=== PATIENT | female | born 1970 | race Caucasian/White ===

== ENCOUNTER 2020-07-04 19:53 | Emergency (ER) | payer OTHER, SELFPAY ==
[2020-07-04 20:01] VITALS: BP 116/68; PULSE 107; RESP 18; TEMP 36.8; O2SAT 95; BMI 22.9
--- NOTE | 2020-07-04 21:05 | ED_ITS ---
HPI - Alcohol General Chief Complaint: ETOH/Substance Use Stated Complaint: crisis Time Seen by Provider: 07/04/20 21:04 Source: patient Mode of arrival: ambulatory Limitations: other (intoxication) History of Present Illness HPI narrative: + ETOH hx of opiate abuse on suboxone wrote some concerning sticky notes with SI statements on them at this time she isn't really sure why or how she did it, denies SI, concerned complaint: alcohol intoxication Last drink: Days (ago) (14) Chronic alcohol use: Yes Previous visits for alcohol intoxication: Yes Recent trauma: No Associated symptoms: depression Treatments prior to arrival: none Related Data Allergies Allergy/AdvReac Type Severity Reaction Status Date / Time amoxicillin [From Augmentin] Allergy Hives Verified 07/04/20 20:09 clavulanic acid Allergy Hives Verified 07/04/20 20:09 [From Augmentin] Review of Systems Review of Systems: Constitutional : No Fever, No Chills ENT/Mouth : No Ear Pain, No Nasal Congestion, No sore throat Eyes: No Eye Pain, No Swelling, No Redness Cardiovascular : No Chest Pain, No SOB Respiratory : No Cough, No Sputum, No Dyspnea Gastrointestinal : No Nausea, No Vomiting, No Diarrhea, No Hematochezia, No Melena Genitourinary : No Dysuria, No Urinary Frequency, No Hematuria Musculoskeletal : No Myalgias Skin : No Skin Lesions, No rash Neuro : No Weakness, No Numbness, No Paresthesias, No Dizziness, No Headache Psych : positive Anxiety, positive Depression, no SI/HI Heme/Lymph: No Lymphadenopathy Endocrine : No Polyuria, No Polydipsia All other systems reviewed and are negative [facility], [facility] Past Medical History Attestation statement: The following information was validated with the patient. Medical History Depression ETOH abuse Narcotic abuse Shoulder pain Social History Social History (Updated 07/04/20 @ 21:44 by Denita Tom DO) Alcohol intake: current Smoking Status: Current every day smoker Use of substances other than those prescribed or required for medical reasons: Yes Advance Directives: No Advance Directives Information Provided: Yes Physical Exam Vital Signs: Vital Signs: Last Vital Signs Temp 98.0 F 07/05/20 01:05 Pulse 64 07/05/20 01:05 Resp 16 07/05/20 02:00 BP 109/75 07/05/20 01:05 Pulse Ox 99 07/05/20 01:05 Body Mass Index 22.9 Appearance: Alert. Oriented X3. No acute distress. ETOH odor, slurred speech Eyes: Pupils equal, round and reactive to light. ENT: Pharynx normal. Neck: Normal inspection. Neck supple. CVS: Normal heart rate and rhythm. Pulses normal. Respiratory: No respiratory distress. Breath sounds normal. Abdomen: Soft and non-tender. Skin: Skin warm and dry. Normal skin color. Normal skin turgor. Extremities: No lower extremity edema. No calf ttp Neuro: Oriented X 3. No motor deficit. No sensory deficit. CN 2-12 intact Psych: no SI/HI but reports depression Course Course Course Narrative: signed out pending CARE team consult MDM - Alcohol MDM Narrative Medical decision making narrative: 49 yo female with hx of opiate abuse on suboxone but recently started drinking made some SI statements on sticky notes today - at this time will need labs, [facility] consult given the notes and concerning statements she made in triage Lab Data Result diagrams: 07/04/20 21:26 07/04/20 21:26 Labs: Lab Results 07/04/20 07/04/20 07/04/20 Range/Units 21:26 21:26 21:26 WBC 6.6 (4.8-10.8) X10*3/uL RBC 4.61 (4.20-5.50) X10*6/uL Hgb 14.6 (12.0-16.0) g/dl Hct 43.2 (37-47) % MCV 93.7 (80-98) fL MCH 31.7 (27.0-33.0) pg MCHC 33.8 (31.0-35.0) g/dl RDW 12.6 (11.0-16.0) % Plt Count 234 (160-400) X10*3/uL MPV 8.6 L (9.4-12.3) fL Immature Gran % (Auto) 0.5 H (0.0-0.4) % Neut % (Auto) 61.2 (45-73) % Lymph % (Auto) 32.7 (20-40) % Caswell % (Auto) 4.1 (2-11) % Eos % (Auto) 0.9 (0-4) % Baso % (Auto) 0.6 (0-2) % Lymph # (Auto) 2.2 (1.2-4.9) X10*3/uL Caswell # (Auto) 0.3 (0.1-1.2) X10*3/uL Eos # (Auto) 0.1 (0.0-0.4) X10*3/uL Baso # (Auto) 0.0 (0.0-0.2) X10*3/uL Abs Immat Gran (auto) 0.03 (0.00-0.03) X10*3/uL Absolute Neuts (auto) 4.1 (2.0-8.3) X10*3/uL Absolute Nucleated RBC 0.000 (0.0-0.012) X10*3/uL Nucleated RBC % (auto) 0.0 (0.0-0.2) /100WBC Sodium 145 (135-145) mmol/L Potassium 3.6 (3.3-5.1) mmol/L Chloride 109 H (96-108) mmol/L Carbon Dioxide 26 (22-29) mmol/L Anion Gap 14 (12-20) BUN 7 L (9-16) mg/dL Creatinine 0.76 (0.5-1.4) mg/dL Estim Creat Clear Calc 78.8 Estimated GFR > 60 Random Glucose 101 (60-115) mg/dL Calcium 8.6 (8.4-10.2) mg/dL Urine Opiates Screen (Not Detect) Ur Barbiturates Screen (Not Detect) Ur Phencyclidine Scrn (Not Detect) Ur Amphetamines Screen (Not Detect) U Benzodiazepines Scrn (Not Detect) Urine Cocaine Screen (Not Detect) U Marijuana (THC) Screen (Not Detect) Ethyl Alcohol mg/dL COVID-19 (FRAN) Negative (Negative) COVID-19 Clin Com See Note 07/04/20 07/05/20 Range/Units 21:26 01:10 WBC (4.8-10.8) X10*3/uL RBC (4.20-5.50) X10*6/uL Hgb (12.0-16.0) g/dl Hct (37-47) % MCV (80-98) fL MCH (27.0-33.0) pg MCHC (31.0-35.0) g/dl RDW (11.0-16.0) % Plt Count (160-400) X10*3/uL MPV (9.4-12.3) fL Immature Gran % (Auto) (0.0-0.4) % Neut % (Auto) (45-73) % Lymph % (Auto) (20-40) % Caswell % (Auto) (2-11) % Eos % (Auto) (0-4) % Baso % (Auto) (0-2) % Lymph # (Auto) (1.2-4.9) X10*3/uL Caswell # (Auto) (0.1-1.2) X10*3/uL Eos # (Auto) (0.0-0.4) X10*3/uL Baso # (Auto) (0.0-0.2) X10*3/uL Abs Immat Gran (auto) (0.00-0.03) X10*3/uL Absolute Neuts (auto) (2.0-8.3) X10*3/uL Absolute Nucleated RBC (0.0-0.012) X10*3/uL Nucleated RBC % (auto) (0.0-0.2) /100WBC Sodium (135-145) mmol/L Potassium (3.3-5.1) mmol/L Chloride (96-108) mmol/L Carbon Dioxide (22-29) mmol/L Anion Gap (12-20) BUN (9-16) mg/dL Creatinine (0.5-1.4) mg/dL Estim Creat Clear Calc Estimated GFR Random Glucose (60-115) mg/dL Calcium (8.4-10.2) mg/dL Urine Opiates Screen Not Detected (Not Detect) Ur Barbiturates Screen Not Detected (Not Detect) Ur Phencyclidine Scrn Not Detected (Not Detect) Ur Amphetamines Screen Not Detected (Not Detect) U Benzodiazepines Scrn Not Detected (Not Detect) Urine Cocaine Screen Not Detected (Not Detect) U Marijuana (THC) Screen Not Detected (Not Detect) Ethyl Alcohol 300 H* mg/dL COVID-19 (FRAN) (Negative) COVID-19 Clin Com Discharge Plan Discharge Clinical Impression: Alcoholic intoxication Qualifiers: Complication of substance-induced condition: uncomplicated Qualified Code(s): F10.920 - Alcohol use, unspecified with intoxication, uncomplicated
--- NOTE | 2020-07-04 21:21 | PC.NURSE ---
at bedside for primary eval. Covid swab obtained and sent. customer service technician at bedside to obtain labs. Awaiting results.
[2020-07-04 21:41] LABS: MANUAL DIFF FLAG NO
[2020-07-04 21:44] LABS: Basophils Percent Auto 0.6 % (0-2); Eosinophils Absolute Auto 0.1 X10*3/uL (0.0-0.4); Eosinophils Percent Auto 0.9 % (0-4); Hematocrit 43.2 % (37-47); Hemoglobin 14.6 g/dl (12.0-16.0); Imm Gran Abs Auto 0.03 X10*3/uL (0.00-0.03); Imm Gran Pct Auto 0.5 % (0.0-0.4); Lymphocytes Absolute Auto 2.2 X10*3/uL (1.2-4.9); Lymphocytes Percent Auto 32.7 % (20-40); Mean Corpuscular HGB Conc 33.8 g/dl (31.0-35.0); Mean Corpuscular Hemoglobin 31.7 pg (27.0-33.0); Mean Corpuscular Volume 93.7 fL (80-98); Mean Platelet Volume 8.6 fL (9.4-12.3); Monocytes Absolute Auto 0.3 X10*3/uL (0.1-1.2); Monocytes Percent Auto 4.1 % (2-11); Neutrophils Absolute Auto 4.1 X10*3/uL (2.0-8.3); Neutrophils Percent Auto 61.2 % (45-73); Platelet Count 234 X10*3/uL (160-400); Red Blood Count 4.61 X10*6/uL (4.20-5.50); Red Cell Distribution Width 12.6 % (11.0-16.0); White Blood Count 6.6 X10*3/uL (4.8-10.8)
[2020-07-04 22:00] VITALS: RESP 16
[2020-07-04 22:00] LABS: IDNOW Serial# 9DD0AD1C
[2020-07-04 22:01] LABS: COVID-19 Test Negative (Negative)
[2020-07-04 22:06] LABS: Ethanol 300 mg/dL
[2020-07-04 22:07] LABS: Anion Gap 14 (12-20); Blood Urea Nitrogen 7 mg/dL (9-16); Calcium 8.6 mg/dL (8.4-10.2); Carbon Dioxide 26 mmol/L (22-29); Chloride 109 mmol/L (96-108); Creatinine Clr Calc Pharmacy 78.8; Estimated Glomerular Filt Rate > 60; Glucose Random 101 mg/dL (60-115); Potassium 3.6 mmol/L (3.3-5.1); Sodium 145 mmol/L (135-145)
[2020-07-05 01:05] VITALS: BP 109/75; PULSE 64; RESP 16; TEMP 36.7; O2SAT 99
[2020-07-05 01:45] LABS: Amphetamine Screen Urine Not Detected (Not Detect); Barbiturates, Urine Not Detected (Not Detect); Benzodiazepines Screen Urine Not Detected (Not Detect); Cannabinoid Screen Urine Not Detected (Not Detect); Cocaine Screen Urine Not Detected (Not Detect); Opiate Screen Urine Not Detected (Not Detect); Phencyclidine Screen Urine Not Detected (Not Detect)
[2020-07-05 02:00] VITALS: RESP 16
[2020-07-05 05:49] VITALS: RESP 16
[2020-07-05 08:39] VITALS: RESP 18
--- NOTE | 2020-07-05 08:41 | PC.NURSE ---
patient up in bed eating dinner
[2020-07-05] MEDS: Acetaminophen 325 MG TABLET 650 MG PO (09:23)
--- NOTE | 2020-07-05 10:20 | MHC.CARE ---
CARE team to meet w pt for concern of ETOH intoxication and seeking detox per triage note as well as possible suicidal ideation statements that were handed to nsg last night from pts . Pt is currently denying suicidal ideation and stated she has no memory of making such statements. T/w placed a call to pts In[facility] [phone] no answer and no voicemail.
--- NOTE | 2020-07-05 11:24 | MHC.CARE ---
CARE team provided pt with a phone to call her as she wished and alerted her that he was called twice by t/w without answer. She called pt and he answered. Pt was referred to in house team for assist in detox bedsearch. Pt expressed interest and willingness to seek this tx.
--- NOTE | 2020-07-05 11:49 | MHC.RECOVSUP ---
Recovery Support note: Patient is a 49 year old Belgian speaking female who presented to [facility] ED after making SI statements while intoxicated. Patient was seen by CARE Team this morning and denied SI however reported she was interested in going to detox. This marine underwriter and a Program Review Director met with patient to discuss treatment options. Patient reported her was on the phone with [facility] to get her treatment and that she was agreeable to this. Explained to patient that she would benefit from inpatient medical detox prior to outpatient treatment. Patient acknowledged. Patient reports she had dealt with opioid withdrawal in the past and that she has been on Suboxone for 8 years. Patient reports she is ready to get into recovery and that she is willing to go to detox. This marine underwriter spoke with patient's and explained that detox referrals had been made. denies safety concerns and reports that he believes the statements made were a cry for help and that patient is not suicidal. reports he is able to transport patient to treatment facility once a bed is secured. This marine underwriter awaits a follow up call from [facility] to determine if patient is able to move forward with a phone intake. Patient agreeable at this time to remain in the ED until placement is secured.
[2020-07-05 12:47] VITALS: RESP 18
--- NOTE | 2020-07-05 12:47 | MHC.RECOVSUP ---
Recovery Support note: Patient has completed intake with [facility] and has been accepted for a 1800 admission time. Patient is happy with plan and feels safe to discharge. Discussed plan with patient's who is also in agreement and available for transportation needs. ED Staff and CARE Team aware. Patient to discharge and follow up with [facility]. N-N number for [facility] ([phone]) has been given to patient's RN, Steven.
--- NOTE | 2020-07-05 16:01 | MHC.CARE ---
Pt is a 49 yro Amharic speaking female who presented to [facility] ED last night via private car seeking ETOH detox per pts . Per medical chart, pts expressed concern that pt needed acute care setting due to her ETOH dependence and for possible suicidal thinking. Triage note indicated that pts (Ino) provided 'sticky notes' with pts written notes indicating pt was thinking about suicide or references thereof. Pt was admitted to the ED for further assessment. CARE saw pt this am in ED 6H who was resting quietly on a stretcher awaiting to be seen. Pts BAL upon arrival was 300 of which is too high for clinical interview. Pt was soft spoken and presented with anxious mood but pleasant affect. Pt described feeling embarrassed of what I may have done or said last night. Pt has no memory of how she arrived or that she may have said and written suicidal thoughts. Pt was informed prior to t/w arrival of this and pt asked t/w if she could see these notes as it was too much for her to imagine that she would make such statements. Pt firmly denied knowingly making suicidal statements and added that she would not harm herself due to her relationship with her mother and her . Pt did admit that she is fully aware and willing at this point to seek detox help. T/w and pt reviewed tx options and t/w recommendation was a firm detox referral or medical admission due to the severity of her daily ETOH frequency and amount. Pt has reportedly attempted mental health counseling multiple times over the last 5 years and has not found it helpful. Pt admitted that she continues to choose to drink and has increased the amount is her ETOH to over 10-15 nips a day plus more depending on access. Pt has admitted to functioning daily with high amounts of ETOH on board and regrets this today. Pt does not feel that she can stop drinking and yet expressed sincere desire to stop. Pt is willingly seeking tx at this time. Pts was calling detox facilities all morning on pts behalf. Pt spoke w her later this am and he was also in favor and supportive of this plan. Pt does not have a remarkable mental health hx or tx hx. Pt has experienced chemical dependence 6 years ago when she disclosed that she was abusing pain medications and had a hard time getting off them . Pt has had success from using suboxone and family support. Pt would consider other avenues of support ie: counseling, support groups and IOP after she completes detox. Pt was referred to in house team specializing in addictions to assist in detox placement. Pt was secured an interview and later a bed at [facility] for today. Case reviewed with ED provider who discharged pt in support of this formal plan.
== END 2020-07-05 13:19 | disposition home or self-care (01) ==
PROVIDERS: Emergency Provider Emergency Medicine; PCP Pediatrics
DX: F10.120 Alcohol abuse with intoxication, uncomplicated (principal); Y90.8 Blood alcohol level of 240 mg/100 ml or more; R45.851 Suicidal ideations; Z20.822 Contact with and (suspected) exposure to COVID-19; F11.20 Opioid dependence, uncomplicated; F17.200 Nicotine dependence, unspecified, uncomplicated
CPT/HCPCS: 36415; 80048; 80307; 80320; 85025; 87635; 99285

== ENCOUNTER → 2020-11-13 13:05 | Outpatient (BNVA) | payer OTHER, SELFPAY | PROVIDERS: PCP Pediatrics | DX: N32.81 Overactive bladder (principal) | CPT/HCPCS: 51798; 99202 ==

== ENCOUNTER → 2021-02-04 15:36 | Outpatient (BNVA) | payer OTHER, SELFPAY | PROVIDERS: PCP Pediatrics ==

== ENCOUNTER → 2021-04-08 13:32 | Outpatient (BNVA) | payer OTHER, SELFPAY | PROVIDERS: PCP Pediatrics ==

== ENCOUNTER 2021-10-09 20:45 | Emergency (ER) | payer OTHER, SELFPAY ==
--- NOTE | ~2021-10-09 | XR_ITS ---
EXAMINATION: XR ELBOW, RIGHT CLINICAL INFORMATION: Elbow pain COMPARISON: None TECHNIQUE: AP, lateral, and oblique views of the right elbow. FINDINGS: There is an acute fracture of the radial head with intra-articular extension. There is a small joint effusion. There is mild calcific tendinopathy. The elbow joint maintains normal alignment. XR/XR elbow RT 2V IMPRESSION: Acute radial head fracture.
[2021-10-09 21:28] VITALS: BP 178/120; PULSE 78; RESP 18; O2SAT 97; BMI 24.1
--- NOTE | 2021-10-10 00:29 | ED_ITS ---
HPI - Extremity Problem General Chief complaint: Extremity Injury, Upper Stated complaint: fall/arm INJ Time Seen by Provider: 10/09/21 21:53 Source: patient Mode of arrival: ambulatory Limitations: no limitations History of Present Illness HPI Narrative: Patient presents emergency department for evaluation of pain to her right elbow. She reports a mechanical trip and fall earlier today, she tripped on a curb. She states that she was evaluated at [facility] and was advised to come to the emergency department for further management. Pain present to the left elbow and radiates down the forearm. Denies any numbness or tingling. Is unable to move her arm at this time. She states that she did hit her head when this occurred as well, denies loss of consciousness, vision changes, dizziness, lightheadedness, headache, neck pain, neck stiffness, use of anticoagulants. Related Data Home Medications Medication Instructions Recorded Confirmed buprenorphine 8 mg-naloxone 2 mg 1.5 strip SUBLINGUAL DAILY 07/05/20 07/05/20 sublingual film (Suboxone) bupropion HCl 300 mg 24 hr tablet, 1 tab PO DAILY 07/05/20 07/05/20 extended release lisinopril 10 mg tablet 1 tab PO DAILY 07/05/20 07/05/20 naproxen 500 mg tablet 1 tab PO BID PRN 07/05/20 07/05/20 omeprazole 20 mg capsule,delayed 1 cap PO DAILY 07/05/20 07/05/20 release sertraline 50 mg tablet 50 mg PO DAILY 07/05/20 07/05/20 trazodone 50 mg tablet 50 mg PO BID 07/05/20 07/05/20 bupropion HCl 150 mg 24 hr tablet, 150 mg PO QAM 02/04/21 extended release dicyclomine 10 mg capsule 10 mg PO TID 02/04/21 oxybutynin chloride 10 mg 10 mg PO DAILY 02/04/21 tablet,extended release 24 hr paroxetine HCl 20 mg tablet 20 mg PO DAILY 02/04/21 sertraline 100 mg tablet 100 mg PO BID 02/04/21 Previous Rx's Medication Instructions Recorded vibegron 75 mg tablet (Gemtesa) 75 mg PO DAILY #30 tab 04/08/21 ketorolac 10 mg tablet 10 mg PO Q6H PRN 5 Days tab 10/10/21 Allergies Allergy/AdvReac Type Severity Reaction Status Date / Time amoxicillin [From Augmentin] Allergy Hives Verified 02/04/21 15:43 clavulanic acid Allergy Hives Verified 02/04/21 15:43 [From Augmentin] Review of Systems Review of Systems: Constitutional: No fever, chills, weakness or fatigue. Skin: No rash or itching. Cardiovascular: No chest pain. Respiratory: No shortness of breath, cough or sputum production. Gastrointestinal: No anorexia, nausea, vomiting or diarrhea. No abdominal pain or blood in stool. Genitourinary: No burning micturition. No urinary frequency or incontinence. Musculoskeletal: Positive elbow pain. Psychiatric: No depression or anxiety. [facility] Past Medical History Attestation statement: The following information was validated with the patient. Source: old records reviewed Medical History Depression ETOH abuse Narcotic abuse Shoulder pain Social History Social History Alcohol intake: current Alcohol intake frequency: 3 or more drinks per day Advance Directives: No Physical Exam Vital Signs: Vital Signs: Last Vital Signs Pulse 78 10/09/21 21:28 Resp 18 10/09/21 21:28 BP 169/103 H 10/10/21 00:31 Pulse Ox 97 10/09/21 21:28 BMI result Body Mass Index 24.1 Vital signs have been reviewed as normal and appeared to be correct. Blood pressure normal.? Heart rate normal.? Respiration rate normal. Temperature 97.8.? Oxygen saturation normal. Appearance: Alert.?Oriented to person, place and time. No acute distress.?Normal affect. Eyes: Pupils equal, round and reactive to light.? EOMI. No nystagmus. ENT: Pharynx normal.?? Neck: Normal inspection.? Neck supple.??No palpable midline cervical spine tenderness, step-offs, deformities. CVS: Heart sounds normal. Normal heart rate and rhythm.? Pulses normal.?? Respiratory: No respiratory distress.? Lung sounds clear to auscultation bilaterally?? Abdomen: Soft and non-tender. Normoactive bowel sounds. Skin: Skin warm and dry.? Normal skin color.? Extremities: No obvious deformity to the right elbow/forearm, palpable 2+ radial pulse is, neurovascularly intact distally, limited AROM to elbow. Full AROM to right shoulder, right wrist/hand. Neuro: Moves all extremities spontaneously. Sensation intact bilaterally. CN II- XII intact. No focal neuro deficits. Ambulates with normal steady gait. Course Course Course Narrative: Patient is a 51-year-old female presenting to the emergency department after a mechanical trip and fall. Did have head strike, but no loss of consciousness, no neurological deficits, no anticoagulants. Discussed plan of care with patient, would defer CT imaging at this time. X-ray reveals an acute fracture of the radial head with intra-articular extension and a small joint effusion. Patient placed in a posterior long arm splint, and placed in a sling to immobilize the arm. She received IM ketorolac while in the emergency department, and tolerated this well. She takes Suboxone as well. She remained neurovascularly intact distally after application of the splint. Advised that she will need to contact the orthopedic office tomorrow to schedule an outpatient appointment for further follow-up. All questions were answered, and she was discharged home in stable condition. MDM - Extremity (Nontraumatic) Medical Records Attestation: I reviewed the patient's medical records. Imaging Data elbow XR: Radiologist's impression: FINDINGS: There is an acute fracture of the radial head with intra-articular extension. There is a small joint effusion. There is mild calcific tendinopathy. The elbow joint maintains normal alignment. XR/XR elbow RT 2V IMPRESSION: Acute radial head fracture. Discharge Plan Discharge Clinical Impression: Fracture of head of radius Patient Disposition: Home, Self-Care Instructions: Elbow Fracture (ED) Additional Instructions: You have a radial head fracture seen on x-ray. Do not get the splint wet, use the sling to help keep your arm from moving. You have been given a new prescription for ketorolac, do not take ibuprofen/Motrin, naproxen/Aleve, or aspirin while taking this medication. You may take Tylenol in addition to this. Continue taking your Suboxone as prescribed. Return to the emergency department any new or worsening symptoms or concerns. Contact orthopedic office tomorrow morning to schedule a follow-up visit. Prescriptions: New ketorolac 10 mg tablet 10 mg PO Q6H PRN (Reason: pain) 5 Days 0RF Rx Instructions: Patient tolerated intramuscular ketorolac in the emergency department without complication. No Action trazodone 50 mg tablet 50 mg PO BID 0RF lisinopril 10 mg tablet 1 tab PO DAILY 0RF omeprazole 20 mg capsule,delayed release(DR/EC) 1 cap PO DAILY 0RF sertraline 50 mg tablet 50 mg PO DAILY 0RF naproxen 500 mg tablet 1 tab PO BID PRN (Reason: pain) 0RF bupropion HCl 300 mg tablet extended release 24 hr 1 tab PO DAILY 0RF buprenorphine-naloxone [Suboxone] 8-2 mg film 1.5 strip sublingual DAILY 0RF Gemtesa 75 mg tablet 75 mg PO DAILY Qty: 30 3RF Referrals: Luis Alberto Smith, MAGGI [Physician M[facility] Reactor Operator Head] - 3 days
[2021-10-10 00:31] VITALS: BP 169/103
[2021-10-10] MEDS: Ketorolac Tromethamine 60 MG/2 ML VIAL IM (00:43)
--- NOTE | 2021-10-10 01:07 | PC.NURSE ---
POSTERIOR LONG ARM SPLINT APPLY TO PATIENT RIGHT ARM .
== END 2021-10-10 01:25 | disposition home or self-care (01) ==
PROVIDERS: Emergency Provider Internal Medicine; PCP Internal Medicine
DX: S52.121A Displaced fracture of head of right radius, initial encounter for closed fracture (principal); M25.521 Pain in right elbow; W01.0XXA Fall on same level from slipping, tripping and stumbling without subsequent striking against object, initial encounter; Y93.9 Activity, unspecified; Y92.480 Sidewalk as the place of occurrence of the external cause; Y99.9 Unspecified external cause status; Z79.899 Other long term (current) drug therapy
CPT/HCPCS: 29105; 73070; 96372; 99282; 99284; J1885

== ENCOUNTER → 2021-10-15 13:25 | Outpatient (BNVA) | payer OTHER, SELFPAY | PROVIDERS: PCP Internal Medicine; Visit Provider Physician Assistant | DX: S52.121A Displaced fracture of head of right radius, initial encounter for closed fracture (principal) | CPT/HCPCS: 99202 ==

== ENCOUNTER 2021-11-12 07:46 | Outpatient (REF) | payer OTHER, SELFPAY ==
--- NOTE | ~2021-11-12 | XR_ITS ---
EXAMINATION: XR ELBOW, RIGHT CLINICAL INFORMATION: Follow-up fracture COMPARISON: None TECHNIQUE: AP, lateral, and oblique views of the right elbow. FINDINGS: There is a nondisplaced fracture of the radial head. Alignment is similar to previous exam. There is some new bony callus formation suggestive of evidence of healing. No other fracture is seen. Joint spaces are normal. There is an elbow joint effusion. There is soft tissue calcification adjacent to the lateral humeral condyle. XR/XR elbow RT min 3V IMPRESSION: Healing radial head fracture.
== END 2021-11-12 07:47 | disposition home or self-care (01) ==
LOC: HO.HOSX 07:46
PROVIDERS: Visit Provider Physician Assistant
DX: M25.521 Pain in right elbow (principal); S52.124A Nondisplaced fracture of head of right radius, initial encounter for closed fracture; W01.198A Fall on same level from slipping, tripping and stumbling with subsequent striking against other object, initial encounter; Y93.01 Activity, walking, marching and hiking; Y92.9 Unspecified place or not applicable; Y99.8 Other external cause status
CPT/HCPCS: 73080; 99212

== ENCOUNTER 2021-12-11 10:42 | Outpatient (REF) | payer OTHER, SELFPAY ==
--- NOTE | ~2021-12-11 | XR_ITS ---
EXAMINATION: XR ELBOW, RIGHT CLINICAL INFORMATION: Pain. COMPARISON: Prior radiographs dated 11/12/2021 and 10/09/2021. TECHNIQUE: AP, lateral, and oblique views of the right elbow. FINDINGS: Bony alignment and mineralization are normal. A mildly displaced fracture is noted of the radial head, in stable alignment. There is a small amount of periosteal callus formation. No dislocation is seen. There is no significant joint effusion. No foreign body is seen. XR/XR elbow RT min 3V IMPRESSION: There is stable alignment of a radial head fracture, with persistent fracture line noted.
== END 2021-12-11 10:43 | disposition home or self-care (01) ==
LOC: HO.HOSX 10:42
PROVIDERS: Visit Provider Physician Assistant
DX: S52.121D Displaced fracture of head of right radius, subsequent encounter for closed fracture with routine healing (principal)
CPT/HCPCS: 73080; 99212

== ENCOUNTER 2023-09-28 11:10 | Outpatient (AMB) | payer OTHER, SELFPAY ==
--- NOTE | 2023-09-28 11:12 | MHC.PC.OV ---
Vital Signs 09/28/23 11:20 Height 5 ft 5 in Weight 160 lb 8 oz BMI 26.7 BP 102/80 Blood Pressure Location Lt brachial Position Sitting Respiration 14 Pulse 85 Pulse Source Pulse Oximeter Temp 98.4 F Temp Source Oral Pulse Oximetry (%) 94 Oxygen Delivery Method Room Air Intake Visit Reasons: Est Care Intake Note: New patient visit Cigar Bander Hand Required: No Allergies amoxicillin [From Augmentin] Allergy (Verified 09/28/23 11:17) Hives clavulanic acid [From Augmentin] Allergy (Verified 09/28/23 11:17) Hives Medication List - Last Reconciled 09/28/23 by Nereyda Sheppard MD acamprosate 666 mg PO TID nicotine apply 1-21 mg NICOTINE PATCH daily for 28 days; follow with 1-14 mg PATCH daily for 14 days, then 1-7mg PATCH daily for 14 days transdermal omeprazole 1 cap PO DAILY trazodone 50 mg PO BID Tobacco use date assessed: 09/28/23 Dental Screening Dental Screen Date: 09/28/23 Did you have a dental visit in the last 12 months?: Yes Did you have a dental problem in the last 6 months where you did not have access to dental care?: No Was dental information given to patient?: Patient has dentist HPI HPI Comments History of Present Illness Details 52 year old female with a past medical history htn, resolved eoth, esophageal stricture, thyroid nodules, depression presenting for follow up Psych: Anxiety & Depression: On effexor, propranolol. Was on wellbutrin for years. continues addiction support on suboxone & acamprosate CV: Previously on BP meds. High at last visit GI: Reflux, gastritis well controlled on PPI. Has esophageal stricutre, gets dilation. Follow with [facility] Dr Bond. MSK: Low back pain, DDD, Seeing ortho. Upcoming visit. Joint pain, bilateral hands with swelling. Endocrine: DXA with osteoporosis: referred for treatment given GI history. Heme/Onc Neck u/s with LN-indeterminate, stable. There was consideration for biopsy she was referred. Colonoscopy 2018-Dr Bond. 10 year repeat Follows annually with gynecology. s/p partial hysterectomy Mammo 10/2022 [facility] Medical History (Updated 09/29/23 @ 08:57 by Nereyda Sheppard MD) Hernia Lipoma of right upper extremity Narcotic abuse ETOH abuse Shoulder pain Depression Surgical History (Updated 09/28/23 @ 11:34 by Kimberlyn Fernandez CMA) History of partial hysterectomy Family History (Updated 09/28/23 @ 12:54 by Kimberlyn Fernandez CMA) Father Asthma HTN (hypertension) Hypercholesteremia Cardiovascular disease Clotting disorder Maternal Grandmother Asthma HTN (hypertension) Hypercholesteremia Cardiovascular disease Paternal Grandfather Asthma Hypercholesteremia Leukemia Social History (Updated 09/28/23 @ 11:18 by Kimberlyn Fernandez CMA) Housing: House Alcohol intake: current Alcohol intake frequency: 3 or more drinks per day Patient Tobacco Use Status: Former Tobacco user Cigarette Packs Per Day: 1 Years Smoked: 43 quit 07/2023 e-Cigarette/Vaping Use: Never Used Second Hand Smoke Exposure: No Substance Use Type: Marijuana service: No Current occupational status: unemployed Cognitive needs: No Hearing needs: No Vision needs: No Questionnaire PHQ-9 Over the last 2 weeks, how often have you been bothered by any of the following problems? 1. Little interest or pleasure in doing things: nearly every day 2. Feeling down, depressed, or hopeless: nearly every day 3. Trouble falling or staying asleep, or sleeping too much: several days 4. Feeling tired or having little energy: nearly every day 5. Poor appetite or overeating: more than half the days 6. Feeling bad about yourself - or that you are a failure or have let yourself or your family down: nearly every day 7. Trouble concentrating on things, such as reading the newspaper or watching television: nearly every day 8. Moving or speaking so slowly that other people could have noticed. Or the opposite - being so fidgety or restless that you have been moving around a lot more than usual: several days 9. Thoughts that you would be better off or of hurting yourself in some way: not at all Total score: 19 Depression Screening Interpretation: Positive Depression Screening Follow-up: Existing condition Depression Screening Done: Yes 13258 - PHQ-9 Billing: Yes Source: Developed by Drs. Chad Arteaga, Sofía Garvin, Dre Seymour and colleagues, with an educational ila from [employer]. Thrive Questionnaire Date Thrive assessed: 09/28/23 I am a: Patient What is your living situation today?: I have a steady place to live Within the past 12 months, did the food you bought not last and you didn't have the money to get more?: Never true Within the past 12 months, did you worry whether your food would run out before you got money to buy more?: Never true Do you have trouble paying for medicines?: No Do you have trouble getting transportation to medical appointments?: No Do you have trouble paying your heating and electricity bill?: No Do you have trouble taking care of your child, family member or friend?: No Do you have trouble with day-to-day activities such as bathing, preparing meals, shopping, managing finances, etc.?: No Are you currently unemployed and looking for a job?: No Are you interested in more education?: No Please select the resources that you would like help with: None Currently or been in a relationship where the following occur: no concerns reported THRIVE Score: 0 AUDIT C Alcohol Use Questionnaire (AUDIT-C) 1. How often do you have a drink containing alcohol?: 2-4 times a month 2. How many drinks containing alcohol do you have on a typical day when you are drinking?: 1 or 2 3. How often do you have six or more drinks on one occasion?: Less than monthly Total Score: 3 DAMIAN-7 AMB Questionnaire DAMIAN-7 Date DAMIAN - 7 assessed: 09/28/23 Feeling nervous, anxious, or on edge: 2 = More than half the days Not being able to stop or control worryin = Nearly every day Worrying too much about different things: 3 = Nearly every day Trouble relaxin = Nearly every day Being so restless that it is hard to sit still: 3 = Nearly every day Becoming easily annoyed or irritable: 2 = More than half the days Feeling afraid as if something awful might happen: 3 = Nearly every day Total DAMIAN-7 score (0-4 normal; 5-9 mild; 10-14 moderate; 15-21 severe): 19 Source: Developed by Drs. Chad Arteaga, Sofía Garvin, Dre Seymour and colleagues, with an educational ila from [employer] DAMIAN-7 Assessment Billing DAMIAN-7 Assessment Tool: DAMIAN-7 Assessment 90260 Review of Systems Const Details: ROS CONSTITUTIONAL: Denies weight loss, fever and chills. HEENT: Denies changes in vision and hearing. RESPIRATORY: Denies SOB and cough. CV: Denies palpitations and CP GI: Denies abdominal pain, nausea, vomiting and diarrhea. : Denies dysuria and urinary frequency. MSK: Denies new myalgia and joint pain. SKIN: Hair loss x months NEUROLOGICAL: Denies headache PSYCHIATRIC: Denies recent changes in mood. Physical exam (Primary Care) Vital Signs: Last Vital Signs Temp 98.4 F 09/28/23 11:20 Pulse 85 09/28/23 11:20 Resp 14 09/28/23 11:20 BP 102/80 09/28/23 11:20 Pulse Ox 94 09/28/23 11:20 Oxygen Delivery Method Room Air 09/28/23 11:20 PHYSICAL EXAM: GENERAL: Alert and oriented x 3. NAD EYES: EOMI. Anicteric. HENT: Moist mucous membranes. No scleral icterus. No cervical lymphadenopathy. LUNGS: Clear to auscultation bilaterally. CARDIOVASCULAR: Regular rate and rhythm. No murmur. No JVD. ABDOMEN: Soft, non-tender +bs EXTREMITIES: No edema. Non-tender. SKIN: No rashes or lesions. Warm. NEUROLOGIC: No focal neurological deficits. PSYCHIATRIC: Cooperative. Appropriate mood and affect BMI result Body Mass Index 26.7 Tobacco/Smoking Status: Tobacco use Status Tobacco use date assessed 09/28/23 09/28/23 11:31 Patient Tobacco Use Status Former Tobacco user 09/28/23 11:31 e-Cigarette/Vaping Use Never Used 09/28/23 11:31 PHQ-9: PHQ-9 Score PHQ-9: Total score 19 09/28/23 13:45 Depression Screening Interpretation: Positive Depression Screening Follow-up: Existing condition Thrive Assessment: Date of Thrive Assessment Date Thrive assessed 09/28/23 09/28/23 12:46 Currently or been in a relationship where the following occur: no concerns reported Assessment and Plan Assessment & Plan (1) Hypertension: Comment: controlled Code(s): I10 - Essential (primary) hypertension Qualifiers: Hypertension type: primary hypertension Qualified Code(s): I10 - Essential (primary) hypertension (2) Cervical spondylolysis: Comment: chronic neck and low back pain. Code(s): M43.02 - Spondylolysis, cervical region (3) Major depressive disorder, recurrent, in partial remission: Comment: continue current medications. Declines referral. Follows at [facility] Code(s): F33.41 - Major depressive disorder, recurrent, in partial remission (4) Lymph node enlargement: Comment: Monitor. s/p dental work with soft tissue swelling right cheek. Code(s): R59.9 - Enlarged lymph nodes, unspecified (5) Hiatal hernia: Code(s): K44.9 - Diaphragmatic hernia without obstruction or gangrene (6) Insomnia: Code(s): G47.00 - Insomnia, unspecified Qualifiers: Insomnia type: primary Qualified Code(s): F51.01 - Primary insomnia Plan: continue current medications. stable Orders: Orders Complete Blood Count Auto Diff 09/28/23 F33.41 - Major depressive disorder, recurrent, in partial remission, G47.00 - Insomnia, unspecified, I10 - Essential (primary) hypertension, K44.9 - Diaphragmatic hernia without obstruction or gangrene, L65.9 - Nonscarring hair loss, unspecified Comprehensive Met. Panel 09/28/23 F33.41 - Major depressive disorder, recurrent, in partial remission, G47.00 - Insomnia, unspecified, I10 - Essential (primary) hypertension, K44.9 - Diaphragmatic hernia without obstruction or gangrene, L65.9 - Nonscarring hair loss, unspecified TSH reflex Free T4 09/28/23 F33.41 - Major depressive disorder, recurrent, in partial remission, G47.00 - Insomnia, unspecified, I10 - Essential (primary) hypertension, K44.9 - Diaphragmatic hernia without obstruction or gangrene, L65.9 - Nonscarring hair loss, unspecified Lipid Panel 09/28/23 F33.41 - Major depressive disorder, recurrent, in partial remission, G47.00 - Insomnia, unspecified, I10 - Essential (primary) hypertension, K44.9 - Diaphragmatic hernia without obstruction or gangrene, L65.9 - Nonscarring hair loss, unspecified Vitamin B12 and Folate 09/28/23 F33.41 - Major depressive disorder, recurrent, in partial remission, G47.00 - Insomnia, unspecified, I10 - Essential (primary) hypertension, K44.9 - Diaphragmatic hernia without obstruction or gangrene, L65.9 - Nonscarring hair loss, unspecified Vitamin D 1,25 dihydroxy 09/28/23 F33.41 - Major depressive disorder, recurrent, in partial remission, G47.00 - Insomnia, unspecified, I10 - Essential (primary) hypertension, K44.9 - Diaphragmatic hernia without obstruction or gangrene, L65.9 - Nonscarring hair loss, unspecified Medications: New nicotine apply 1-21 mg NICOTINE PATCH daily for 28 days; follow with 1-14 mg PATCH daily for 14 days, then 1-7mg PATCH daily for 14 days transdermal 56 patches 0RF levofloxacin 750 mg PO DAILY 7 tabs 0RF nicotine apply 1-21 mg NICOTINE PATCH daily for 28 days; follow with 1-14 mg PATCH daily for 14 days, then 1-7mg PATCH daily for 14 days transdermal 56 patches 0RF hydroxyzine HCl 25 mg PO TID PRN 270 tabs 3RF itching Coding Level of Care Code Est Pt Level 4 (17556) Complex EM visit Add On G2211 Diagnoses Primary hypertension I10 Hypertension type: primary hypertension Cervical spondylolysis M43.02 Major depressive disorder, recurrent, in partial remission F33.41 Lymph node enlargement R59.9 Hiatal hernia K44.9 Primary insomnia F51.01 Insomnia type: primary Additional Codes DAMIAN-7 Assessment Billing - DAMIAN-7 Assessment Tool: DAMIAN-7 Assessment 18043 ([id number])
[2023-09-28 11:20] VITALS: BP 102/80; PULSE 85; RESP 14; TEMP 36.9; O2SAT 94; BMI 26.7
== END 2023-09-28 12:08 | disposition home or self-care (01) ==
PROVIDERS: PCP Internal Medicine; Visit Provider Internal Medicine
DX: I10 Essential (primary) hypertension (principal); M43.02 Spondylolysis, cervical region; F33.41 Major depressive disorder, recurrent, in partial remission; R59.9 Enlarged lymph nodes, unspecified; K44.9 Diaphragmatic hernia without obstruction or gangrene; F51.01 Primary insomnia
CPT/HCPCS: 99214; G2211

== ENCOUNTER 2023-10-02 10:30 | Outpatient (REF) | payer OTHER, SELFPAY ==
[2023-10-02 11:40] LABS: MANUAL DIFF FLAG NO
[2023-10-02 11:49] LABS: Basophils Percent Auto 0.4 % (0-2); Eosinophils Absolute Auto 0.1 X10*3/uL (0.0-0.4); Eosinophils Percent Auto 1.4 % (0-4); Hematocrit 42.5 % (37.0-47.0); Hemoglobin 14.2 g/dl (12.0-16.0); Imm Gran Abs Auto 0.01 X10*3/uL (0.00-0.03); Imm Gran Pct Auto 0.2 % (0.0-0.4); Lymphocytes Absolute Auto 1.6 X10*3/uL (1.2-4.9); Lymphocytes Percent Auto 32.4 % (20-40); Mean Corpuscular HGB Conc 33.4 g/dl (31.0-35.0); Mean Corpuscular Hemoglobin 29.6 pg (27.0-33.0); Mean Corpuscular Volume 88.7 fL (80.0-98.0); Mean Platelet Volume 9.3 fL (9.4-12.3); Monocytes Absolute Auto 0.3 X10*3/uL (0.1-1.2); Monocytes Percent Auto 5.9 % (2-11); Neutrophils Percent Auto 59.7 % (45-73); Platelet Count 253 X10*3/uL (160-400); Red Blood Count 4.79 X10*6/uL (4.20-5.50); Red Cell Distribution Width 13.9 % (11.0-16.0); White Blood Count 5.1 X10*3/uL (4.8-10.8)
[2023-10-02 12:50] LABS: Alanine Aminotransferase 53 U/L (0-31); Albumin Level 4.2 g/dL (3.5-5.0); Alkaline Phosphatase 60 U/L (39-117); Anion Gap 14 (12-20); Aspartate Amino Transferase 27 U/L (5-31); Bilirubin Total 0.5 mg/dL (0.0-1.0); Blood Urea Nitrogen 10 mg/dL (9-16); Calcium 9.4 mg/dL (8.4-10.2); Carbon Dioxide 25 mmol/L (22-29); Chloride 105 mmol/L (96-108); Cholesterol 161 mg/dL (<200); Estimated Glomerular Filt Rate > 60; Glucose Random 99 mg/dL (60-115); HDL Cholesterol 46 mg/dL (>40); LDL Cholesterol Calculated 90 mg/dL (<100); Potassium 3.8 mmol/L (3.3-5.1); Sodium 140 mmol/L (135-145); TSH reflex Free T4 0.74 uIU/mL (0.32-4.0); Total Protein 6.7 g/dL (6.5-8.0); Triglycerides 129 mg/dL (<150)
[2023-10-02 12:57] LABS: Folate 7.6 ng/mL (> or = 4.0); Vitamin B12 680 pg/mL (200-900)
[2023-10-07 17:38] LABS: VITAMIN D (1,25 OH) D3 42 pg/mL; Vit D (1,25-Dihydroxy) Total 42 pg/mL (18-72); Vitamin D (1,25 OH) D2 <8 pg/mL
== END 2023-10-02 10:31 | disposition home or self-care (01) ==
LOC: HO.WFDLDS 10:30
PROVIDERS: Visit Provider Internal Medicine
DX: L65.9 Nonscarring hair loss, unspecified (principal); G47.00 Insomnia, unspecified; K44.9 Diaphragmatic hernia without obstruction or gangrene; F33.41 Major depressive disorder, recurrent, in partial remission; I10 Essential (primary) hypertension
CPT/HCPCS: 36415; 80053; 80061; 82607; 82652; 82746; 84443; 85025

== ENCOUNTER 2024-01-04 09:33 | Outpatient (AMB) | payer OTHER, SELFPAY ==
--- NOTE | 2024-01-04 09:34 | MHC.PC.OV ---
Vital Signs 01/04/24 09:35 Height 5 ft 5 in Weight 154 lb 2 oz BMI 25.6 BP 120/86 Blood Pressure Location Rt brachial Position Sitting Pulse 79 Pulse Source Pulse Oximeter Pulse Oximetry (%) 93 Oxygen Delivery Method Room Air Intake Visit Reasons: 3 month f/u Allergies amoxicillin [From Augmentin] Allergy (Verified 01/04/24 09:37) Hives clavulanic acid [From Augmentin] Allergy (Verified 01/04/24 09:37) Hives Tobacco use date assessed: 01/04/24 Dental Screening Dental Screen Date: 01/04/24 Did you have a dental visit in the last 12 months?: Yes Did you have a dental problem in the last 6 months where you did not have access to dental care?: Yes Was dental information given to patient?: Patient has dentist HPI HPI Comments History of Present Illness Details 52 year old female with a past medical history htn, resolved eoth, esophageal stricture, thyroid nodules, depression presenting for follow up Psych: Anxiety & Depression: On effexor, propranolol. Was on wellbutrin for years. continues addiction support on suboxone & acamprosate CV: Previously on BP meds. Normotensive today GI: Reflux, gastritis well controlled on PPI. Has esophageal stricutre, gets dilation. Follow with [facility] Dr Bond. MSK: Low back pain, DDD, Seeing ortho. Upcoming visit. Joint pain, bilateral hands with swelling. Locking Endocrine: DXA with osteoporosis: referred for treatment given GI history. Heme/Onc Neck u/s with LN-indeterminate, stable. She had biopsy which was reassuring Colonoscopy 2018-Dr Bond. 10 year repeat Follows annually with gynecology. s/p partial hysterectomy Mammo 10/2022 ROS CONSTITUTIONAL: Denies weight loss, fever and chills. HEENT: Denies changes in vision and hearing. RESPIRATORY: Denies SOB and cough. CV: Denies palpitations and CP GI: Denies abdominal pain, nausea, vomiting and diarrhea. : Denies dysuria and urinary frequency. MSK: Denies new myalgia and joint pain. SKIN: Denies rash and pruritus. NEUROLOGICAL: Denies headache PSYCHIATRIC: Denies recent changes in mood. PHYSICAL EXAM: GENERAL: Alert and oriented x 3. NAD EYES: EOMI. Anicteric. HENT: Moist mucous membranes. No scleral icterus. No cervical lymphadenopathy. LUNGS: Clear to auscultation bilaterally. CARDIOVASCULAR: Regular rate and rhythm. No murmur. No JVD. ABDOMEN: Soft, non-tender +bs EXTREMITIES: No edema. Non-tender. SKIN: No rashes or lesions. Warm. NEUROLOGIC: No focal neurological deficits. CN II-XII grossly intact PSYCHIATRIC: Cooperative. Appropriate mood and affect [facility] Medical History Hernia Lipoma of right upper extremity Narcotic abuse ETOH abuse Shoulder pain Depression Surgical History History of partial hysterectomy Family History Father Asthma HTN (hypertension) Hypercholesteremia Cardiovascular disease Clotting disorder Maternal Grandmother Asthma HTN (hypertension) Hypercholesteremia Cardiovascular disease Paternal Grandfather Asthma Hypercholesteremia Leukemia Social History Housing: House Alcohol intake: current Alcohol intake frequency: 3 or more drinks per day Patient Tobacco Use Status: Former Tobacco user Cigarette Packs Per Day: 1 Years Smoked: 43 quit 07/2023 e-Cigarette/Vaping Use: Never Used Second Hand Smoke Exposure: No Substance Use Type: Marijuana service: No Current occupational status: unemployed Cognitive needs: No Hearing needs: No Vision needs: No Questionnaire PHQ-9 Over the last 2 weeks, how often have you been bothered by any of the following problems? 1. Little interest or pleasure in doing things: nearly every day 2. Feeling down, depressed, or hopeless: nearly every day 3. Trouble falling or staying asleep, or sleeping too much: several days 4. Feeling tired or having little energy: nearly every day 5. Poor appetite or overeating: more than half the days 6. Feeling bad about yourself - or that you are a failure or have let yourself or your family down: nearly every day 7. Trouble concentrating on things, such as reading the newspaper or watching television: nearly every day 8. Moving or speaking so slowly that other people could have noticed. Or the opposite - being so fidgety or restless that you have been moving around a lot more than usual: several days 9. Thoughts that you would be better off or of hurting yourself in some way: not at all Total score: 19 Depression Screening Interpretation: Positive Depression Screening Follow-up: Existing condition and In treatment Depression Screening Done: Yes Source: Developed by Drs. Chad Arteaga, Sofía Garvin, Dre Seymour and colleagues, with an educational ila from [employer]. Thrive Questionnaire Date Thrive assessed: 09/28/23 I am a: Patient What is your living situation today?: I have a steady place to live Within the past 12 months, did the food you bought not last and you didn't have the money to get more?: Never true Within the past 12 months, did you worry whether your food would run out before you got money to buy more?: Never true Do you have trouble paying for medicines?: No Do you have trouble getting transportation to medical appointments?: No Do you have trouble paying your heating and electricity bill?: No Do you have trouble taking care of your child, family member or friend?: No Do you have trouble with day-to-day activities such as bathing, preparing meals, shopping, managing finances, etc.?: No Are you currently unemployed and looking for a job?: No Are you interested in more education?: No Please select the resources that you would like help with: None THRIVE Score: 0 AUDIT C Alcohol Use Questionnaire (AUDIT-C) 1. How often do you have a drink containing alcohol?: Monthly or less 2. How many drinks containing alcohol do you have on a typical day when you are drinking?: 1 or 2 3. How often do you have six or more drinks on one occasion?: Never Total Score: 1 DAMIAN-7 AMB Questionnaire DAMIAN-7 Date DAMIAN - 7 assessed: 01/04/24 Feeling nervous, anxious, or on edge: 2 = More than half the days Not being able to stop or control worryin = Nearly every day Worrying too much about different things: 3 = Nearly every day Trouble relaxin = Nearly every day Being so restless that it is hard to sit still: 3 = Nearly every day Becoming easily annoyed or irritable: 2 = More than half the days Feeling afraid as if something awful might happen: 3 = Nearly every day Total DAMIAN-7 score (0-4 normal; 5-9 mild; 10-14 moderate; 15-21 severe): 19 Source: Developed by Drs. Chad Arteaga, Sofía Garvin, Dre Seymour and colleagues, with an educational ila from [employer]. DAMIAN-7 Assessment Billing DAMIAN-7 Assessment Tool: DAMIAN-7 Assessment 44617 Physical exam (Primary Care) Vital Signs: Last Vital Signs Pulse 79 01/04/24 09:35 BP 120/86 01/04/24 09:35 Pulse Ox 93 01/04/24 09:35 Oxygen Delivery Method Room Air 01/04/24 09:35 BMI result Body Mass Index 25.6 Tobacco/Smoking Status: Tobacco use Status Tobacco use date assessed 01/04/24 01/04/24 09:41 Patient Tobacco Use Status Former Tobacco user 01/04/24 09:41 e-Cigarette/Vaping Use Never Used 01/04/24 09:41 PHQ-9: PHQ-9 Score PHQ-9: Total score 19 01/04/24 09:48 Depression Screening Interpretation: Positive Depression Screening Follow-up: Existing condition and In treatment Thrive Assessment: Date of Thrive Assessment Date Thrive assessed 09/28/23 01/04/24 09:41 Assessment and Plan Assessment & Plan (1) Bilateral hand pain: Code(s): M79.641 - Pain in right hand; M79.642 - Pain in left hand Plan: xrays. diclofenac. referral to hand (2) Hair loss: Code(s): L65.9 - Nonscarring hair loss, unspecified Plan: refer dermatology (3) Major depressive disorder, recurrent, in partial remission: Comment: continue current medications. Declines referral. Follows at [facility] Code(s): F33.41 - Major depressive disorder, recurrent, in partial remission Orders: Orders XR hand LT min 3V Today M79.641 - Pain in right hand, M79.642 - Pain in left hand XR hand RT min 3V Today M79.641 - Pain in right hand, M79.642 - Pain in left hand Referrals Orthopedics Referral M79.641 - Pain in right hand, M79.642 - Pain in left hand Dermatology Referral L65.9 - Nonscarring hair loss, unspecified Medications: New meloxicam 15 mg PO DAILY 90 tabs 3RF diclofenac sodium 1% (Arthritis Pain (diclofenac)) apply to single elbow, wrist or hand; for hand includes palm/fingers/back of hand 2 grams topical QID 100 grams 1RF Coding Level of Care Code Est Pt Level 4 (84742) Diagnoses Bilateral hand pain M79.641; M79.642 Hair loss L65.9 Major depressive disorder, recurrent, in partial remission F33.41 Additional Codes DAMIAN-7 Assessment Billing - DAMIAN-7 Assessment Tool: DAMIAN-7 Assessment 64720 ([id number])
[2024-01-04 09:35] VITALS: BP 120/86; PULSE 79; O2SAT 93; BMI 25.6
== END 2024-01-04 10:05 | disposition home or self-care (01) ==
PROVIDERS: PCP Internal Medicine; Visit Provider Internal Medicine
DX: M79.641 Pain in right hand (principal); M79.642 Pain in left hand; L65.9 Nonscarring hair loss, unspecified; F33.41 Major depressive disorder, recurrent, in partial remission
CPT/HCPCS: 99214

== ENCOUNTER 2024-01-04 11:39 | Outpatient (REF) | payer OTHER, SELFPAY ==
--- NOTE | ~2024-01-04 | XR_ITS ---
EXAMINATION: XR HAND, RIGHT CLINICAL INFORMATION: Pain. COMPARISON: None available. TECHNIQUE: PA, lateral, and oblique views of the right hand. FINDINGS: There is bony demineralization. Bony alignment is normal. There is a neutral ulnar variance. There is mild peripheral osteophyte formation of the second through fifth distal interphalangeal joints. A small marginal erosion is seen at the medial aspect of the base of the fifth proximal phalanx. No fracture or dislocation is seen. The proximal and distal carpal rows are intact. There is no focal soft tissue swelling, gas or foreign body. XR/XR hand LT min 3V IMPRESSION: 1. There is arthritic change of the second through fifth distal interphalangeal joints. 2. A small marginal erosion is seen at the medial aspect of the base of the proximal phalanx, which can be seen in association with rheumatoid arthritis, gout or psoriasis. EXAMINATION: XR HAND, LEFT CLINICAL INFORMATION: Pain COMPARISON: Radiographs dated 04/07/2013. TECHNIQUE: PA, lateral, and oblique views of the left hand. FINDINGS: There is bony demineralization. Bony alignment is normal. There is a neutral ulnar variance. There is severe arthritic change of the second distal interphalangeal joint, with a central erosion. No fracture or dislocation is seen. The proximal and distal carpal rows are intact. No focal soft tissue swelling, gas or foreign body is seen. IMPRESSION: There is marked arthritic change of the second distal interphalangeal joint, with a central erosion. The findings suggest an erosive arthritis such as psoriasis, gout or rheumatoid arthritis. Electronically signed by: Jonathan Mendoza MD 02/02/2024 04:08 PM EDT
--- NOTE | ~2024-01-04 | XR_ITS ---
EXAMINATION: XR HAND, RIGHT CLINICAL INFORMATION: Pain. COMPARISON: None available. TECHNIQUE: PA, lateral, and oblique views of the right hand. FINDINGS: There is bony demineralization. Bony alignment is normal. There is a neutral ulnar variance. There is mild peripheral osteophyte formation of the second through fifth distal interphalangeal joints. A small marginal erosion is seen at the medial aspect of the base of the fifth proximal phalanx. No fracture or dislocation is seen. The proximal and distal carpal rows are intact. There is no focal soft tissue swelling, gas or foreign body. XR/XR hand RT min 3V IMPRESSION: 1. There is arthritic change of the second through fifth distal interphalangeal joints. 2. A small marginal erosion is seen at the medial aspect of the base of the proximal phalanx, which can be seen in association with rheumatoid arthritis, gout or psoriasis. EXAMINATION: XR HAND, LEFT CLINICAL INFORMATION: Pain COMPARISON: Radiographs dated 04/07/2013. TECHNIQUE: PA, lateral, and oblique views of the left hand. FINDINGS: There is bony demineralization. Bony alignment is normal. There is a neutral ulnar variance. There is severe arthritic change of the second distal interphalangeal joint, with a central erosion. No fracture or dislocation is seen. The proximal and distal carpal rows are intact. No focal soft tissue swelling, gas or foreign body is seen. IMPRESSION: There is marked arthritic change of the second distal interphalangeal joint, with a central erosion. The findings suggest an erosive arthritis such as psoriasis, gout or rheumatoid arthritis. Electronically signed by: Jonathan Mendoza MD 02/02/2024 04:08 PM EDT
== END 2024-01-04 11:40 | disposition home or self-care (01) ==
LOC: HO.XRAY 11:39
PROVIDERS: PCP Internal Medicine; Visit Provider Internal Medicine
DX: M79.641 Pain in right hand (principal); M79.642 Pain in left hand
CPT/HCPCS: 73130

== ENCOUNTER 2024-03-18 13:54 | Outpatient (AMB) | payer OTHER, SELFPAY ==
[2024-03-18 13:56] VITALS: BP 128/72; PULSE 71; O2SAT 97; BMI 25.6
--- NOTE | 2024-03-18 13:56 | A.OFFVIS_ITS ---
Vital Signs 03/18/24 13:56 Height 5 ft 5 in Weight 154 lb BMI 25.6 BP 128/72 Blood Pressure Location Lt brachial Position Sitting Pulse 71 Pulse Source Pulse Oximeter Pulse Oximetry (%) 97 Oxygen Delivery Method Room Air Intake Visit Reasons: arthritis/lm Intake Note: Patient presents today as a new patient, internally referred by her PCP for Erosive osteoarthritis. She states it's been about 2 years with lower back pain. She states she has been taking diclofenac, which is no help. she also states pain in her palms. Haed a cortisone shot in middle right hand. Allergies amoxicillin [From Augmentin] Allergy (Verified 03/18/24 14:03) Hives clavulanic acid [From Augmentin] Allergy (Verified 03/18/24 14:03) Hives Medication List - Last Reconciled 03/18/24 by Any Diaz MD acamprosate 666 mg (2 x 333 mg) PO TID diclofenac sodium 1% (Arthritis Pain (diclofenac)) 2 grams topical QID hydroxyzine HCl 50 mg PO QID PRN 90 days meloxicam 15 mg PO DAILY nicotine apply 1-21 mg NICOTINE PATCH daily for 28 days; follow with 1-14 mg PATCH daily for 14 days, then 1-7mg PATCH daily for 14 days transdermal omeprazole 1 cap PO DAILY ondansetron HCl 4 mg PO Q8H PRN pramipexole ER 1.5 mg PO DAILY trazodone 100 mg (2 x 50 mg) PO BEDTIME 90 days HPI Comments Details: Patient is a 53-year-old female current everyday smoker currently attempting to quit with nicotine patches, osteoporosis on Reclast infusion who presents for evaluation of hand pain. 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 She has been doing this for the past 18-20 years. Initially she started I am going to be seen with her dad and then has continued the business since he 9 years ago. She has been noticing that she has been having difficulty doing fine movements with her hands over the past year and has also noted locking of her fingers, needing to open them manually. Her orthopedic surgeon's office and was given a steroid injection. She states this helped for about a week but then symptoms returned. Nail she also notes pain in her lower back that has been worsening over the past several months. Inhibiting her ability garden. She denies prolonged morning stiffness, only has about 10-15 minutes. Has a strong family history of osteoarthritis as well as osteoporosis. Of note she had a scan past which showed osteoporosis and she is currently on IV Reclast infusions. 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) use of non-steroidal anti-inflammatories (nsaid) Osteoporosis Low back pain Hernia Lipoma of right upper extremity Narcotic abuse ETOH abuse Shoulder pain Depression Surgical History History of partial hysterectomy Family History Father Asthma HTN (hypertension) Hypercholesteremia Cardiovascular disease Clotting disorder Maternal Grandmother Asthma HTN (hypertension) Hypercholesteremia Cardiovascular disease Paternal Grandfather Asthma Hypercholesteremia Leukemia Social History Housing: House Alcohol intake: current Alcohol intake frequency: 3 or more drinks per day Patient Tobacco Use Status: Former Tobacco user Cigarette Packs Per Day: 1 Years Smoked: 43 quit 07/2023 e-Cigarette/Vaping Use: Never Used Second Hand Smoke Exposure: No Substance Use Type: Marijuana service: No Current occupational status: unemployed Cognitive needs: No Hearing needs: No Vision needs: No Review of Systems Const Details: Review of Systems Constitutional: Denies fever, chills, weight loss ENT: Denies vision changes, eye pain or eye redness, dental caries, dry mouth GI: Denies nausea, vomiting, diarrhea, abdominal pain, change in BM Pulm: Denies SOB, BASS, hemoptysis, wheezing Cards: Denies chest pain, palpitations Skin: Denies Raynaud's, rash, nail changes, photosensitivity, CONTRACT ADMIN: Denies headaches, weakness, paresthesias, recurrent falls MSK: as per HPI All other systems reviewed and are unremarkable except noted above Physical Exam Vital Signs: Last Vital Signs Pulse 71 03/18/24 13:56 BP 128/72 03/18/24 13:56 Pulse Ox 97 03/18/24 13:56 Oxygen Delivery Method Room Air 03/18/24 13:56 BMI result Body Mass Index 25.6 Physical Examination Patient well appearing and in no apparent painful distress Able to rise from chair without support. ?Gait normal. Constitutional Mucous membranes pink and moist patient alert and cooperative HEENT Conjunctiva and sclera clear. ?Pupils equal round and reactive to light. ?No lymphadenopathy. ?Normal dentition. Respiratory System Normal respiratory effort and able to speak in complete sentences. ?Clear to auscultation bilaterally. ?No crackles, rales, rhonchi, wheezes heard. Cardiac System Regular rate and rhythm. ?S1 and S2 heard no murmurs. ?Radial pulses intact bilaterally MSK Hands: Patient mild swelling and tenderness to the right 2nd PIP. Also has scattered Heberden's nodes. Negative CMC grind test bilaterally. Wrists: Bilateral wrists with range of motion. No tenderness to palpation. No synovial hypertrophy. Elbows: Elbows with full range of motion. No tenderness to palpation no evidence lateral or medial epicondylitis. No swelling Shoulders: Bilateral shoulders with full range of motion for passive and active. No point tenderness. Knees: Bilateral knees with crepitations. However no swelling or tenderness to palpation. Results Reviewed Results Reviewed: XR Hands 12/2023 Gull wing erosion noted to the 2nd DIPs on the right. Central erosion noted. Peripheral osteophytes. Joint space narrowing involving PIPs and DIPs (my read) Assessment & Plan Assessment & Plan (1) Erosive (osteo)arthritis: Code(s): M15.4 - Erosive (osteo)arthritis Category: Medical Plan: #Erosive OA Patient's x-rays are classic for erosive osteoarthritis. Unfortunately there is left treatment options for this. Recommend hand OT therapy as well as hand physical therapy. Also encouraged her to continue using diclofenac gel up to 4 times per day. Changing meloxicam to Celebrex 100 mg twice a day. We will do due diligence and check inflammatory markers as well as RF and CCP. (2) Low back pain: Code(s): M54.50 - Low back pain, unspecified Category: Medical Qualifiers: Chronicity: chronic Back pain laterality: midline Sciatica presence: without sciatica Qualified Code(s): M54.50 - Low back pain, unspecified; G89.29 - Other chronic pain Plan: #Low back pain Low back pain. Likely OA in his spine. We will check x-rays. Again recommend physical therapy. (3) Osteoporosis: Code(s): M81.0 - Age-related osteoporosis without current pathological fracture Category: Medical Qualifiers: Osteoporosis type: age-related Presence of current pathological fracture: without current pathological fracture Qualified Code(s): M81.0 - Age- related osteoporosis without current pathological fracture Plan: #Osteoporosis It is unusual for this young 53-year-old female to have osteoporosis but she does have a significant 5 history and has a history of smoking (she has tried quit currently on nicotine patches) IV Reclast infusions. We will order DEXA scan. 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 of non-steroidal anti-inflammatories (NSAID) Category: Medical Plan: #Long-term Use of NSAIDs Discussed with patient the benefits and risk of NSAIDs for managing the rheumatic condition Benefits include: - Reduced the pain, improved mobility, and increased participation in activities Risks include: - GI upset, potential also worsening or formation (especially in patients > 65 years old) Recommended using proton pump inhibitors (PPIs) for the duration of NSAID use to reduce the risk of gastric ulcers Plan I spent 30 minutes reviewing the record and labs, seeing the patient, discussing the treatment plan and documenting in the medical record ? Orders: Orders OT Evaluation and Treatment Today M15.4 - Erosive (osteo)arthritis, M54.50 - Low back pain, unspecified, M81.0 - Age-related osteoporosis without current pathological fracture Comprehensive Met. Panel Today M15.4 - Erosive (osteo)arthritis, M54.50 - Low back pain, unspecified, M81.0 - Age-related osteoporosis without current pathological fracture Cyclic Citrullinated Peptide Today M15.4 - Erosive (osteo)arthritis, M54.50 - Low back pain, unspecified, M81.0 - Age-related osteoporosis without current pathological fracture XR lumbar spine 4V min Today M15.4 - Erosive (osteo)arthritis, M54.50 - Low back pain, unspecified HLA B27 Today M15.4 - Erosive (osteo)arthritis PT Evaluation and Treatment Today M15.4 - Erosive (osteo)arthritis, M54.50 - Low back pain, unspecified, M81.0 - Age-related osteoporosis without current pathological fracture XR DEXA axial skeleton Today M15.4 - Erosive (osteo)arthritis, M54.50 - Low back pain, unspecified, M81.0 - Age-related osteoporosis without current pathological fracture Erythrocyte Sedimentation Rate Today M15.4 - Erosive (osteo)arthritis, M54.50 - Low back pain, unspecified, M81.0 - Age-related osteoporosis without current pathological fracture Complete Blood Count Auto Diff Today M15.4 - Erosive (osteo)arthritis, M54.50 - Low back pain, unspecified, M81.0 - Age-related osteoporosis without current pathological fracture C Reactive Protein Today M15.4 - Erosive (osteo)arthritis, M54.50 - Low back pain, unspecified, M81.0 - Age-related osteoporosis without current pathological fracture Rheumatoid Factor Today M15.4 - Erosive (osteo)arthritis, M54.50 - Low back pain, unspecified, M81.0 - Age-related osteoporosis without current pathological fracture Medications: New celecoxib (Celebrex) 100 mg PO BID 180 caps 1RF 90 days M15.4 - Erosive (osteo)arthritis, M54.50 - Low back pain, unspecified Discontinued meloxicam Discontinued Reason: Doctor's Order 15 mg PO DAILY 90 tabs 3RF Coding Level of Care Code New Pt Level 3 (53535) Diagnoses Erosive (osteo)arthritis M15.4 Chronic midline low back pain without sciatica M54.50; G89.29 Chronicity: chronic Back pain laterality: midline Sciatica presence: without sciatica Age-related osteoporosis without current pathological fracture M81.0 Osteoporosis type: age-related Presence of current pathological fracture: without current pathological fracture shelter (current) use of non-steroidal anti-inflammatories (nsaid) Z79.1
== END 2024-03-18 14:37 | disposition home or self-care (01) ==
PROVIDERS: PCP Internal Medicine; Visit Provider Student in an Organized Health Care Education/Training Program
DX: M15.4 Erosive (osteo)arthritis (principal); M54.50 Low back pain, unspecified; G89.29 Other chronic pain; M81.0 Age-related osteoporosis without current pathological fracture; Z79.1 Long term (current) use of non-steroidal anti-inflammatories (NSAID)
CPT/HCPCS: 99203

== ENCOUNTER → 2024-03-18 13:54 | Outpatient (BNVA) | payer OTHER, SELFPAY | PROVIDERS: PCP Internal Medicine; Visit Provider Student in an Organized Health Care Education/Training Program | DX: M15.4 Erosive (osteo)arthritis (principal); M54.50 Low back pain, unspecified; M81.0 Age-related osteoporosis without current pathological fracture; G89.29 Other chronic pain; Z79.1 Long term (current) use of non-steroidal anti-inflammatories (NSAID) | CPT/HCPCS: 99202 ==

== ENCOUNTER 2024-04-18 10:33 | Outpatient (AMB) | payer OTHER, SELFPAY ==
--- NOTE | 2024-04-18 11:02 | A.OFFPC_ITS ---
Vital Signs 04/18/24 11:06 Height 5 ft 5 in Weight 157 lb 4 oz BMI 26.2 BP 106/70 Blood Pressure Location Rt brachial Position Sitting Pulse 70 Pulse Source Pulse Oximeter Pulse Oximetry (%) 98 Oxygen Delivery Method Room Air Intake Visit Reasons: 3 MON F/UP Intake Note: Three month follow up. Toe pain right foot Hat Sprayer Required: No Allergies amoxicillin [From Augmentin] Allergy (Verified 04/29/24 09:08) Hives clavulanic acid [From Augmentin] Allergy (Verified 04/29/24 09:08) Hives Tobacco use date assessed: 01/04/24 Dental Screening Dental Screen Date: 01/04/24 HPI HPI Comments History of Present Illness Details 53 year old female with a past medical h istory htn, resolved eoth, esophageal stricture, thyroid nodules, depression presenting for follow up Psych: Anxiety & Depression: On effexor, propranolol. Was on wellbutrin for years. continues addiction support on suboxone & acamprosate CV: Previously on BP meds, staying normotensive off GI: Reflux, gastritis well controlled on PPI. Has esophageal stricutre, gets dilation. Follow with [facility] Dr Bond. MSK: Low back pain, DDD, Seeing ortho. Saw rheumatology. Joint pain, bilateral hands with swelling. Locking. On celebrex Endocrine: DXA with osteoporosis: referred for treatment given GI history. Heme/Onc Neck u/s with LN-indeterminate, stable. She had biopsy which was reassuring Colonoscopy 2018-Dr Bond. 10 year repeat Follows annually with gynecology. s/p partial hysterectomy Mammo 10/2022 ROS see HPI PHYSICAL EXAM: GENERAL: Alert and oriented x 3. NAD EYES: EOMI. Anicteric. HENT: Moist mucous membranes. No scleral icterus. No cervical lymphadenopathy. LUNGS: Clear to auscultation bilaterally. CARDIOVASCULAR: Regular rate and rhythm. No murmur. No JVD. ABDOMEN: Soft, non-tender +bs EXTREMITIES: No edema. Non-tender. SKIN: No rashes or lesions. Warm. NEUROLOGIC: No focal neurological deficits. CN II-XII grossly intact PSYCHIATRIC: Cooperative. Appropriate mood and affect [facility] Medical History (Updated 05/02/24 @ 01:15 by Nereyda Sheppard MD) care home (current) use of non-steroidal anti-inflammatories (nsaid) Osteoporosis Low back pain Hernia Lipoma of right upper extremity Narcotic abuse ETOH abuse Shoulder pain Depression Surgical History (Updated 04/29/24 @ 11:37 by TROY Arnold) H/O hernia repair S/P excision of lipoma History of carpal tunnel release of both wrists History of partial hysterectomy Family History Father Asthma HTN (hypertension) Hypercholesteremia Cardiovascular disease Clotting disorder Maternal Grandmother Asthma HTN (hypertension) Hypercholesteremia Cardiovascular disease Paternal Grandfather Asthma Hypercholesteremia Leukemia Social History Housing: House Alcohol intake: former Patient Tobacco Use Status: Former Tobacco user Cigarette Packs Per Day: 1 Years Smoked: 43 quit 07/2023 e-Cigarette/Vaping Use: Never Used Second Hand Smoke Exposure: No Substance Use Type: Marijuana service: No Current occupational status: unemployed Cognitive needs: No Hearing needs: No Vision needs: No Questionnaire Thrive Questionnaire Date Thrive assessed: 04/15/24 I am a: Patient What is your living situation today?: I have a steady place to live THRIVE Score: 0 DAMIAN-7 AMB Questionnaire DAMIAN-7 Date DAMIAN - 7 assessed: 01/04/24 Source: Developed by Drs. Chad Arteaga, Sofía Garvin, Dre Seymour and colleagues, with an educational ila from [employer]. Physical exam (Primary Care) Vital Signs: Last Vital Signs Pulse 70 04/18/24 11:06 BP 106/70 04/18/24 11:06 Pulse Ox 98 04/18/24 11:06 Oxygen Delivery Method Room Air 04/18/24 11:06 BMI result Body Mass Index 26.2 Tobacco/Smoking Status: Tobacco use Status Tobacco use date assessed 01/04/24 04/18/24 11:02 Patient Tobacco Use Status Former Tobacco user 04/18/24 11:06 e-Cigarette/Vaping Use Never Used 04/18/24 11:06 Thrive Assessment: Date of Thrive Assessment Date Thrive assessed 04/15/24 04/18/24 11:02 Coding Level of Care Code Est Pt Level 4 (57143) Diagnoses Major depressive disorder, recurrent, in partial remission F33.41 Cervical spondylolysis M43.02 Erosive (osteo)arthritis M15.4 Assessment & Plan Assessment & Plan (1) Major depressive disorder, recurrent, in partial remission: Code(s): F33.41 - Major depressive disorder, recurrent, in partial remission Category: Medical Plan: continue current medications. Declines referral. Follows at [facility] (2) Cervical spondylolysis: Comment: chronic neck and low back pain. Code(s): M43.02 - Spondylolysis, cervical region Category: Medical Plan: Referral to pain management continue celebrex (3) Erosive (osteo)arthritis: Code(s): M15.4 - Erosive (osteo)arthritis Category: Medical Plan: Had consult with rheumatology and will follow up. They also are discussing osteoporosis Orders: Referrals Pain Management Referral M43.02 - Spondylolysis, cervical region Podiatry Referral L60.0 - Ingrowing nail Medications: New Nicoderm CQ (nicotine) 1 patch transdermal DAILY 28 ea 3RF NS F17.200 - Nicotine dependence, unspecified, uncomplicated Discontinued nicotine Discontinued Reason: Doctor's Order apply 1-21 mg NICOTINE PATCH daily for 28 days; follow with 1-14 mg PATCH daily for 14 days, then 1-7mg PATCH daily for 14 days transdermal 56 patches 0RF naltrexone Discontinued Reason: Doctor's Order 50 mg PO DAILY 90 tabs 3RF
[2024-04-18 11:06] VITALS: BP 106/70; PULSE 70; O2SAT 98; BMI 26.2
== END 2024-04-18 11:38 | disposition home or self-care (01) ==
PROVIDERS: PCP Internal Medicine; Visit Provider Internal Medicine
DX: F33.41 Major depressive disorder, recurrent, in partial remission (principal); M43.02 Spondylolysis, cervical region; M15.4 Erosive (osteo)arthritis

== ENCOUNTER → 2024-04-18 10:33 | Outpatient (BNVA) | payer OTHER, SELFPAY | PROVIDERS: PCP Internal Medicine; Visit Provider Internal Medicine | DX: F33.41 Major depressive disorder, recurrent, in partial remission (principal); M43.02 Spondylolysis, cervical region; M15.4 Erosive (osteo)arthritis; L60.0 Ingrowing nail; K21.9 Gastro-esophageal reflux disease without esophagitis; K29.70 Gastritis, unspecified, without bleeding; M81.0 Age-related osteoporosis without current pathological fracture; Z87.891 Personal history of nicotine dependence | CPT/HCPCS: 99212 ==

== ENCOUNTER 2024-04-20 11:01 | Outpatient (REF) | payer OTHER, SELFPAY ==
--- NOTE | ~2024-04-20 | MM_ITS ---
EXAMINATION: BONE DENSITOMETRY CLINICAL INDICATION: Low back pain. COMPARISON: This is the patient's baseline examination. TECHNIQUE: Using a [employer] DXA System (software version: 13.1) manufactured by [employer], dual-energy x-ray absorptiometry was performed of the lumbar spine and left hip. The images are of good technical quality. Summary results are attached. FINDINGS: LEFT FEMUR, NECK: BMD 0.886 g/cm2, Z-score 0.0, T-score -1.1, osteopenia. LEFT FEMUR, TOTAL: BMD 0.905 g/cm2, Z-score -0.1, T-score -0.8, normal. AP SPINE L1-L4: BMD 0.903 g/cm2, Z-score -1.4, T-score -2.3, osteopenia. IDENTIFIED RISK FACTORS: Early menopause, history of fracture (adult), hysterectomy, osteoporosis, rheumatoid arthritis, tobacco use (current smoker), secondary osteoporosis. HISTORY OF FRACTURE: Forearm, other. MEDICATIONS: Calcium, vitamin D. MM/XR DEXA axial skeleton IMPRESSION: 1. DIAGNOSIS: Osteopenia based on the lowest T-score value of -2.3 in the lumbar spine applying World Health Organization criteria. 2. 10-YEAR FRACTURE RISK PREDICTION, FRAX: Major osteoporotic fracture (clinical spine, forearm, hip or shoulder) 13.3%. Hip fracture 1.6%. 3. Treatment Recommendations: NOF guidelines recommend consideration for treatment in postmenopausal women and men age 50 and older presenting with the following: -A hip or vertebral (clinical or morphometric) fracture. -T-score less than or equal to -2.5 at the femoral neck or spine after appropriate evaluation to exclude secondary causes. -Low bone mass at the hip or spine and a 10-year fracture probability by FRAX of greater than or equal to 3% for hip fracture or greater than or equal to 20% for major osteoporotic fracture based on the [place] adapted WHO algorithm. 4. Other Recommendations: All treatment decisions require clinical judgment and consideration of individual patient factors, including patient preferences, comorbidities, previous drug use, risk factors not captured in the FRAX model (e.g. frailty, falls, vitamin D deficiency, increased bone turnover, interval significant decline in bone density) and possible under or overestimation of fracture risk by FRAX. Additional medical evaluation for secondary cause of low bone mineral density may be appropriate. FUTURE SCAN RECOMMENDATION: People with diagnosed cases of osteoporosis or at high risk for fracture should have regular bone mineral density tests. For patients eligible for Medicare, routine testing is allowed once every 2 years. The testing frequency can be increased to one year for patients who have rapidly progressing disease, those who are receiving or discontinuing medical therapy to restore bone mass, or have additional risk factors. Electronically signed by: Adeline Shah MD 04/20/2024 11:55 AM JASPAL HOPKINS
== END 2024-04-20 11:02 | disposition home or self-care (01) ==
LOC: HO.MAMMO 11:01
PROVIDERS: PCP Internal Medicine; Visit Provider Student in an Organized Health Care Education/Training Program
DX: M81.0 Age-related osteoporosis without current pathological fracture (principal); M54.50 Low back pain, unspecified; M15.4 Erosive (osteo)arthritis
CPT/HCPCS: 77080

== ENCOUNTER 2024-04-29 09:03 | Outpatient (REF) | payer OTHER, SELFPAY ==
[2024-04-29 10:32] LABS: MANUAL DIFF FLAG NO
[2024-04-29 11:28] LABS: Basophils Percent Auto 0.4 % (0-2); Eosinophils Absolute Auto 0.1 X10*3/uL (0.0-0.4); Hematocrit 41.6 % (37.0-47.0); Hemoglobin 14.2 g/dl (12.0-16.0); Imm Gran Abs Auto 0.02 X10*3/uL (0.00-0.03); Imm Gran Pct Auto 0.3 % (0.0-0.4); Lymphocytes Absolute Auto 1.7 X10*3/uL (1.2-4.9); Lymphocytes Percent Auto 25.1 % (20-40); Mean Corpuscular HGB Conc 34.1 g/dl (31.0-35.0); Mean Corpuscular Volume 87.9 fL (80.0-98.0); Mean Platelet Volume 10.2 fL (9.4-12.3); Monocytes Absolute Auto 0.4 X10*3/uL (0.1-1.2); Monocytes Percent Auto 5.9 % (2-11); Neutrophils Absolute Auto 4.7 x10*3/uL (2.0-8.3); Neutrophils Percent Auto 67.3 % (45-73); Platelet Count 191 X10*3/uL (160-400); Red Blood Count 4.73 X10*6/uL (4.20-5.50); Red Cell Distribution Width 12.2 % (11.0-16.0); White Blood Count 6.9 X10*3/uL (4.8-10.8)
[2024-04-29 11:54] LABS: Rheumatoid Factor < 13.0 IU/mL (<15.0)
[2024-04-29 11:57] LABS: Alanine Aminotransferase 28 U/L (0-31); Albumin Level 4.3 g/dL (3.5-5.0); Alkaline Phosphatase 51 U/L (39-117); Anion Gap 11 (12-20); Aspartate Amino Transferase 12 U/L (5-31); Bilirubin Total 0.4 mg/dL (0.0-1.0); Blood Urea Nitrogen 17 mg/dL (9-16); C Reactive Protein < 0.10 mg/dL (< or = 0.50); Calcium 9.8 mg/dL (8.4-10.2); Carbon Dioxide 26 mmol/L (22-29); Chloride 109 mmol/L (96-108); Estimated Glomerular Filt Rate > 60; Glucose Random 97 mg/dL (60-115); Potassium 4.5 mmol/L (3.3-5.1); Sodium 141 mmol/L (135-145); Total Protein 6.8 g/dL (6.5-8.0)
[2024-04-29 12:11] LABS: Erythrocyte Sedimentation Rate 2 MM/HR (0-20)
[2024-05-02 20:18] LABS: Cyclic Citrullinated Peptide <16 UNITS
[2024-05-03 23:55] LABS: HLA B27 Negative (Negative)
== END 2024-04-29 09:04 | disposition home or self-care (01) ==
LOC: HO.LAB 09:03
PROVIDERS: Absent Provider Student in an Organized Health Care Education/Training Program; PCP Internal Medicine; Referring Provider Internal Medicine; Visit Provider Nurse Practitioner Family
DX: G89.29 Other chronic pain (principal); M15.4 Erosive (osteo)arthritis; M54.50 Low back pain, unspecified; M81.0 Age-related osteoporosis without current pathological fracture; M47.817 Spondylosis without myelopathy or radiculopathy, lumbosacral region; M85.80 Other specified disorders of bone density and structure, unspecified site; R10.31 Right lower quadrant pain
CPT/HCPCS: 36415; 72110; 80053; 85025; 85652; 86140; 86200; 86431; 86812; 99202

== ENCOUNTER 2024-04-29 09:03 | Outpatient (AMB) | payer OTHER, SELFPAY ==
--- NOTE | 2024-04-29 09:04 | A.OFFVIS_ITS ---
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 She was referred to our office by PCP for neck pain. Patient reports she has no neck pain. Reports axial low back pain that spreads across her waist but does not radiate into her lower extremities. Denies any recent trauma, injury or falls. She follows at [facility] in [place] for arthritis treatments and receives IV infusion for bone strengthening. Reports history of multiple therapeutic injections, including trigger finger injections at [facility] and has pending [facility] Orthopedic referral for hand pain. She wears left hand brace today and forgot right hand brace at home. Denies previous spine surgery or injections. She is hesitant towards interventional treatments at this time. She is willing to pursue formal PT and home exercise program. Pain affects her daily activities and functioning, mobility, mood, sleep and social interactions. Denies any fever or chills, weakness, bladder or bowel dysfunction or saddle anesthesia. Patient also reports chronic RLQ pain for over 8 years and has been completed abdominal and pelvis US and CT scan. She requests General Surgery evaluation for this. 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 (nsaid) Osteoporosis Low back pain Hernia Lipoma of right upper extremity Narcotic abuse ETOH abuse Shoulder pain Depression Surgical History (Updated 04/29/24 @ 11:37 by TROY Arnold) H/O hernia repair S/P excision of lipoma History of carpal tunnel release of both wrists History of partial hysterectomy Family History Father Asthma HTN (hypertension) Hypercholesteremia Cardiovascular disease Clotting disorder Maternal Grandmother Asthma HTN (hypertension) Hypercholesteremia Cardiovascular disease Paternal Grandfather Asthma Hypercholesteremia Leukemia Social History Housing: House Alcohol intake: former Patient Tobacco Use Status: Former Tobacco user Cigarette Packs Per Day: 1 Years Smoked: 43 quit 07/2023 e-Cigarette/Vaping Use: Never Used Second Hand Smoke Exposure: No Substance Use Type: Marijuana service: No Current occupational status: unemployed Cognitive needs: No Hearing needs: No Vision needs: No Review of Systems Const All systems reviewed & are unremarkable except as noted in HPI and below Physical Exam Vital Signs: Last Vital Signs Pulse 89 04/29/24 09:08 BP 114/80 04/29/24 09:08 Pulse Ox 98 04/29/24 09:08 Oxygen Delivery Method Room Air 04/29/24 09:08 BMI result Body Mass Index 26.0 General: Appears afebrile. Alert and oriented. Mood and affect appropriate. Follows and participates in conversation appropriately. Respiratory effort is unlabored. No cough. Able to transition from sit to stand unassisted. Ambulates with bilaterally normal heel strike and toe off. General: Yes no CVA tenderness Back/Spine/Pelvis Other: Patient is able to walk and stand on heels and tip toes with no difficulties demonstrating good motor tone. Normal gait, no limping. Can flex forward to 70- 75 degrees and extend to 10-15 degrees before experiencing lumbar pain. Demonstrates 5/5 strength of quadriceps bilaterally as well as flexion/dorsiflexion of bilateral feet against resistance. 2+ pedal pulses bilaterally. Straight leg rise with dorsiflexion negative bilaterally. +1 patellar and achilles reflexes bilaterally. Facet loading test positive bilaterally. Lissa sign, Henry?s, Gaenslen and Stinchfield tests are negative bilaterally. No groin pain with I/E hip rotations. Valsalva maneuver negative. Back: no CVA tenderness Cervical Spine: cervical ROM normal, No Lhermitte's sign positive, No cervical muscular tenderness, No Cervical spine tenderness and No step off deformity Thoracic/Lumbar Spine: thoracic and lumbar spine normal to inspection, Thoracic/lumbar spine scar(s) (right side mid paraspinal area), Lasegue's sign negative, straight leg raise negative bilaterally, pain with thoraco-lumbar ROM, paraspinal muscle tenderness on the right greater than left, thoraco-lumbar ROM limited, thoraco-lumbar spasm on the right in the lower lumbar, No thoracic spinal tenderness and No lumbar spinal tenderness Pelvis: no buttock tenderness Sacroiliac joints: bilaterally nontender Extrem General: Yes capillary refill normal, Yes no clubbing, cyanosis or edema and Yes no calf tenderness Results Reviewed Results Reviewed: No imaging results are available for review. Assessment & Plan Assessment & Plan (1) Right lower quadrant abdominal pain: Code(s): R10.31 - Right lower quadrant pain Category: Medical Plan: General surgery referral for evaluation of chronic RLQ pain per patient's request. (2) Low back pain: Code(s): M54.50 - Low back pain, unspecified Category: Medical Qualifiers: Chronicity: chronic Back pain laterality: midline Sciatica presence: without sciatica Qualified Code(s): M54.50 - Low back pain, unspecified; G89.29 - Other chronic pain (3) Lumbosacral spondylosis: Code(s): M47.817 - Spondylosis without myelopathy or radiculopathy, lumbosacral region Category: Medical (4) Osteopenia: Code(s): M85.80 - Other specified disorders of bone density and structure, unspecified site Category: Medical (5) Low back pain: Code(s): M54.50 - Low back pain, unspecified Category: Medical Qualifiers: Chronicity: chronic Back pain laterality: midline Sciatica presence: without sciatica Qualified Code(s): M54.50 - Low back pain, unspecified; G89.29 - Other chronic pain (6) Lumbosacral spondylosis: Code(s): M47.817 - Spondylosis without myelopathy or radiculopathy, lumbosacral region Category: Medical Plan Patient presents today with acute on chronic axial low back pain with mild discogenic pain components. To this point she has not tried any dedicated conservative treatment in the forms of physical therapy, chiropractic, massage or injections. Recommend formal physical therapy for chronic low back pain. Script provided today at location closer to patient's home per patient's request. Lumbar spine imaging to assess degree of degenerative changes, any subluxation, listhesis, compression fractures or pars defects. Discussed interventional treatments for axial low back pain, including diagnostic versus therapeutic injections, Sprint PNS trial in RFA procedures. Patient has h/o osteoporosis in lumbar spine and now with osteopenia per recent bone scan. She reports multiple cortisone injections in the past. We will focus on stimulative or ablative procedures if no positive response to PT and home exercise program. All questions and concerns have been answered and patient agreed with the treatment plan. X-ray results will be called to patient via telephone. Script provided for lidocaine patches today. Follow-up 6-8 weeks after PT and sooner as needed. Orders: Orders PT Evaluation and Treatment Today G89.29 - Other chronic pain, M47.817 - Spondylosis without myelopathy or radiculopathy, lumbosacral region, M54.50 - Low back pain, unspecified, M85.80 - Other specified disorders of bone density and structure, unspecified site XR lumbar spine 4V min Today G89.29 - Other chronic pain, M47.817 - Spondylosis without myelopathy or radiculopathy, lumbosacral region, M54.50 - Low back pain, unspecified Referrals General Surgery Referral R10.31 - Right lower quadrant pain Medications: New lidocaine 5% leave on most painful area for up to 12 hrs topical 30 days 30 ea 1RF pain G89.29 - Other chronic pain, M47.817 - Spondylosis without myelopathy or radiculopathy, lumbosacral region, M54.50 - Low back pain, unspecified lidocaine 5% leave on most painful area for up to 12 hrs topical 30 days 30 ea 1RF pain G89.29 - Other chronic pain, M47.817 - Spondylosis without myelopathy or radiculopathy, lumbosacral region, M54.50 - Low back pain, unspecified Coding Level of Care Code New Pt Level 4 (29843) Complex EM visit Add On G2211 Diagnoses Right lower quadrant abdominal pain R10.31 Chronic midline low back pain without sciatica M54.50; G89.29 Chronicity: chronic Back pain laterality: midline Sciatica presence: without sciatica Lumbosacral spondylosis M47.817 Osteopenia M85.80
[2024-04-29 09:08] VITALS: BP 114/80; PULSE 89; O2SAT 98; BMI 26.0
== END 2024-04-29 09:45 | disposition home or self-care (01) ==
PROVIDERS: PCP Internal Medicine; Referring Provider Internal Medicine; Visit Provider Nurse Practitioner Family
DX: R10.31 Right lower quadrant pain (principal); M54.50 Low back pain, unspecified; G89.29 Other chronic pain; M47.817 Spondylosis without myelopathy or radiculopathy, lumbosacral region; M85.80 Other specified disorders of bone density and structure, unspecified site
CPT/HCPCS: 99204

== ENCOUNTER 2024-05-30 10:50 | Outpatient (AMB) | payer OTHER, SELFPAY ==
--- NOTE | 2024-05-30 10:51 | A.OFFVIS_ITS ---
Vital Signs 05/30/24 10:59 Height 5 ft 5 in Weight 157 lb BMI 26.1 BP 132/87 Blood Pressure Location Rt brachial Position Sitting Pulse 80 Intake Visit Reasons: Rt lower quadrant pain Intake Note: Patient referred by pain management for RLQ pain. Reports pain started 15yrs. Patient c/o: States has had many CT scans. Feels lump on RLQ about 1yr ago but CT scan did not show anything. 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 She otherwise tolerating a diet. She is regular bowel habits. She is had a workup at an outside facility including a CT scan of the abdomen and right upper quadrant ultrasound which were both negative. These were performed at normal in 11/14. Patient also has had a colonoscopy within last 5 years which he says is also within normal limits. Chart was reviewed and patient evaluated. She had a right posterior flank hernia repaired in at [facility] by Dr. 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 (nsaid) Osteoporosis Low back pain Hernia Lipoma of right upper extremity Narcotic abuse ETOH abuse Shoulder pain Depression Surgical History H/O hernia repair S/P excision of lipoma History of carpal tunnel release of both wrists History of partial hysterectomy Family History Father Asthma HTN (hypertension) Hypercholesteremia Cardiovascular disease Clotting disorder Maternal Grandmother Asthma HTN (hypertension) Hypercholesteremia Cardiovascular disease Paternal Grandfather Asthma Hypercholesteremia Leukemia Social History Housing: House Alcohol intake: former Patient Tobacco Use Status: Former Tobacco user Cigarette Packs Per Day: 1 Years Smoked: 43 quit 07/2023 e-Cigarette/Vaping Use: Never Used Second Hand Smoke Exposure: No Substance Use Type: Marijuana service: No Current occupational status: unemployed Cognitive needs: No Hearing needs: No Vision needs: No Physical Exam Vital Signs: Last Vital Signs Pulse 80 05/30/24 10:59 BP 132/87 05/30/24 10:59 BMI result Body Mass Index 26.1 GI Other: Patient was examined both supine and standing with Valsalva. Moderately corpulent abdomen. No groin pathology demonstrated. With Valsalva, no hernias were demonstrated of the abdominal wall. Patient has point tenderness over abdominal wall were symptoms are but no obvious pathology was demonstrated. Assessment & Plan Assessment & Plan (1) Abdominal wall pain: Code(s): R10.9 - Unspecified abdominal pain Category: Surgical Plan: CT scan ultrasound from 2022 were reviewed. Because of the unclear nature of the patient's symptoms, current plan is to repeat a focused ultrasound of her area of concern indirect further interventions and studies based on these results. This was explained to the patient. All questions answered. She will see me after the ultrasound. Orders: Orders US abdomen limited Today R10.9 - Unspecified abdominal pain Coding Level of Care Code New Pt Level 4 (89591) Diagnoses Abdominal wall pain R10.9
[2024-05-30 10:59] VITALS: BP 132/87; PULSE 80; BMI 26.1
== END 2024-05-30 11:21 | disposition home or self-care (01) ==
PROVIDERS: PCP Internal Medicine; Visit Provider Surgery
DX: R10.9 Unspecified abdominal pain (principal)
CPT/HCPCS: 99204

== ENCOUNTER → 2024-05-30 10:50 | Outpatient (BNVA) | payer OTHER, SELFPAY | PROVIDERS: PCP Internal Medicine; Visit Provider Surgery | DX: R10.9 Unspecified abdominal pain (principal) | CPT/HCPCS: 99202 ==

== ENCOUNTER 2024-06-02 10:43 | Outpatient (AMB) | payer OTHER, SELFPAY ==
--- NOTE | 2024-06-02 10:51 | MHC.OFFVIS ---
Vital Signs 06/02/24 10:53 Height 5 ft 5 in Weight 158 lb BMI 26.3 BP 143/79 H Blood Pressure Location Lt brachial Position Sitting Respiration 15 Pulse 83 Pulse Source Pulse Oximeter Pulse Oximetry (%) 95 Oxygen Delivery Method Room Air Intake Visit Reasons: Low back pain Allergies amoxicillin [From Augmentin] Allergy (Verified 06/02/24 10:53) Hives clavulanic acid [From Augmentin] Allergy (Verified 06/02/24 10:53) Hives Medication List - Last Reconciled 06/02/24 by Laar Hutchinson LPN acamprosate 666 mg (2 x 333 mg) PO TID celecoxib (Celebrex) 100 mg PO BID 90 days hydroxyzine HCl 50 mg PO QID PRN 90 days lidocaine 5% leave on most painful area for up to 12 hrs topical 30 days Nicoderm CQ (nicotine) 1 patch transdermal DAILY NS omeprazole 20 mg PO DAILY ondansetron HCl 4 mg PO Q8H PRN pramipexole ER 1.5 mg PO DAILY trazodone 100 mg (2 x 50 mg) PO BEDTIME 90 days zoledronic [id number] 5 mg/100 mL ea IV HPI Comments Details: Patient presents today for follow up for persistent low back pain. She attempted one session of physical therapy last month and then was sick with cold like symptoms for 2 weeks. Her lumbar spine was completed last month with pending report. Patient is willing to continue PT and establish home exercise program for axial low back pain. She was also seen by Dr. Ruffin for abdominal wall pain and has pending US. Denies any cough, cold, infection, fever or any other significant changes in medical history since last office visit. 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 She was referred to our office by PCP for neck pain. Patient reports she has no neck pain. Reports axial low back pain that spreads across her waist but does not radiate into her lower extremities. Denies any recent trauma, injury or falls. She follows at [facility] in [place] for arthritis treatments and receives IV infusion for bone strengthening. Reports history of multiple therapeutic injections, including trigger finger injections at [facility] and has pending [facility] Orthopedic referral for hand pain. She wears left hand brace today and forgot right hand brace at home. Denies previous spine surgery or injections. She is hesitant towards interventional treatments at this time. She is willing to pursue formal PT and home exercise program. Pain affects her daily activities and functioning, mobility, mood, sleep and social interactions. Denies any fever or chills, weakness, bladder or bowel dysfunction or saddle anesthesia. Patient also reports chronic RLQ pain for over 8 years and has been completed abdominal and pelvis US and CT scan. She requests General Surgery evaluation for this. Oswestry Low Back Pain Disability Score=14 (mild disability) Location: Lower back pain, non-radiating Duration: Chronic pain 18 years, worsening over the past 3 months Characteristics of symptom or complaint: Aching, burning, throbbing, tight, shooting, sharp, spasming, radiating Aggravating or associated factors: Movements, bending, climbing stairs, prolonged sitting or walking Relieving factors: Standing, cymbalta, Celebrex, Biofreeze Treatment: None [facility] Medical History long-term (current) use of non-steroidal anti-inflammatories (nsaid) Osteoporosis Low back pain Hernia Lipoma of right upper extremity Narcotic abuse ETOH abuse Shoulder pain Depression Surgical History H/O hernia repair S/P excision of lipoma History of carpal tunnel release of both wrists History of partial hysterectomy Family History Father Asthma HTN (hypertension) Hypercholesteremia Cardiovascular disease Clotting disorder Maternal Grandmother Asthma HTN (hypertension) Hypercholesteremia Cardiovascular disease Paternal Grandfather Asthma Hypercholesteremia Leukemia Social History Housing: House Alcohol intake: former Patient Tobacco Use Status: Former Tobacco user Cigarette Packs Per Day: 1 Years Smoked: 43 quit 07/2023 e-Cigarette/Vaping Use: Never Used Second Hand Smoke Exposure: No Substance Use Type: Marijuana service: No Current occupational status: unemployed Cognitive needs: No Hearing needs: No Vision needs: No Review of Systems Const All systems reviewed & are unremarkable except as noted in HPI and below Physical Exam Vital Signs: Last Vital Signs Pulse 83 06/02/24 10:53 Resp 15 06/02/24 10:53 BP 143/79 H 06/02/24 10:53 Pulse Ox 95 06/02/24 10:53 Oxygen Delivery Method Room Air 06/02/24 10:53 BMI result Body Mass Index 26.3 General: Appears afebrile. Alert and oriented. Mood and affect appropriate. Follows and participates in conversation appropriately. Respiratory effort is unlabored. No cough. Able to transition from sit to stand unassisted. Ambulates with bilaterally normal heel strike and toe off. General: Yes no CVA tenderness Back/Spine/Pelvis Back: no CVA tenderness Cervical Spine: cervical ROM normal, No cervical muscular tenderness and No Cervical spine tenderness Thoracic/Lumbar Spine: thoracic and lumbar spine normal to inspection, Thoracic/lumbar spine scar(s) (right side mid paraspinal area), Lasegue's sign negative, straight leg raise negative bilaterally, pain with thoraco-lumbar ROM, paraspinal muscle tenderness on the right greater than left, thoraco-lumbar ROM limited, thoraco-lumbar spasm on the right in the lower lumbar, No thoracic spinal tenderness and No lumbar spinal tenderness Pelvis: no buttock tenderness Sacroiliac joints: bilaterally nontender Assessment & Plan Assessment & Plan (1) Low back pain: Code(s): M54.50 - Low back pain, unspecified Category: Medical Qualifiers: Chronicity: chronic Back pain laterality: midline Sciatica presence: without sciatica Qualified Code(s): M54.50 - Low back pain, unspecified; G89.29 - Other chronic pain (2) Lumbosacral spondylosis: Code(s): M47.817 - Spondylosis without myelopathy or radiculopathy, lumbosacral region Category: Medical (3) Chronic pain syndrome: Code(s): G89.4 - Chronic pain syndrome Category: Medical (4) Osteopenia: Code(s): M85.80 - Other specified disorders of bone density and structure, unspecified site Category: Medical Plan Patient will continue formal physical therapy for chronic axial, non-radiating low back pain. Lumbar spine imaging was reviewied with patient today, pending final report will be called to patient once available. Reviewed interventional treatments for axial low back pain, including diagnostic injections, Sprint PNS trial in RFA procedures. Patient has h/o osteoporosis in lumbar spine and now with osteopenia per recent bone scan. She reports multiple cortisone injections in the past. We will focus on stimulative or ablative procedures if no positive response to PT and home exercise program. Script provided for gabapentin. Side effects and precautions were discussed with patient. All questions and concerns have been answered and patient agreed with the treatment plan. Follow-up 6-8 weeks after PT and sooner as needed. Medications: New gabapentin 300 mg PO BEDTIME 30 caps 0RF pain G89.29 - Other chronic pain, G89.4 - Chronic pain syndrome, M47.817 - Spondylosis without myelopathy or radiculopathy, lumbosacral region, M54.50 - Low back pain, unspecified Coding Level of Care Code Est Pt Level 4 (50876) Complex EM visit Add On G2211 Diagnoses Chronic midline low back pain without sciatica M54.50; G89.29 Chronicity: chronic Back pain laterality: midline Sciatica presence: without sciatica Lumbosacral spondylosis M47.817 Chronic pain syndrome G89.4 Osteopenia M85.80
[2024-06-02 10:53] VITALS: BP 143/79; PULSE 83; RESP 15; O2SAT 95; BMI 26.3
== END 2024-06-02 11:15 | disposition home or self-care (01) ==
PROVIDERS: PCP Internal Medicine; Visit Provider Nurse Practitioner Family
DX: M54.50 Low back pain, unspecified (principal); G89.29 Other chronic pain; M47.817 Spondylosis without myelopathy or radiculopathy, lumbosacral region; G89.4 Chronic pain syndrome; M85.80 Other specified disorders of bone density and structure, unspecified site
CPT/HCPCS: 99214

== ENCOUNTER → 2024-06-02 10:43 | Outpatient (BNVA) | payer OTHER, SELFPAY | PROVIDERS: PCP Internal Medicine; Visit Provider Nurse Practitioner Family | DX: M54.50 Low back pain, unspecified (principal); M47.817 Spondylosis without myelopathy or radiculopathy, lumbosacral region; M85.80 Other specified disorders of bone density and structure, unspecified site; G89.29 Other chronic pain | CPT/HCPCS: 99212 ==

== ENCOUNTER 2024-06-09 10:58 | Outpatient (REF) | payer OTHER, SELFPAY | END 2024-06-09 10:59 | disposition home or self-care (01) | LOC: HO.MAMMO 10:58 | PROVIDERS: PCP Internal Medicine; Visit Provider Internal Medicine | DX: Z12.31 Encounter for screening mammogram for malignant neoplasm of breast (principal) | CPT/HCPCS: 77063; 77067 ==

== ENCOUNTER 2024-06-21 10:58 | Outpatient (AMB) | payer OTHER, SELFPAY ==
[2024-06-21 11:00] VITALS: BP 110/80; PULSE 82; BMI 26.9
--- NOTE | 2024-06-21 11:00 | A.OFFVIS_ITS ---
Vital Signs 06/21/24 11:00 Height 5 ft 5 in Weight 161 lb 13.109 oz BMI 26.9 BP 110/80 Blood Pressure Location Rt brachial Position Sitting Pulse 82 Pulse Source Pulse Oximeter Intake Visit Reasons: follow Intake Note: Patient last see by Doctor Any Diaz 03/18/24. Presents for follow up and XRs/labs test results. Medical Affairs Manager Required: No Accompanied by: Self / Same As Patient Allergies amoxicillin [From Augmentin] Allergy (Verified 06/21/24 11:06) Hives clavulanic acid [From Augmentin] Allergy (Verified 06/21/24 11:06) Hives Medication List - Last Reconciled 06/21/24 by Any Diaz MD acamprosate 666 mg (2 x 333 mg) PO TID celecoxib (Celebrex) 100 mg PO BID 90 days hydroxyzine HCl 50 mg PO QID PRN 90 days lidocaine 5% leave on most painful area for up to 12 hrs topical 30 days Nicoderm CQ (nicotine) 1 patch transdermal DAILY NS omeprazole 20 mg PO DAILY ondansetron HCl 4 mg PO Q8H PRN pramipexole ER 1.5 mg PO DAILY trazodone 100 mg (2 x 50 mg) PO BEDTIME 90 days zoledronic [id number] 5 mg/100 mL ea IV HPI Comments Details: Patient is a 53-year-old female current everyday smoker currently attempting to quit with nicotine patches, osteoporosis on Reclast infusion and erosive osteoarthritis here today for follow up Interval History: Patient last seen 03/17/24. At that time she was establishing care for bilateral hand pain. 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 Initially she started I am going to be seen with her dad and then has continued the business since he 9 years ago. She has been noticing that she has been having difficulty doing fine movements with her hands over the past year and has also noted locking of her fingers, needing to open them manually. Her orthopedic surgeon's office and was given a steroid injection. She states this helped for about a week but then symptoms returned. Nail she also notes pain in her lower back that has been worsening over the past several months. Inhibiting her ability garden. She denies prolonged morning stiffness, only has about 10-15 minutes. Has a strong family history of osteoarthritis as well as osteoporosis. Of note she had a scan past which showed osteoporosis and she is currently on IV Reclast infusions. Repeat scan here showed osteopenia with FRAX <20/5% Reclast stopped Current Rheumatology Medication(s): Celebrex 100mg bid Topical diclofenac 1% 4 times a day IV Reclast (not prescribed by this practice) [facility] Medical History (Updated 06/21/24 @ 12:00 by Any Diaz MD) senior living (current) use of non-steroidal anti-inflammatories (nsaid) Low back pain Hernia Lipoma of right upper extremity Narcotic abuse ETOH abuse Shoulder pain Depression Surgical History (Updated 05/30/24 @ 11:21 by Paulie Ruffin MD) H/O hernia repair S/P excision of lipoma History of carpal tunnel release of both wrists History of partial hysterectomy Family History Father Asthma HTN (hypertension) Hypercholesteremia Cardiovascular disease Clotting disorder Maternal Grandmother Asthma HTN (hypertension) Hypercholesteremia Cardiovascular disease Paternal Grandfather Asthma Hypercholesteremia Leukemia Social History Housing: House Alcohol intake: former Patient Tobacco Use Status: Former Tobacco user Cigarette Packs Per Day: 1 Years Smoked: 43 quit 07/2023 e-Cigarette/Vaping Use: Never Used Second Hand Smoke Exposure: No Substance Use Type: Marijuana service: No Current occupational status: unemployed Cognitive needs: No Hearing needs: No Vision needs: No Review of Systems Const Details: Review of Systems Constitutional: Denies fever, chills, weight loss ENT: Denies vision changes, eye pain or eye redness, dental caries, dry mouth GI: Denies nausea, vomiting, diarrhea, abdominal pain, change in BM Pulm: Denies SOB, BASS, hemoptysis, wheezing Cards: Denies chest pain, palpitations Skin: Denies Raynaud's, rash, nail changes, photosensitivity, ASSISTANT PROFESSOR IN FAMILY STUDIES: Denies headaches, weakness, paresthesias, recurrent falls MSK: as per HPI All other systems reviewed and are unremarkable except noted above Physical Exam Vital Signs: Last Vital Signs Pulse 82 06/21/24 11:00 BP 110/80 06/21/24 11:00 BMI result Body Mass Index 26.9 Physical Examination Patient well appearing and in no apparent painful distress Able to rise from chair without support. ?Gait normal. Constitutional Mucous membranes pink and moist patient alert and cooperative HEENT Conjunctiva and sclera clear. ?Pupils equal round and reactive to light. ?No lymphadenopathy. ?Normal dentition. Respiratory System Normal respiratory effort and able to speak in complete sentences. ?Clear to auscultation bilaterally. ?No crackles, rales, rhonchi, wheezes heard. Cardiac System Regular rate and rhythm. ?S1 and S2 heard no murmurs. ?Radial pulses intact bilaterally MSK Hands: Patient mild swelling and tenderness to the right 2nd PIP. Also has scattered Heberden's nodes. Negative CMC grind test bilaterally. Wrists: Bilateral wrists with range of motion. No tenderness to palpation. No synovial hypertrophy. Elbows: Elbows with full range of motion. No tenderness to palpation no evidence lateral or medial epicondylitis. No swelling Shoulders: Bilateral shoulders with full range of motion for passive and active. No point tenderness. Knees: Bilateral knees with crepitations. However no swelling or tenderness to palpation. Results Reviewed Results Reviewed: Laboratory Tests 04/29/24 10:31 Sodium 141 Potassium 4.5 Chloride 109 H Carbon Dioxide 26 BUN 17 H Creatinine 0.80 Total Bilirubin 0.4 AST 12 ALT 28 Alkaline Phosphatase 51 C-Reactive Protein < 0.10 Rheumatoid Factor < 13.0 Cycl Citrul Peptide IgG <16 HLA-B27 Negative XR Hands 12/2023 Gull wing erosion noted to the 2nd DIPs on the right. Central erosion noted. Peripheral osteophytes. Joint space narrowing involving PIPs and DIPs (my read) Assessment & Plan Assessment & Plan (1) Erosive (osteo)arthritis: Code(s): M15.4 - Erosive (osteo)arthritis Category: Medical Plan: #Erosive OA Patient's x-rays are classic for erosive osteoarthritis. Unfortunately there is limited treatment options for this. Recommend hand OT therapy as well as hand physical therapy. Also encouraged her to continue using diclofenac gel up to 4 times per day. Patient doing well with the Celebrex 100 mg twice a day RF and CCP negative. Normal inflammatory markers Plan - Celebrex 100mg bid, can increase to 200mg bid if needed - Topical diclofenac 1% 4 times a day - CMC splinting - RTC 6 months - Labs before visit: CBC, CMP, ESR, CRP (2) Low back pain: Code(s): M54.50 - Low back pain, unspecified Category: Medical Qualifiers: Chronicity: chronic Back pain laterality: midline Sciatica presence: without sciatica Qualified Code(s): M54.50 - Low back pain, unspecified; G89.29 - Other chronic pain Plan: #Low back pain Low back pain. XR L spine showing osteophytes and degenerative disease Plan Physical therapy (3) senior living (current) use of non-steroidal anti-inflammatories (nsaid): Code(s): Z79.1 - senior living (current) use of non-steroidal anti-inflammatories (NSAID) Category: Medical Plan: #Long-term Use of NSAIDs Discussed with patient the benefits and risk of NSAIDs for managing the rheumatic condition Benefits include: - Reduced the pain, improved mobility, and increased participation in activities Risks include: - GI upset, potential also worsening or formation (especially in patients > 65 years old) Recommended using proton pump inhibitors (PPIs) for the duration of NSAID use to reduce the risk of gastric ulcers (4) Osteopenia: Code(s): M85.80 - Other specified disorders of bone density and structure, unspecified site Category: Medical Qualifiers: Osteopenia location: multiple sites Qualified Code(s): M85.89 - Other specified disorders of bone density and structure, multiple sites Plan: #Osteopenia Osteopenia involving the AP spine and the left femur neck. FRAX 13.3/1.6%. Treatment is not indicated at this time. We will stop IV Reclast and start vitamin-D supplementation. We will also recommend weight-bearing exercises. Pamphlet given. Plan - Stop IV Reclast - Vitamin D supplementation - Weight bearing exercises - RTC 6 months - Labs beore next visit: Vit D Plan I spent 25 minutes reviewing the record and labs, seeing the patient, discussing the treatment plan and documenting in the medical record ? Medications: New cholecalciferol (vitamin D3) 50 mcg PO DAILY 90 caps 1RF E55.9 - Vitamin D deficiency, unspecified diclofenac sodium 1% (Arthritis Pain (diclofenac)) apply to single knee, ankle, foot; for foot includes sole/toes/top of foot 4 grams topical QID 100 grams 5RF M15.4 - Erosive (osteo)arthritis Refilled celecoxib (Celebrex) 100 mg PO BID 90 days 180 caps 1RF M15.4 - Erosive (osteo)arthritis, M54.50 - Low back pain, unspecified Coding Level of Care Code Est Pt Level 3 (93657) Diagnoses Erosive (osteo)arthritis M15.4 Chronic midline low back pain without sciatica M54.50; G89.29 Chronicity: chronic Back pain laterality: midline Sciatica presence: without sciatica 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
== END 2024-06-21 11:33 | disposition home or self-care (01) ==
PROVIDERS: PCP Internal Medicine; Visit Provider Student in an Organized Health Care Education/Training Program
DX: M15.4 Erosive (osteo)arthritis (principal); M54.50 Low back pain, unspecified; G89.29 Other chronic pain; Z79.1 Long term (current) use of non-steroidal anti-inflammatories (NSAID); M85.89 Other specified disorders of bone density and structure, multiple sites
CPT/HCPCS: 99213

== ENCOUNTER → 2024-06-21 10:58 | Outpatient (BNVA) | payer OTHER, SELFPAY | PROVIDERS: PCP Internal Medicine; Visit Provider Student in an Organized Health Care Education/Training Program | DX: M15.4 Erosive (osteo)arthritis (principal); M54.50 Low back pain, unspecified; G89.29 Other chronic pain; M85.89 Other specified disorders of bone density and structure, multiple sites; Z79.1 Long term (current) use of non-steroidal anti-inflammatories (NSAID) | CPT/HCPCS: 99212 ==

== ENCOUNTER 2024-07-18 09:01 | Outpatient (REF) | payer OTHER, SELFPAY ==
--- OUTSIDE RECORDS SUMMARY | 2024-07-18 09:33 | XMS_ITS | Encounter Summary ---
Author Organization [facility] Address [address] [place] [address] Care Team Providers Care Manager Mental Health Name Role Phone Ying Ortega MD Primary Care Provider Un available Maia Fraser MD Primary Care Provider + [phone] Encounter Details Date Type Department Care Team Description 07/19/2020 Telephone Medicine/Pediatrics - [address] [phone] Ivy Cabrera PA-C [address] [place] [address] Social History Tobacco Use Types Packs/Day Years Used Date Smoking Tobacco: Former Cigarettes 0.5 25 Q uit: 07/30/2016 Smokeless Tobacco: Never Alcohol Use Standard Drinks/Week Comments Yes 0 (1 standard drink = 0.6 oz pur e alcohol) Sex Assigned at Date Recorded Not on file documented as of this encounter Miscellaneous Notes * Telephone Encounter - Araceli Garcia - 07/23/2020 10:05 AM EST BSR reached patient & was able to schedule next Consult with Joshua Sibley [facility] Pharmacology Clinician on 10/15 @ 1pm. * Telephone Encounter - Araceli Garcia - 07/19/2020 11:51 AM EST Left message to have patient return call to [facility] Pharmacy clinic to schedule a Consult with Joshua Sibley. Joshua Laskey's consults are now scheduling at the end of September. * Telephone Encounter - Ivy Cabrera PA-C - 07/19/2020 11:26 AM EST Please reach back out to patient for referral to pharmacy documented in this encounter Plan of Treatment Not on file documented as of this encounter Visit Diagnoses Not on filedocumented in this encounter Care Teams Manager Mental Health Relationship Specialty Start Date End Date Ying Ortega MD PCP - General 08/14/08 09/12/21 Maia Fraser MD [address] [place] [id number] PCP - General Internal Medicine 09/13/21 documented as of this encounter
--- OUTSIDE RECORDS SUMMARY | 2024-07-18 09:33 | XMS_ITS | Encounter Summary ---
Author Organization [facility] Address [facility] [place] [address] Care Team Providers Care Inside Sales Agent Name Role Phone Ying Ortega MD Primary Care Provider Un available Maia Fraser MD Primary Care Provider + [phone] Reason for Visit * Reason Onset Date Comments Prior Authorization 10/01/2018 Encounter Details Date Type Department Care Team Description 10/01/2018 Telephone Medicine/Pediatrics - [address] [phone] Ying Ortega MD Prior Authorization Social History Tobacco Use Types Packs/Day Years Used Date Smoking Tobacco: Heavy Smoker Cigarettes 0.5 25 Last attempted t o quit: 07/30/2016 Smokeless Tobacco: Never Alcohol Use Standard Drinks/Week Comments No 0 (1 standard drink = 0.6 oz pur e alcohol) Sex Assigned at Date Recorded Not on file documented as of this encounter Miscellaneous Notes * Telephone Encounter - Edilia Mitchell M.A. - 10/12/2018 12:27 PM EDT Spoke with Ade from [employer] who stated that pt doesn't have coverage with them.She was unable to locate her in the system. Called [facility] pharmacy who stated that the rx went out on 10/07/18 to the pt. * Telephone Encounter - Yael Barragan M.A. - 10/04/2018 1:06 PM EDT Dx code:F17.200 Tobacco use disorder Prior authorization done on [employer] [facility] form for Nicoderm CQ 21mg patches-Brand name and faxed. Patient states when she used the generic patch she still smoked, but when she used the brand name Nicoderm she felt sick if she smoked. * Telephone Encounter - Hamida Suttono - 10/01/2018 3:59 PM EDT Pre Authorization for Medication-do not complete and send this encounter unless you have the fax from the pharmacy. Is this a Cover My Meds request: [place] of Medication NICODERM CQ 21 MG/24HR Dose of Medication NICODERM CQ 21 MG/24HR What is the RX # from the faxed refill? How does patient take this med? Place 1 Patch onto the skin every 24 hours. - Transdermal What Pharmacy did the fax come from: [facility] fax #: [phone] [employer] Information from fax: What Prescription Plan does the patient have? BIN/PCN if applicable: Cardholder ID: Person Code: Relationship Code: Help desk phone: documented in this encounter Plan of Treatment Not on file documented as of this encounter Visit Diagnoses Not on filedocumented in this encounter Care Teams Inside Sales Agent Relationship Specialty Start Date End Date Ying Ortega MD PCP - General 08/14/08 09/12/21 Maia Fraser MD [address] [place] [id number] PCP - General Internal Medicine 09/13/21 documented as of this encounter
--- OUTSIDE RECORDS SUMMARY | 2024-07-18 09:33 | XMS_ITS | Encounter Summary ---
Author Organization [facility] Address [address] [place] [address] Care Team Providers Care Learning Developer Name Role Phone Ying Ortega MD Primary Care Provider Un available Maia Fraser MD Primary Care Provider Encounter Details Date Type Department Care Team Description 05/20/2013 Electronic Organ Mechanic Report Medical Records [address] [place] [address] Padmaja Palumbo MD Social History Tobacco Use Types Packs/Day Years Used Date Smoking Tobacco: Every Day Cigarettes 1 25 Smokeless Tobacco: Never Alcohol Use Standard Drinks/Week Comments No 0 (1 standard drink = 0.6 oz pur e alcohol) Sex Assigned at Date Recorded Not on file documented as of this encounter Plan of Treatment Not on file documented as of this encounter Visit Diagnoses Not on filedocumented in this encounter Care Teams Learning Developer Relationship Specialty Start Date End Date Ying Ortega MD PCP - General 08/14/08 09/12/21 Maia Fraser MD [address] [place] [id number] PCP - General Internal Medicine 09/13/21 documented as of this encounter
--- OUTSIDE RECORDS SUMMARY | 2024-07-18 09:33 | XMS_ITS | Clinical Summary ---
Author Organization [facility] Address [address] [place] [address] Care Team Providers Care Occupational Health Nurse Supervisor Name Role Phone Maia Fraser MD Primary Care Provider + [phone] Allergies Active Allergy Reactions Severity Noted Date Comments Augmentin Hives/Urticaria 04/25/2013 Uncertain if this is a true allergy as she experienced hives a couple of weeks after starting augmentin, but she mentions trying nutella hazelnut spread for the first time the day before the hives appears Seasonal Allergies Runny Nose/Rhinitis 01/01/20 12 Medications Medication Sig Dispensed Refills Start Date End Date Status ALBUTEROL SULFATE (PROAIR HFA) 108 (90 BASE) MCG/ACT AERS Inhale 2 Puffs into the lungs 4 times daily as needed for Cough or Wheezing. 1 Inhaler 2 01/26/2014 Active triamcinolone (KENALOG) 0.025 % cream Apply to affected areas twice a day sparingly as needed 30 g 0 11/11/2017 Active Buprenorphine HCl-Naloxone HCl 8-[address] 1.5 Film under the tongue every morning. 0 Active Cyanocobalamin (Vitamin B 12) 500 MCG Tab Take 1 tablet by mouth daily. 0 Active paroxetine (Paxil) 40 MG tablet Take 1 tablet by mouth every morning for 30 days. 90 tablet 1 02/14/2021 Active omeprazole (PRILOSEC) 20 MG capsule TAKE 1 CAPSULE BY MOUTH DAILY 90 capsule 1 03/28/2021 Active estradiol (ESTRACE) 0.1 MG/GM vaginal cream 0 04/29/2021 Active acamprosate (CAMPRAL) 333 MG tablet Take 2 Tablets by mouth 3 times daily. 540 tablet 0 05/29/2021 Active ondansetron (ZOFRAN) 4 MG tablet TAKE 1 TABLET BY MOUTH EVERY 12 HOURS NEEDED FOR NAUSEA 30 tablet 1 07/22/2021 Active trazodone (DESYREL) 50 MG tablet TAKE 1 TO 2 TABLETS BY MOUTH EVERY NIGHT AT BEDTIME NEEDED FOR SLEEP 180 tablet 1 07/22/2021 Active cyclobenzaprine (FLEXERIL) 10 MG tablet TAKE 1 TABLET BY MOUTH TWO TIMES A DAY NEEDED FOR MUSCLE SPASMS 180 tablet 0 07/22/2021 Active Active Problems Problem Noted Date Alcohol abuse 07/19/2020 Insomnia 05/03/2019 Major depressive disorder 05/03/2019 Hiatal hernia 10/01/2018 Hypertension 03/24/2017 Plantar fasciitis of right foot 03/23/20 17 Cervical spondylosis 06/09/2014 Fibroid uterus 08/25/2011 Lumbar hernia 02/04/2011 Opiate dependence restarted 02/2011 Overview: Dr Jordan, [facility] SUBOXONE, this ended with hospitalization in October 2010 Was clean until surgery 02/2011 and currently attempting to quit 05/2011 As of 04/2013, clean 65 days back on suboxone As of 04/2015: still clean since 12/2013, on Suboxone. Lateral epicondylitis of elbow 1 Overview: IMO update Tobacco use disorder 09/15/2008 Shoulder pain 09/15/2008 Allergic rhinitis, cause unspecified Immunizations Name Administration Dates Next Due Influenza (> 6 Months) 07/28/2016,2014,04/06/2014, 013 Influenza Vaccine-preservati ve Free-quadrivalent 4 Years 05/08/2021 Tdap 02/23/2012 Family History Medical History Relation Name Comments CAD Father Stroke Father Osteoporosis Mother Cancer, Other Mother's side Mother's sist er's daughter, Stage 4 unknown type CA Breast Negative Hx CA Colon Negative Hx CA Ovarian Negative Hx Uterine Cancer Negative Hx Relation Name Status Comments Father (Age 67) CVA x2, [place] x3, CAD-lung disease (07/02/14) Maternal Grandfather (Age 84) le ukemia Maternal Grandmother Alive osteopo rosis, CVA age 92 Mother Alive osteoporosis, p ancreas tumor removed. Many cysts in body Mother's side Paternal Grandfather (Age 70s) kathy lzheimer's Paternal Grandmother (Age 70s) l luna ca (smoker) Sister 1 Alive Ashley-healt hy Sister 2 Alive Ying-healt hy Sister 3 Alive Zully-eczema Social History Tobacco Use Types Packs/Day Years Used Date Smoking Tobacco: Former Cigarettes 0.5 25 Q uit: 07/30/2016 Smokeless Tobacco: Never Tobacco Cessation:Ready to Q uit: Yes; Counseling Given: No Alcohol Use Standard Drinks/Week Comments Yes 0 (1 standard drink = 0.6 oz pur e alcohol) Sex Assigned at Date Recorded Not on file Last Filed Vital Signs Vital Sign Reading Time Taken Comments Blood Pressure 120/74 05/08/2021 4:18 PM EST Pulse 56 02/14/2021 1:11 PM EDT Temperature 36.3 ??C (97.3 ??F) 05/08/2021 4:18 PM ES T Respiratory Rate 16 07/23/2020 10:47 AM EST Oxygen Saturation 96% 12/24/2017 10:55 AM EDT Inhaled Oxygen Concentration - - Weight 64.2 kg (141 lb 7 oz) 05/08/2021 4:18 PM EST Height 165.1 cm (5' 5 ) 02/14/2021 1:11 PM EDT Body Mass Index 23.54 02/14/2021 1:11 PM EDT Plan of Treatment Health Maintenance Due Date Last Done Comments Covid-19 Vaccine (#1) 01/17/1971 BASELINE HEALTH EXAM 40-64 06/25/201006/25 (External Completion) CERVICAL CANCER SCREENING 12/31/20142011, 12/30/2010, 08/01/2009, Additional history exists SHINGLES VACCINE (1 of 2) 2018 MAMMOGRAM 07/16/2020 07/16/2019, 06/25, 07/06/2017, Additional history exists DTAP/TDAP/TD (2 - Td or Tdap) 02/22/2022 02/23/2012 INFLUENZA (#1) 2024 05/08/2021, 03/0 10/2016, 03/20/2015, Additional history exists CHOLESTEROL SCREENING 05/14/2025 05/14/2020 , 01/26/2014, 06/25/2008 (External Completion) COLON CANCER SCREENING 07/28/2028 07/28/2018, 2018 PNEUMOCOCCAL VACCINE FOR HIG H RISK PATIENTS (#1) 2033 Care Teams Occupational Health Nurse Supervisor Relationship Specialty Start Date End Date Maia Fraser MD [address] [place], [place] PCP - General Internal Medicine 09/13/21
--- OUTSIDE RECORDS SUMMARY | 2024-07-18 09:33 | XMS_ITS | Encounter Summary ---
Author Organization [facility] Address [address] [place] [address] Care Team Providers Care Oracle Technical Architect Name Role Phone Ying Ortega MD Primary Care Provider Un available Maia Fraser MD Primary Care Provider Encounter Details Date Type Department Care Team Description 05/05/2013 Release of Information Medical Records [address] [place] [id number] Abstract, Provider Social History Tobacco Use Types Packs/Day Years [...] on filedocumented in this encounter Care Teams Oracle Technical Architect Relationship Specialty Start Date End Date Ying Ortega MD PCP - General 08/14/08 09/12/21 Maia Fraser MD [address] [place] [id number] PCP - General Internal Medicine 09/13/21 documented as of this encounter
--- OUTSIDE RECORDS SUMMARY | 2024-07-18 09:33 | XMS_ITS | Encounter Summary ---
Author Organization [facility] Address [address] [place] [address] Care Team Providers Care Development Analyst Name Role Phone Ying Ortega MD Primary Care Provider Un available Maia Fraser MD Primary Care Provider Encounter Details Date Type Department Care Team Description 03/03/2019 Hospital Medical Records [address] [place] [address] Cheng Bond MD Social History Tobacco Use Types Packs/Day [...] on filedocumented in this encounter Care Teams Development Analyst Relationship Specialty Start Date End Date Ying Ortega MD PCP - General 08/14/08 09/12/21 Maia Fraser MD [address] [place] [id number] PCP - General Internal Medicine 09/13/21 documented as of this encounter
--- OUTSIDE RECORDS SUMMARY | 2024-07-18 09:33 | XMS_ITS | Encounter Summary ---
Author Organization [facility] Address [address] [place] [address] Care Team Providers Care Material Reprocessing Associate Name Role Phone Ying Ortega MD Primary Care Provider Un available Maia Fraser MD Primary Care Provider [phone] Encounter Details Date Type Department Care Team Description 12/21/2015 Orders Only Medicine/Pediatrics - [address] [phone] Hira Tong PA-C Social History Tobacco Use Types Packs/Day Years Used Date Smoking Tobacco: Every Day Cigarettes 1 25 Smokeless Tobacco: Never Comments:04/2015 - has dropp ed to 1/2 PPD Alcohol Use Standard Drinks/Week Comments No 0 (1 standard drink = 0.6 oz pur e alcohol) Sex Assigned at Date Recorded Not on file documented as of this encounter Plan of Treatment Not on file documented as of this encounter Visit Diagnoses Not on filedocumented in this encounter Care Teams Material Reprocessing Associate Relationship Specialty Start Date End Date Ying Ortega MD PCP - General 08/14/08 09/12/21 Maia Fraser MD [address] [place] [address] PCP - General Internal Medicine 09/13/21 documented as of this encounter
--- OUTSIDE RECORDS SUMMARY | 2024-07-18 09:33 | XMS_ITS | Encounter Summary ---
Author Organization [facility] Address [address] [place] [address] Care Team Providers Care Tribal Judge Name Role Phone Ying Ortega MD Primary Care Provider Un available Maia Fraser MD Primary Care Provider [phone] Encounter Details Date Type Department Care Team Description 11/13/2020 Yard General Car Supervisor Report Medical Records [address] [place] [address] Abstract, Provider Social History Tobacco Use Types Packs/Day Years Used Date Smoking Tobacco: Former Cigarettes 0.5 25 Q uit: 07/30/2016 Smokeless Tobacco: Never Alcohol Use Standard Drinks/Week Comments Yes 0 (1 standard drink = 0.6 oz pur e alcohol) Sex Assigned at Date Recorded Not on file COVID-19 Exposure Response Date Recorded In the last month, have you been in contact with someone who was confirmed or suspected to have Coronavirus / COVID-19? No / Unsure 11/12/2020 10:31 AM EDT documented as of this encounter Plan of Treatment Not on file documented as of this encounter Visit Diagnoses Not on filedocumented in this encounter Care Teams Tribal Judge Relationship Specialty Start Date End Date Ying Ortega MD PCP - General 08/14/08 09/12/21 Maia Fraser MD [address] [place] [address] PCP - General Internal Medicine 09/13/21 documented as of this encounter
--- OUTSIDE RECORDS SUMMARY | 2024-07-18 09:33 | XMS_ITS | Encounter Summary ---
Author Organization [facility] Address [address] [place] [address] Care Team Providers Care Salicylic Acid Blender Name Role Phone Ying Ortega MD Primary Care Provider Un available Maia Fraser MD Primary Care Provider [phone] Encounter Details Date Type Department Care Team Description 07/06/2018 Hospital Medical Records [address] [place] [address] Cheng Bond MD Social History Tobacco Use [...] on filedocumented in this encounter Care Teams Salicylic Acid Blender Relationship Specialty Start Date End Date Ying Ortega MD PCP - General 08/14/08 09/12/21 Maia Fraser MD [address] [place] [address] PCP - General Internal Medicine 09/13/21 documented as of this encounter
--- OUTSIDE RECORDS SUMMARY | 2024-07-18 09:33 | XMS_ITS | Encounter Summary ---
Author Organization [facility] Address [address] [place] [address] Care Team Providers Care Seat Mender Name Role Phone Ying Ortega MD Primary Care Provider Un available Maia Fraser MD Primary Care Provider Encounter Details Date Type Department Care Team Description 11/14/2010 Hospital Medical Records [address] [place] [address] Guillermo Carrasco Social History Tobacco Use Types Packs/Day Years [...] on filedocumented in this encounter Care Teams Seat Mender Relationship Specialty Start Date End Date Ying Ortega MD PCP - General 08/14/08 09/12/21 Maia Fraser MD [address] [place] [address] PCP - General Internal Medicine 09/13/21 documented as of this encounter
--- OUTSIDE RECORDS SUMMARY | 2024-07-18 09:33 | XMS_ITS | Encounter Summary ---
Author Organization [facility] Address [address] [place] [address] Care Team Providers Care Communication Skills Instructor Name Role Phone Ying Ortega MD Primary Care Provider Un available Maia Fraser MD Primary Care Provider [phone] Encounter Details Date Type Department Care Team Description 05/08/2014 Toaster Operator Report Medical Records [address] [place] [address] Padmaja Palumbo MD Social History Tobacco Use Types Packs/Day Years Used Date Smoking Tobacco: Every Day Cigarettes 1 25 Smokeless Tobacco: Never Comments:04/24/14 - cut down to 5-6 cigs/day Alcohol Use Standard Drinks/Week Comments No 0 (1 standard drink = 0.6 oz pur e alcohol) Sex Assigned at Date Recorded Not on file documented as of this encounter Plan of Treatment Not on file documented as of this encounter Visit Diagnoses Not on filedocumented in this encounter Care Teams Communication Skills Instructor Relationship Specialty Start Date End Date Ying Ortega MD PCP - General 08/14/08 09/12/21 Maia Fraser MD [address] [place] [address] PCP - General Internal Medicine 09/13/21 documented as of this encounter
--- OUTSIDE RECORDS SUMMARY | 2024-07-18 09:33 | XMS_ITS | Encounter Summary ---
Author Organization [facility] Address [address] [place] [address] Care Team Providers Care Imcu Nurse Name Role Phone Ying Ortega MD Primary Care Provider Un available Maia Fraser MD Primary Care Provider Encounter Details Date Type Department Care Team Description 2012 Employment Counselor Report Medical Records [address] [place] [address] Chris Michael Social History Tobacco Use Types Packs/Day Years [...] on filedocumented in this encounter Care Teams Imcu Nurse Relationship Specialty Start Date End Date Ying Ortega MD PCP - General 08/14/08 09/12/21 Maia Fraser MD [address] [place] [address] PCP - General Internal Medicine 09/13/21 documented as of this encounter
--- OUTSIDE RECORDS SUMMARY | 2024-07-18 09:33 | XMS_ITS | Encounter Summary ---
Author Organization [facility] Address [address] [place] [address] Care Team Providers Care Corporate Real Estate Manager Name Role Phone Ying Ortega MD Primary Care Provider Un available Maia Fraser MD Primary Care Provider [phone] Encounter Details Date Type Department Care Team Description 04/08/2021 Airplane Inspector Report Medical Records [address] [place] [address] Abstract, Provider Social History Tobacco Use Types [...] on filedocumented in this encounter Care Teams Corporate Real Estate Manager Relationship Specialty Start Date End Date Ying Ortega MD PCP - General 08/14/08 09/12/21 Maia Fraser MD [address] [place] [address] PCP - General Internal Medicine 09/13/21 documented as of this encounter
--- OUTSIDE RECORDS SUMMARY | 2024-07-18 09:33 | XMS_ITS | Encounter Summary ---
Author Organization [facility] Address [address] [place] [address] Care Team Providers Care Sleeping Bag Filler Name Role Phone Ying Ortega MD Primary Care Provider Un available Maia Fraser MD Primary Care Provider [phone] Encounter Details Date Type Department Care Team Description 07/09/2018 Release of Information Medical Records [address] [place] [address] Abstract, Provider Social History Tobacco Use Types [...] on filedocumented in this encounter Care Teams Sleeping Bag Filler Relationship Specialty Start Date End Date Ying Ortega MD PCP - General 08/14/08 09/12/21 Maia Fraser MD [address] [place] [address] PCP - General Internal Medicine 09/13/21 documented as of this encounter
--- OUTSIDE RECORDS SUMMARY | 2024-07-18 09:33 | XMS_ITS | Encounter Summary ---
Author Organization [facility] Address [address] [place] [address] Care Team Providers Care Fingerprint Classifier Name Role Phone Ying Ortega MD Primary Care Provider Un available Maia Fraser MD Primary Care Provider [phone] Encounter Details Date Type Department Care Team Description 10/14/2011 Administrative Resources Associate Report Medical Records [address] [place] [address] Eliseo Bradley MD [address] [place] [phone] Social History Tobacco Use Types Packs/Day Years Used Date Smoking Tobacco: Every Day Cigarettes 0.3 25 Smokeless Tobacco: Never Alcohol Use Standard Drinks/Week Comments No 0 (1 standard drink = 0.6 oz pur e alcohol) Sex Assigned at Date Recorded Not on file documented as of this encounter Plan of Treatment Not on file documented as of this encounter Visit Diagnoses Not on filedocumented in this encounter Care Teams Fingerprint Classifier Relationship Specialty Start Date End Date Ying Ortega MD PCP - General 08/14/08 09/12/21 Maia Fraser MD [address] [place] [address] PCP - General Internal Medicine 09/13/21 documented as of this encounter
--- OUTSIDE RECORDS SUMMARY | 2024-07-18 09:33 | XMS_ITS | Encounter Summary ---
Author Organization [facility] Address [address] [place] [address] Care Team Providers Care Monotype Operator Name Role Phone Ying Ortega MD Primary Care Provider Un available Maia Fraser MD Primary Care Provider Encounter Details Date Type Department Care Team Description 06/28/2012 Hospital Medical Records [address] [place] [address] [place], [place] Social History Tobacco Use Types Packs/Day Years [...] on filedocumented in this encounter Care Teams Monotype Operator Relationship Specialty Start Date End Date Ying Ortega MD PCP - General 08/14/08 09/12/21 Maia Fraser MD [address] [place] [address] PCP - General Internal Medicine 09/13/21 documented as of this encounter
--- OUTSIDE RECORDS SUMMARY | 2024-07-18 09:33 | XMS_ITS | Encounter Summary ---
Author Organization [facility] Address [facility] [place] [address] Care Team Providers Care Formulator Name Role Phone Ying Ortega MD Primary Care Provider Un available Maia Fraser MD Primary Care Provider Encounter Details Date Type Department Care Team Description 02/06/2016 Slab Worker Report Medical Records [address] [place] [address] Jonathan Rodriguez MD Social History Tobacco Use Types Packs/Day Years Used Date Smoking Tobacco: Every Day Cigarettes 0.5 25 Smokeless Tobacco: Never Alcohol Use Standard Drinks/Week Comments No 0 (1 standard drink = 0.6 oz pur e alcohol) Sex Assigned at Date Recorded Not on file documented as of this encounter Plan of Treatment Not on file documented as of this encounter Visit Diagnoses Not on filedocumented in this encounter Care Teams Formulator Relationship Specialty Start Date End Date Ying Ortega MD PCP - General 08/14/08 09/12/21 Maia Fraser MD [address] [place] [address] PCP - General Internal Medicine 09/13/21 documented as of this encounter
== END 2024-07-18 09:02 | disposition home or self-care (01) ==
LOC: HO.US 09:01
PROVIDERS: PCP Internal Medicine; Visit Provider Surgery
DX: Z13.89 Encounter for screening for other disorder (principal)

== ENCOUNTER 2024-07-22 10:33 | Outpatient (AMB) | payer OTHER, SELFPAY ==
--- NOTE | 2024-07-22 10:44 | MHC.PC.OV ---
Vital Signs 07/22/24 10:51 Height 5 ft 5 in Weight 161 lb BMI 26.8 BP 122/86 Blood Pressure Location Lt brachial Position Sitting Respiration 12 Pulse 77 Pulse Source Pulse Oximeter Pulse Oximetry (%) 99 Oxygen Delivery Method Room Air Intake Visit Reasons: F/U Intake Note: Follow up. Requesting refill on Omeprazole 20 and Ondansetron 4mg. Intervention Analyst Required: No Allergies amoxicillin [From Augmentin] Allergy (Verified 06/21/24 11:06) Hives clavulanic acid [From Augmentin] Allergy (Verified 06/21/24 11:06) Hives Tobacco use date assessed: 07/22/24 Dental Screening Dental Screen Date: 01/04/24 HPI HPI Comments History of Present Illness Details 54 year old female with a past medical history htn, resolved etoh use, esophageal stricture, thyroid nodules, depression presenting for follow up Psych: Anxiety & Depression: On ?effexor, propranolol. Was on wellbutrin for years. continues addiction support on suboxone & acamprosate CV: Previously on BP meds, staying normotensive off GI: Reflux, gastritis well controlled on PPI. Has esophageal stricture, gets dilation. Follow with [facility] Dr Bond. MSK: Erosive arthritis, osteoarthritis. Low back pain, DDD, joint pain, bilateral hands with swelling. On celebrex Endocrine: DXA with osteoporosis: referred for treatment given GI history. Heme/Onc Neck u/s with LN-indeterminate, stable. She had biopsy which was reassuring Colonoscopy 2018-Dr Bond. 10 year repeat Follows annually with gynecology. s/p partial hysterectomy Mammo 10/2022 ROS see HPI PHYSICAL EXAM: GENERAL: Alert and oriented x 3. NAD EYES: EOMI. Anicteric. HENT: Moist mucous membranes. No scleral icterus. No cervical lymphadenopathy. LUNGS: Clear to auscultation bilaterally. CARDIOVASCULAR: Regular rate and rhythm. No murmur. No JVD. ABDOMEN: Soft, non-tender +bs EXTREMITIES: No edema. Non-tender. SKIN: No rashes or lesions. Warm. NEUROLOGIC: No focal neurological deficits. CN II-XII grossly intact PSYCHIATRIC: Cooperative. Appropriate mood and affect [facility] Medical History watermaster (current) use of non-steroidal anti-inflammatories (nsaid) Low back pain Hernia Lipoma of right upper extremity Narcotic abuse ETOH abuse Shoulder pain Depression Surgical History H/O hernia repair S/P excision of lipoma History of carpal tunnel release of both wrists History of partial hysterectomy Family History Father Asthma HTN (hypertension) Hypercholesteremia Cardiovascular disease Clotting disorder Maternal Grandmother Asthma HTN (hypertension) Hypercholesteremia Cardiovascular disease Paternal Grandfather Asthma Hypercholesteremia Leukemia Social History Housing: House Alcohol intake: former Patient Tobacco Use Status: Former Tobacco user Cigarette Packs Per Day: 1 Years Smoked: 43 quit 07/2023 e-Cigarette/Vaping Use: Never Used Second Hand Smoke Exposure: No Substance Use Type: Marijuana service: No Current occupational status: unemployed Cognitive needs: No Hearing needs: No Vision needs: No Questionnaire Thrive Questionnaire Date Thrive assessed: 07/22/24 I am a: Patient What is your living situation today?: I have a steady place to live THRIVE Score: 0 DAMIAN-7 AMB Questionnaire DAMIAN-7 Date DAMIAN - 7 assessed: 01/04/24 Source: Developed by Drs. Chad Arteaga, Sofía Garvin, Dre Seymour and colleagues, with an educational ila from [employer]. Physical exam (Primary Care) Vital Signs: Last Vital Signs Pulse 77 07/22/24 10:51 Resp 12 07/22/24 10:51 BP 122/86 07/22/24 10:51 Pulse Ox 99 07/22/24 10:51 Oxygen Delivery Method Room Air 07/22/24 10:51 BMI result Body Mass Index 26.8 Tobacco/Smoking Status: Tobacco use Status Tobacco use date assessed 07/22/24 07/22/24 10:53 Patient Tobacco Use Status Former Tobacco user 07/22/24 10:53 e-Cigarette/Vaping Use Never Used 07/22/24 10:53 Thrive Assessment: Date of Thrive Assessment Date Thrive assessed 07/22/24 07/22/24 10:46 Coding Level of Care Code Est Pt Level 4 (92860) Diagnoses Chronic pain syndrome G89.4 Major depressive disorder, recurrent, in partial remission F33.41 Gastroesophageal reflux disease, unspecified whether esophagitis present K21.9 Esophagitis presence: esophagitis presence not specified Assessment & Plan Assessment & Plan (1) Chronic pain syndrome: Code(s): G89.4 - Chronic pain syndrome Category: Medical Plan: Stable, continue current medications. Continue rheumatology, ortho follow up (2) Major depressive disorder, recurrent, in partial remission: Code(s): F33.41 - Major depressive disorder, recurrent, in partial remission Category: Medical Plan: Increased anxiety otherwise stable (3) GERD (gastroesophageal reflux disease): Code(s): K21.9 - Gastro-esophageal reflux disease without esophagitis Category: Medical Qualifiers: Esophagitis presence: esophagitis presence not specified Qualified Code(s): K21.9 - Gastro-esophageal reflux disease without esophagitis Plan: stable on PPI Medications: Refilled ondansetron HCl 4 mg PO Q8H PRN 30 tabs 3RF for nausea/vomiting omeprazole 20 mg PO DAILY 90 caps 3RF Nicoderm CQ (nicotine) 1 patch transdermal DAILY 28 ea 3RF NS F17.200 - Nicotine dependence, unspecified, uncomplicated
[2024-07-22 10:51] VITALS: BP 122/86; PULSE 77; RESP 12; O2SAT 99; BMI 26.8
--- OUTSIDE RECORDS SUMMARY | 2024-07-22 12:06 | XMS_ITS | Encounter Summary ---
Author Organization [facility] Address [address] [place] [address] Care Team Providers Care Jacquard Lace Weaver Name Role Phone Ying Ortega MD Primary Care Provider Un available Maia Fraser MD Primary Care Provider [phone] Encounter Details Date Type Department Care Team Description 09/27/2015 Mixer Operator Vacuum Pan Salt Report Medical Records [address] [place] [address] Rehab, [facility] [address] [place] [address] Social History Tobacco Use Types Packs/Day Years [...] on filedocumented in this encounter Care Teams Jacquard Lace Weaver Relationship Specialty Start Date End Date Ying Ortega MD PCP - General 08/14/08 09/12/21 Maia Fraser MD [address] [place] [address] PCP - General Internal Medicine 09/13/21 documented as of this encounter
--- OUTSIDE RECORDS SUMMARY | 2024-07-22 12:06 | XMS_ITS | Encounter Summary ---
Author Organization [facility] Address [facility] [place] [address] Care Team Providers Care Set Rider Name Role Phone Ying Ortega MD Primary Care Provider Un available Maia Fraser MD Primary Care Provider [phone] Reason for Visit * Reason Comments E-prescribe Rx Request Encounter Details Date Type Department Care Team Description 02/11/2017 Refill Medicine/Pediatrics - [address] [phone] Hira Tong PA-C E-prescribe Rx Request Social History Tobacco Use Types Packs/Day Years Used Date Smoking Tobacco: Heavy Smoker Cigarettes 0.5 25 Last attempted t o quit: 07/30/2016 Smokeless Tobacco: Never Alcohol Use Standard Drinks/Week Comments No 0 (1 standard drink = 0.6 oz pur e alcohol) Sex Assigned at Date Recorded Not on file documented as of this encounter Miscellaneous Notes * Telephone Encounter - Jessica Zeng M.A. - 02/11/2017 3:03 PM EDT Per ov note 01/22/17: PLAN 1. Plantar fasciitis of right foot. Informed patient symptoms are likely secondary to plantar fasciitis. Patient information on condition given. She will start taking clinoril she has at home. Encouraged patient to rest the foot, apply ice/heat multiple times throughout the day. Also informed her she can wear foot splints at night while she is sleeping to gently stretch the plantar fascia. She was given plantar fascia exercises to perform. Patient will f/u in 2 weeks if pain persists or worsens. Lab Results Component Value Date NA 140 11/21/2016 K 5.0 11/21/2016 CO2 27.4 11/21/2016 CL 102 11/21/2016 BUN 15 11/21/2016 CREAT 0.8 11/21/2016 GLU 84 11/21/2016 ALB 4.4 11/21/2016 SGOT 9 11/21/2016 SGPT 12 11/21/2016 TBILI 0.4 11/21/2016 ALKPHOS 81 11/21/2016 TP 6.7 11/21/2016 CA 9.6 11/21/2016 GFR > 60 11/21/2016 * Telephone Encounter - Krupa Corea - 02/11/2017 2:59 PM EDT Patient would like script to be: E-PRESCRIBED/FAXED TO PHARMACY WHEN WAS THE PATIENT'S LAST APPOINTMENT IN ADULT MEDICINE? 01/22/17 WHEN WAS THE LAST TIME THE PATIENT SAW THEIR PCP? Does patient have an upcoming appointment? (THE MEDICATION REQUESTED IS ON THE MED LIST ABOVE) All of the medications requested were on the CURRENT MEDS list Did you check the Pharmacy information above?: YES Patient wants: 90 -day supply Is this a mail order prescription request ? NO Patients current insurance carrier is: Payor: [employer] / Plan: POS $[address] [facility] / Product Type: POS [id number] documented in this encounter Plan of Treatment Not on file documented as of this encounter Visit Diagnoses Not on filedocumented in this encounter Care Teams Set Rider Relationship Specialty Start Date End Date Ying Ortega MD PCP - General 08/14/08 09/12/21 Maia Fraser MD [address] [place] [address] PCP - General Internal Medicine 09/13/21 documented as of this encounter
--- OUTSIDE RECORDS SUMMARY | 2024-07-22 12:06 | XMS_ITS | Encounter Summary ---
Author Organization [facility] Address [address] [place] [address] Care Team Providers Care Sexual Assault Nurse Name Role Phone Ying Ortega MD Primary Care Provider Un available Maia Fraser MD Primary Care Provider [phone] Encounter Details Date Type Department Care Team Description 05/04/2013 Fingerprint Technician Report Medical Records [address] [place] [address] Padmaja Plaumbo MD Social History Tobacco Use Types Packs/Day [...] on filedocumented in this encounter Care Teams Sexual Assault Nurse Relationship Specialty Start Date End Date Ying Ortega MD PCP - General 08/14/08 09/12/21 Maia Fraser MD [address] [place] [address] PCP - General Internal Medicine 09/13/21 documented as of this encounter
--- OUTSIDE RECORDS SUMMARY | 2024-07-22 12:06 | XMS_ITS | Encounter Summary ---
Author Organization [facility] Address [address] [place] [address] Care Team Providers Care Educational Audiologist Name Role Phone Ying Ortega MD Primary Care Provider Un available Maia Fraser MD Primary Care Provider [phone] Encounter Details Date Type Department Care Team Description 03/11/2012 Acoustical Tile Drill Press Operator Report Medical Records [address] [place] [address] Chris Michael Social History Tobacco Use Types [...] on filedocumented in this encounter Care Teams Educational Audiologist Relationship Specialty Start Date End Date Ying Ortega MD PCP - General 08/14/08 09/12/21 Maia Fraser MD [address] [place] [address] PCP - General Internal Medicine 09/13/21 documented as of this encounter
--- OUTSIDE RECORDS SUMMARY | 2024-07-22 12:06 | XMS_ITS | Encounter Summary ---
Author Organization [facility] Address [facility] [place] [address] Care Team Providers Care Advance Agent Name Role Phone Ying Ortega MD Primary Care Provider Un available Maia Fraser MD Primary Care Provider [phone] Encounter Details Date Type Department Care Team Description 02/02/2013 INSPECTOR TESTER SORTER/Mass[place] Report Medical Records [address] [place] [address] Abstract, Provider Social History Tobacco Use Types [...] on filedocumented in this encounter Care Teams Advance Agent Relationship Specialty Start Date End Date Ying Ortega MD PCP - General 08/14/08 09/12/21 Maia Fraser MD [address] [place] [address] PCP - General Internal Medicine 09/13/21 documented as of this encounter
--- OUTSIDE RECORDS SUMMARY | 2024-07-22 12:06 | XMS_ITS | Encounter Summary ---
Author Organization [facility] Address [address] [place] [address] Care Team Providers Care Game Protector Name Role Phone Ying Ortega MD Primary Care Provider Un available Maia Fraser MD Primary Care Provider Encounter Details Date Type Department Care Team Description 05/06/2013 Receiving Manager Report Medical Records [address] [place] [address] Padmaja Palumbo MD Social History Tobacco Use [...] on filedocumented in this encounter Care Teams Game Protector Relationship Specialty Start Date End Date Ying Ortega MD PCP - General 08/14/08 09/12/21 Maia Fraser MD [address] [place] [address] PCP - General Internal Medicine 09/13/21 documented as of this encounter
--- OUTSIDE RECORDS SUMMARY | 2024-07-22 12:06 | XMS_ITS | Encounter Summary ---
Author Organization [facility] Address [facility] [place] [address] Care Team Providers Care Foundation Engineer Name Role Phone Ying Ortega MD Primary Care Provider Un available Maia Fraser MD Primary Care Provider Encounter Details Date Type Department Care Team Description 02/06/2016 Elder Counselor Report Medical Records [address] [place] [address] Jonathan Rodriguez MD Social History Tobacco Use [...] on filedocumented in this encounter Care Teams Foundation Engineer Relationship Specialty Start Date End Date Ying Ortega MD PCP - General 08/14/08 09/12/21 Maia Fraser MD [address] [place] [address] PCP - General Internal Medicine 09/13/21 documented as of this encounter
--- OUTSIDE RECORDS SUMMARY | 2024-07-22 12:06 | XMS_ITS | Encounter Summary ---
Author Organization [facility] Address [address] [place] [address] Care Team Providers Care Ibm Mainframe Developer Name Role Phone Ying Ortega MD Primary Care Provider Un available Maia Fraser MD Primary Care Provider [phone] Encounter Details Date Type Department Care Team Description 05/08/2014 Fish Roe Processor Report Medical Records [address] [place] [address] Padmaja Palumbo MD Social History Tobacco Use [...] on filedocumented in this encounter Care Teams Ibm Mainframe Developer Relationship Specialty Start Date End Date Ying Ortega MD PCP - General 08/14/08 09/12/21 Maia Fraser MD [address] [place] [address] PCP - General Internal Medicine 09/13/21 documented as of this encounter
--- OUTSIDE RECORDS SUMMARY | 2024-07-22 12:06 | XMS_ITS | Encounter Summary ---
Author Organization [facility] Address [address] [place] [address] Care Team Providers Care Data Scientist Name Role Phone Ying Ortega MD Primary Care Provider Un available Maia Fraser MD Primary Care Provider [phone] Encounter Details Date Type Department Care Team Description 02/10/2011 Hospital Medical Records [address] [place] [address] Eliseo Bradley MD [address] [place] [phone] Social History Tobacco Use Types Packs/Day [...] on filedocumented in this encounter Care Teams Data Scientist Relationship Specialty Start Date End Date Ying Ortega MD PCP - General 08/14/08 09/12/21 Maia Fraser MD [address] [place] [address] PCP - General Internal Medicine 09/13/21 documented as of this encounter
--- OUTSIDE RECORDS SUMMARY | 2024-07-22 12:06 | XMS_ITS | Encounter Summary ---
Author Organization [facility] Address [address] [place] [address] Care Team Providers Care Traveling Passenger Agent Name Role Phone Ying Ortega MD Primary Care Provider Un available Maia Fraser MD Primary Care Provider [phone] Encounter Details Date Type Department Care Team Description 05/08/2014 Ladle Patcher Report Medical Records [address] [place] [address] Padmaja Palumbo MD Social History Tobacco Use [...] on filedocumented in this encounter Care Teams Traveling Passenger Agent Relationship Specialty Start Date End Date Ying Ortega MD PCP - General 08/14/08 09/12/21 Maia Fraser MD [address] [place] [address] PCP - General Internal Medicine 09/13/21 documented as of this encounter
--- OUTSIDE RECORDS SUMMARY | 2024-07-22 12:06 | XMS_ITS | Encounter Summary ---
Author Organization [facility] Address [address] [place] [address] Care Team Providers Care Womens Volleyball Coach Name Role Phone Ying Ortega MD Primary Care Provider Un available Maia Fraser MD Primary Care Provider [phone] Encounter Details Date Type Department Care Team Description 05/05/2013 Release of Information Medical Records [address] [place] [address] Abstract, Provider Social History Tobacco Use Types [...] on filedocumented in this encounter Care Teams Womens Volleyball Coach Relationship Specialty Start Date End Date Ying Ortega MD PCP - General 08/14/08 09/12/21 Maia Fraser MD [address] [place] [address] PCP - General Internal Medicine 09/13/21 documented as of this encounter
--- OUTSIDE RECORDS SUMMARY | 2024-07-22 12:06 | XMS_ITS | Encounter Summary ---
Author Organization [facility] Address [address] [place] [address] Care Team Providers Care Expressive Therapist Name Role Phone Ying Ortega MD Primary Care Provider Un available Maia Fraser MD Primary Care Provider [phone] Encounter Details Date Type Department Care Team Description 11/16/2014 Engineering Model Maker Report Medical Records [address] [place] [address] Drake Todd MD Social History Tobacco Use Types Packs/Day [...] on filedocumented in this encounter Care Teams Expressive Therapist Relationship Specialty Start Date End Date Ying Ortega MD PCP - General 08/14/08 09/12/21 Maia Fraser MD [address] [place] [address] PCP - General Internal Medicine 09/13/21 documented as of this encounter
--- OUTSIDE RECORDS SUMMARY | 2024-07-22 12:06 | XMS_ITS | Encounter Summary ---
Author Organization [facility] Address [address] [place] [address] Care Team Providers Care Client Retention Specialist Name Role Phone Ying Ortega MD Primary Care Provider Un available Maia Fraser MD Primary Care Provider Encounter Details Date Type Department Care Team Description 02/04/2021 Ceramic Coater Report Medical Records [address] [place] [address] Abstract, Provider Social History Tobacco Use Types [...] on filedocumented in this encounter Care Teams Client Retention Specialist Relationship Specialty Start Date End Date Ying Ortega MD PCP - General 08/14/08 09/12/21 Maia Fraser MD [address] [place] [address] PCP - General Internal Medicine 09/13/21 documented as of this encounter
--- OUTSIDE RECORDS SUMMARY | 2024-07-22 12:06 | XMS_ITS | Encounter Summary ---
Author Organization [facility] Address [address] [place] [address] Care Team Providers Care Dry Sand Molder Name Role Phone Ying Ortega MD Primary Care Provider Un available Maia Fraser MD Primary Care Provider Encounter Details Date Type Department Care Team Description 03/03/2019 Hospital Medical Records [address] [place] [address] Cheng Bond MD Social History Tobacco Use [...] on filedocumented in this encounter Care Teams Dry Sand Molder Relationship Specialty Start Date End Date Ying Ortega MD PCP - General 08/14/08 09/12/21 Maia Fraser MD [address] [place] [address] PCP - General Internal Medicine 09/13/21 documented as of this encounter
--- OUTSIDE RECORDS SUMMARY | 2024-07-22 12:06 | XMS_ITS | Encounter Summary ---
Author Organization [facility] Address [address] [place] [address] Care Team Providers Care Lap Machine Tender Name Role Phone Ying Ortega MD Primary Care Provider Un available Maia Fraser MD Primary Care Provider Encounter Details Date Type Department Care Team Description 02/28/2015 Hospital Medical Records [address] [place] [address] Tri Lopez MD Social History Tobacco Use Types Packs/Day [...] on filedocumented in this encounter Care Teams Lap Machine Tender Relationship Specialty Start Date End Date Ying Ortega MD PCP - General 08/14/08 09/12/21 Maia Fraser MD [address] [place] [address] PCP - General Internal Medicine 09/13/21 documented as of this encounter
== END 2024-07-22 11:13 | disposition home or self-care (01) ==
PROVIDERS: PCP Internal Medicine; Visit Provider Internal Medicine
DX: G89.4 Chronic pain syndrome (principal); F33.41 Major depressive disorder, recurrent, in partial remission; K21.9 Gastro-esophageal reflux disease without esophagitis

== ENCOUNTER → 2024-07-22 10:33 | Outpatient (BNVA) | payer OTHER, SELFPAY | PROVIDERS: PCP Internal Medicine; Visit Provider Internal Medicine | DX: K21.9 Gastro-esophageal reflux disease without esophagitis (principal); G89.4 Chronic pain syndrome; F33.41 Major depressive disorder, recurrent, in partial remission; M81.0 Age-related osteoporosis without current pathological fracture; Z79.899 Other long term (current) drug therapy | CPT/HCPCS: 99212 ==

== ENCOUNTER 2024-07-25 08:52 | Outpatient (REF) | payer OTHER, SELFPAY ==
--- NOTE | ~2024-07-25 | US_ITS ---
EXAMINATION: MM DIAGNOSTIC DIGITAL BREAST TOMOSYNTHESIS, RIGHT Limited right breast ultrasound. CLINICAL INFORMATION: Call back from screening for asymmetry in the superior and lateral right breast. COMPARISON: Mammography: Comparison is made with available priors on PACS. TECHNIQUE: Digital breast tomosynthesis is performed in both the craniocaudal and mediolateral oblique views along with computer-aided detection (CAD). Synthesized 2D images are generated from the tomosynthesis. Limited right breast ultrasound. FINDINGS: The breasts are heterogeneously dense, which may obscure small masses (ACR BI-RADS breast composition Category c). Asymmetry in the superior breast on MLO view does not persist on additional imaging projections. Asymmetry in the lateral right breast on CC view does not persist on additional imaging projections. No suspicious calcifications or other abnormal findings. Targeted color Doppler ultrasound scanning from 7-1 o'clock demonstrates normal fibroglandular breast tissue. Is no sonographic abnormality. US/US breast RT limited mamm only IMPRESSION: No mammographic or sonographic evidence of malignancy. ASSESSMENT: BI-RADS BI-RADS 1 - Negative RECOMMENDATION: 1 year F/U Results were provided to the patient at time of visit by the technologist. This patient's information was entered into a reminder system with a target due date for their next mammogram. Electronically signed by: Mira Mckinney DO 07/25/2024 12:06 PM JASPAL
== END 2024-07-25 08:53 | disposition home or self-care (01) ==
LOC: HO.MAMMO 08:52
PROVIDERS: PCP Internal Medicine; Visit Provider Internal Medicine
DX: N64.89 Other specified disorders of breast (principal)
CPT/HCPCS: 76642; 77061; 77065

== ENCOUNTER → 2024-07-25 09:00 | Outpatient (BNV) | payer OTHER, SELFPAY | PROVIDERS: PCP Internal Medicine; Visit Provider Internal Medicine | DX: R92.331 Mammographic heterogeneous density, right breast (principal) | CPT/HCPCS: 76642; 77061; 77065 ==

== ENCOUNTER 2024-08-17 12:23 | Outpatient (REF) | payer OTHER, SELFPAY ==
--- NOTE | ~2024-08-17 | US_ITS ---
CLINICAL HISTORY: R10.9 - Unspecified abdominal pain US pelvis limited Comparison: None Findings: Sonographic evaluation in the area of clinical concern right lower quadrant abdominal wall demonstrates an incidental subcutaneous lipoma measuring 4 x 3 x 7 mm fairly superficial. This is not palpable. No other abdominal wall masses, hernias or lymphadenopathy was demonstrated. Impression: 1. No sonographic correlate to the area of clinical concern right lower quadrant abdominal wall 2. CT correlation may be of further diagnostic value This document has been electronically signed by: Delon Jasso MD on 08/18/2024 12:55:39
== END 2024-08-17 12:24 | disposition home or self-care (01) ==
LOC: HO.US 12:23
PROVIDERS: PCP Internal Medicine; Visit Provider Surgery
DX: R10.9 Unspecified abdominal pain (principal)
CPT/HCPCS: 76857

== ENCOUNTER → 2024-08-17 12:25 | Outpatient (BNV) | payer OTHER, SELFPAY | PROVIDERS: PCP Internal Medicine; Visit Provider Radiology Diagnostic Radiology | DX: R10.9 Unspecified abdominal pain (principal) | CPT/HCPCS: 76857 ==

== ENCOUNTER 2024-08-30 14:10 | Outpatient (AMB) | payer OTHER, SELFPAY ==
--- NOTE | 2024-08-30 14:12 | MHC.OFFVIS ---
Intake Visit Reasons: s/p US Intake Note: Patient here s/p Pelvis US on 08-17-2024. Fermenting Cellars Receiver Required: No Accompanied by: Self / Same As Patient Allergies amoxicillin [From Augmentin] Allergy (Verified 06/21/24 11:06) Hives clavulanic acid [From Augmentin] Allergy (Verified 06/21/24 11:06) Hives HPI Comments Details: Patient presents for follow-up regarding her right mid abdominal deeply situated pain. Ultrasound of the area was negative for any obvious pathology. No mass, no hernia. Patient has had multiple x-rays and scans in the past for this. In the meantime, she is tolerating her diet. He is having regular bowel habits. Certain positions aggravate her abdominal wall symptoms. 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 (nsaid) Low back pain Hernia Lipoma of right upper extremity Narcotic abuse ETOH abuse Shoulder pain Depression Surgical History H/O hernia repair S/P excision of lipoma History of carpal tunnel release of both wrists History of partial hysterectomy Family History Father Asthma HTN (hypertension) Hypercholesteremia Cardiovascular disease Clotting disorder Maternal Grandmother Asthma HTN (hypertension) Hypercholesteremia Cardiovascular disease Paternal Grandfather Asthma Hypercholesteremia Leukemia Social History Housing: House Alcohol intake: former Patient Tobacco Use Status: Former Tobacco user Cigarette Packs Per Day: 1 Years Smoked: 43 quit 07/2023 e-Cigarette/Vaping Use: Never Used Second Hand Smoke Exposure: No Substance Use Type: Marijuana service: No Current occupational status: unemployed Cognitive needs: No Hearing needs: No Vision needs: No Physical Exam GI Other: Abdomen moderately corpulent. Again on exam benign. No obvious hernias or defects demonstrated abdominal wall or groin. Assessment & Plan Assessment & Plan (1) Abdominal wall pain: Code(s): R10.9 - Unspecified abdominal pain Category: Surgical (2) Right lower quadrant abdominal pain: Code(s): R10.31 - Right lower quadrant pain Category: Surgical Plan Unfortunately, no obvious source of pathology was demonstrated. Patient was states that her medical doctor is ordering an MRI of her abdominal wall and current plan is to await these results indirect further therapy based on findings. No acute surgical interventions planned at the present time. Patient will contact me post MRI. All questions answered. Coding Level of Care Code Est Pt Level 4 (05153) Diagnoses Abdominal wall pain R10.9 Right lower quadrant abdominal pain R10.31
--- OUTSIDE RECORDS SUMMARY | 2024-08-30 17:17 | XMS_ITS | Encounter Summary ---
Author Organization [facility] Address [employer] [place] [address] Care Team Providers Care Traffic Signal Supervisor Maintenance Name Role Phone Ying Ortega MD Primary Care Provider Un available Maia Fraser MD Primary Care Provider [phone] Encounter Details Date Type Department Care Team Description 02/02/2013 HEDGE FUND MANAGER/MassPat Report Medical Records [address] [place] [address] Abstract, Provider Social History Tobacco Use Types [...] on filedocumented in this encounter Care Teams Traffic Signal Supervisor Maintenance Relationship Specialty Start Date End Date Ying Ortega MD PCP - General 08/14/08 09/12/21 Maia Fraser MD [address] [place] [address] PCP - General Internal Medicine 09/13/21 documented as of this encounter
--- OUTSIDE RECORDS SUMMARY | 2024-08-30 17:17 | XMS_ITS | Encounter Summary ---
Author Organization [facility] Address [address] [place] [address] Care Team Providers Care Envelope Addresser Name Role Phone Ying Ortega MD Primary Care Provider Un available Maia Fraser MD Primary Care Provider + [phone] Reason for Visit * Reason Onset Date Comments refill request 10/27/2011 Encounter Details Date Type Department Care Team Description 10/27/2011 Refill Medicine/Pediatrics - [address] [phone] Ying Ortega MD refill request Social History Tobacco Use Types Packs/Day Years Used Date Smoking Tobacco: Every Day Cigarettes 1.5 25 Smokeless Tobacco: Never Alcohol Use Standard Drinks/Week Comments No 0 (1 standard drink = 0.6 oz pur e alcohol) Sex Assigned at Date Recorded Not on file documented as of this encounter Miscellaneous Notes * Telephone Encounter - Barb Hua Rn - 10/27/2011 2:39 PM EDT Script to pharmacy for flexeril. * Telephone Encounter - TROY Craig - 10/27/2011 2:34 PM EDT Ordering Flexeril, ok for patient to continue on this, only thing that helps with shoulder pain which is being worked up by ortho. * Telephone Encounter - Jessica Zeng M.A. - 10/27/2011 1:42 PM EDT Last ov 10/23/11. Per ov note: Will continue with Flexeril and use NSAID for the pain. per below, pt stating that refill was to be done at time of ov. * Telephone Encounter - Thien Stuart - 10/27/2011 1:19 PM EDT WHEN WAS THE PATIENT'S LAST APPOINTMENT IN ADULT MEDICINE? 10/23/11 WHEN WAS THE LAST TIME THE PATIENT SAW THEIR PCP? 03/06/11 Does patient have an upcoming appointment? NO- patient states that rx was not received by the pharmacy, Safia was to do refill at appt on 10/23/11 (THE MEDICATION REQUESTED IS ON THE MED LIST ABOVE) All of the medications requested were on the CURRENT MEDS list Did you check the Pharmacy information above?: YES Patient wants: 30 -day supply Is this a mail order prescription request ? NO Indicate how soon the patient needs the script: BY THE END OF THE DAY Patient would like script to be: E-PRESCRIBED/FAXED TO PHARMACY If the patients Provider is not in tell the patient that the covering provider will get the request. Patients current insurance carrier is: Payor: [employer] Plan: POS $12 [facility] [id number] Product Type: POS [id number] documented in this encounter Plan of Treatment Not on file documented as of this encounter Visit Diagnoses Not on filedocumented in this encounter Care Teams Envelope Addresser Relationship Specialty Start Date End Date Ying Ortega MD PCP - General 08/14/08 09/12/21 Maia Fraser MD [address] [place] [address] PCP - General Internal Medicine 09/13/21 documented as of this encounter
--- OUTSIDE RECORDS SUMMARY | 2024-08-30 17:17 | XMS_ITS | Encounter Summary ---
Author Organization [facility] Address [address] [place] [address] Care Team Providers Care Biodiesel Engine Specialist Name Role Phone Ying Ortega MD Primary Care Provider Un available Maia Fraser MD Primary Care Provider + [phone] Encounter Details Date Type Department Care Team Description 01/31/2015 Orders Only General Surgery [address] [place] [address] Tri Lopez MD Lipoma of unspecified site (Primary Dx) Social History Tobacco Use Types Packs/Day Years [...] on file documented as of this encounter Results * (ABNORMAL) BASIC METABOLIC PANEL (02/19/2015 11:07 AM EDT) [facility] Signature GLUCOSE 59(L) 70 - 100 mg/dL 02/19/2015 2:16 PM EDT [facility] Comment: Reference range applicable to fasting specimens only Based on recommendations from the ADA and AACE, the fasting glucose reference range has been changed to 70-100 mg/dL. ??This change is effective October 08, 2009 BUN 14 5 - 25 mg/dL 02/19/2015 2:16 PM EDT [facility] CREAT 0.9 0.7 - 1.5 mg/dL 02/19/2015 2:16 PM EDT [facility] GFR > 60 >60 02/19/2015 2:16 PM EDT [facility] Comment: If patient is -[place], multiply result by 1.21 Chronic Kidney Disease: < 60 ml/min/1.73 square meters Kidney Failure: < 15 ml/min/1.73 square meters Sodium 142 133 - 145 mEq/L 02/19/2015 2:16 PM EDT [facility] Potassium 4.4 3.5 - 5.5 mEq/L 02/19/2015 2:16 PM EDT [facility] Chloride 100 96 - 108 mEq/L 02/19/2015 2:16 PM EDT [facility] CO2 26.9 21.0 - 32.0 mEq/L 02/19/2015 2:16 PM EDT [facility] CALCIUM 9.7 8.5 - 10.5 mg/dL 02/19/2015 2:16 PM EDT [facility] 02/19/2015 11:0 7 AM EDT 02/19/2015 11:08 AM EDT Tri Lopez MD LAB Performing Organization Address [facility] de Phone Number [address] * THROMBOPLASTIN TIME, PARTIAL (02/19/2015 11:07 AM EDT) PTT 35.4 24.1 - 37.1 SEC 02/19/2015 12:11 PM T [facility] 02/19/2015 11:0 7 AM EDT 02/19/2015 11:08 AM EDT Tri Lopez MD LAB Performing Organization Address [facility] de Phone Number [address] * PROTHROMBIN TIME (02/19/2015 11:07 AM EDT) PT 15.0 11.6 - 15.6 SEC 02/19/2015 12:43 PM T [facility] Comment: Please note adjusted PT(sec)normal reference range ?? effective 01/23/15. INR 1.16 02/19/2015 12:43 PM EDT [facility] 02/19/2015 11:0 7 AM EDT 02/19/2015 11:08 AM EDT Tri Lopez MD LAB [facility] [address] [facility] * (ABNORMAL) CBC (AUTO DIFF PLATELET) (02/19/2015 11:07 AM EDT) WBC 7.7 4.8 - 10.8 x10-3 02/19/2015 11:25 AM EDT [facility] RBC 5.1(H) 3.8 - 4.8 x10-6 02/19/2015 11:25 AM EDT [facility] HGB 14.4 11.5 - 16.0 g/dl 02/19/2015 11:25 AM EDT [facility] HCT 43.0 35 - 47 % 02/19/2015 11:25 AM EDT [facility] MCV 84.8 79 - 98 fl 02/19/2015 11:25 AM EDT [facility] MCH 28.4 27 - 32 pg 02/19/2015 11:25 AM EDT [facility] MCHC 33.5 32 - 37 g/dl 02/19/2015 11:25 AM EDT [facility] RDW 12.6 11 - 15 % 02/19/2015 11:25 AM EDT [facility] PLT COUNT 247 130 - 400 x10-3 02/19/2015 11:25 AM EDT [facility] MEAN PLATELET VOLUME 9.0 7 - 11 fl 02/19/2015 11:25 AM EDT [facility] NEUT % 54.0 41 - 85 % 02/19/2015 11:25 AM EDT [facility] LYMPH % 38.1 15 - 48 % 02/19/2015 11:25 AM EDT [facility] MONO % 5.4 0 - 12 % 02/19/2015 11:25 AM EDT [facility] EOS % 2.2 0 - 5 % 02/19/2015 11:25 AM EDT [facility] BASO % 0.3 0 - 2 % 02/19/2015 11:25 AM EDT [facility] 02/19/2015 11:0 7 AM EDT 02/19/2015 11:08 AM EDT Tri Lopez MD LAB Performing Organization Address [facility] Co de Phone Number [facility] [address] [facility] * CHEST X-RAY, TWO VIEWS (02/19/2015 10:57 AM EDT) 02/19/2015 11:2 0 AM EDT Impressions [facility] - 02/19/2015 11:20 AM EDT IMPRESSION: ? No acute cardiopulmonary pathology. Narrative [facility] - 02/19/2015 11:20 AM EDT CHEST, TWO VIEWS HISTORY: ??Preoperative exam Technique: Frontal and lateral views of the chest. Prior study: Not available. FINDINGS: ? The lungs are clear. No pleural effusion is seen. No pneumothorax is seen. The cardiomediastinal silhouette is within normal limits. No acute or aggressive appearing bony abnormalities are seen. Procedure Note Jasmin Ellsworth MD - 02/19/2015 CHEST, TWO VIEWS HISTORY: Preoperative exam Technique: Frontal and lateral views of the chest. Prior study: Not available. FINDINGS: The lungs are clear. No pleural effusion is seen. No pneumothorax is seen.The cardiomediastinal silhouette is within normal limits. No acute oraggressive appearing bony abnormalities are seen. IMPRESSION: No acute cardiopulmonary pathology. Tri Lopez MD RADIOLOGY Performing Organization Address City/[facility] Co de Phone Number [facility] documented in this encounter Visit Diagnoses Diagnosis Lipoma of unspecified site- Primary Lipoma of unspecified site documented in this encounter Care Teams Biodiesel Engine Specialist Relationship Specialty Start Date End Date Ying Ortega MD PCP - General 08/14/08 09/12/21 Maia Fraser MD [address] [place] [address] PCP - General Internal Medicine 09/13/21 documented as of this encounter
--- OUTSIDE RECORDS SUMMARY | 2024-08-30 17:17 | XMS_ITS | Encounter Summary ---
Author Organization [facility] Address [address] [place] [address] Care Team Providers Care Septic Tank Cleaner Name Role Phone Ying Ortega MD Primary Care Provider Un available Maia Fraser MD Primary Care Provider Encounter Details Date Type Department Care Team Description 03/23/2012 Mapping Specialist Report Medical Records [address] [place] [address] Chris Michael Social History Tobacco Use Types [...] on filedocumented in this encounter Care Teams Septic Tank Cleaner Relationship Specialty Start Date End Date Ying Ortega MD PCP - General 08/14/08 09/12/21 Maia Fraser MD [address] [place] [phone] PCP - General Internal Medicine 09/13/21 documented as of this encounter
--- OUTSIDE RECORDS SUMMARY | 2024-08-30 17:17 | XMS_ITS | Encounter Summary ---
Author Organization [facility] Address [address] [place] [address] Care Team Providers Care Economic Geographer Name Role Phone Ying Ortega MD Primary Care Provider Un available Maia Fraser MD Primary Care Provider Encounter Details Date Type Department Care Team Description 2012 Manager Convention Report Medical Records [address] [place] [address] Chris Michael Social History Tobacco Use Types [...] on filedocumented in this encounter Care Teams Economic Geographer Relationship Specialty Start Date End Date Ying Ortega MD PCP - General 08/14/08 09/12/21 Maia Fraser MD [address] [place] [id number] PCP - General Internal Medicine 09/13/21 documented as of this encounter
--- OUTSIDE RECORDS SUMMARY | 2024-08-30 17:17 | XMS_ITS | Encounter Summary ---
Author Organization [facility] Address [address] [place] [address] Care Team Providers Care Leisure Studies Professor Name Role Phone Ying Ortega MD Primary Care Provider Un available Maia Fraser MD Primary Care Provider Encounter Details Date Type Department Care Team Description 03/11/2012 Risk Management Internship Report Medical Records [address] [place] [address] Chris Michael Social History Tobacco Use Types [...] on filedocumented in this encounter Care Teams Leisure Studies Professor Relationship Specialty Start Date End Date Ying Ortega MD PCP - General 08/14/08 09/12/21 Maia Fraser MD [address] [place] [phone] PCP - General Internal Medicine 09/13/21 documented as of this encounter
--- OUTSIDE RECORDS SUMMARY | 2024-08-30 17:17 | XMS_ITS | Encounter Summary ---
Author Organization [facility] Address [facility] [place] [address] Care Team Providers Care Still Runner Name Role Phone Ying Ortega MD Primary Care Provider Un available Maia Fraser MD Primary Care Provider [phone] Encounter Details Date Type Department Care Team Description 02/06/2016 Slate Mixer Report Medical Records [address] [place] [address] Jonathan Rodriguez MD Social History Tobacco Use [...] on filedocumented in this encounter Care Teams Still Runner Relationship Specialty Start Date End Date Ying Ortega MD PCP - General 08/14/08 09/12/21 Maia Fraser MD [address] [place] [id number] PCP - General Internal Medicine 09/13/21 documented as of this encounter
--- OUTSIDE RECORDS SUMMARY | 2024-08-30 17:17 | XMS_ITS | Encounter Summary ---
Author Organization [facility] Address [address] [place] [address] Care Team Providers Care Bindery Library Technical Assistant Name Role Phone Ying Ortega MD Primary Care Provider Un available Maia Fraser MD Primary Care Provider [phone] Encounter Details Date Type Department Care Team Description 06/06/2014 Transfer Records Medical Records [address] [place] [address] Abstract, Provider Social History Tobacco Use Types [...] on filedocumented in this encounter Care Teams Bindery Library Technical Assistant Relationship Specialty Start Date End Date Ying Ortega MD PCP - General 08/14/08 09/12/21 Maia Fraser MD [address] [place] [id number] PCP - General Internal Medicine 09/13/21 documented as of this encounter
--- OUTSIDE RECORDS SUMMARY | 2024-08-30 17:17 | XMS_ITS | Encounter Summary ---
Author Organization [facility] Address [address] [place] [address] Care Team Providers Care Remodeler Name Role Phone Ying Ortega MD Primary Care Provider Un available Maia Fraser MD Primary Care Provider [phone] Encounter Details Date Type Department Care Team Description 11/14/2011 Saw Maker Report Medical Records [address] [place] [address] Carlos Loja PA-C Social History Tobacco Use Types Packs/Day [...] on filedocumented in this encounter Care Teams Remodeler Relationship Specialty Start Date End Date Ying Ortega MD PCP - General 08/14/08 09/12/21 Maia Fraser MD [address] [place] [id number] PCP - General Internal Medicine 09/13/21 documented as of this encounter
--- OUTSIDE RECORDS SUMMARY | 2024-08-30 17:17 | XMS_ITS | Encounter Summary ---
Author Organization [facility] Address [address] [place] [address] Care Team Providers Care Practical Nurse Name Role Phone Ying Ortega MD Primary Care Provider Un available Maia Fraser MD Primary Care Provider [phone] Encounter Details Date Type Department Care Team Description 03/03/2019 Hospital Medical Records [address] [place] [address] Cheng Bond MD Social History Tobacco Use [...] on filedocumented in this encounter Care Teams Practical Nurse Relationship Specialty Start Date End Date Ying Ortega MD PCP - General 08/14/08 09/12/21 Maia Fraser MD [address] [place] [id number] PCP - General Internal Medicine 09/13/21 documented as of this encounter
--- OUTSIDE RECORDS SUMMARY | 2024-08-30 17:17 | XMS_ITS | Encounter Summary ---
Author Organization [facility] Address [address] [place] [address] Care Team Providers Care Furniture Delivery Driver Name Role Phone Ying Ortega MD Primary Care Provider Un available Maia Fraser MD Primary Care Provider Encounter Details Date Type Department Care Team Description 05/04/2013 Waiter/Waitress Counter Report Medical Records [address] [place] [address] Padmaja Palumbo MD Social History Tobacco Use [...] on filedocumented in this encounter Care Teams Furniture Delivery Driver Relationship Specialty Start Date End Date Ying Ortega MD PCP - General 08/14/08 09/12/21 Maia Fraser MD [address] [place] [id number] PCP - General Internal Medicine 09/13/21 documented as of this encounter
--- OUTSIDE RECORDS SUMMARY | 2024-08-30 17:17 | XMS_ITS | Encounter Summary ---
Author Organization [facility] Address [address] [place] [address] Care Team Providers Care Head Swamper Name Role Phone Ying Ortega MD Primary Care Provider Un available Maia Fraser MD Primary Care Provider [phone] Encounter Details Date Type Department Care Team Description 07/19/2020 Telephone Medicine/Pediatrics - [address] [phone] Ivy Cabrera PA-C [address] [place] [address] Social History Tobacco Use Types Packs/Day Years [...] to schedule next Consult with Joshua Sibley [facility] Pharmacology Clinician on 10/15 @ 1pm. * Telephone Encounter - Araceli Garcia - 07/19/2020 11:51 AM EST Left message to have patient return call to [facility] Pharmacy clinic to schedule a Consult with [...] on filedocumented in this encounter Care Teams Head Swamper Relationship Specialty Start Date End Date Ying Ortega MD PCP - General 08/14/08 09/12/21 Maia Fraser MD [address] [place] [id number] PCP - General Internal Medicine 09/13/21 documented as of this encounter
--- OUTSIDE RECORDS SUMMARY | 2024-08-30 17:17 | XMS_ITS | Encounter Summary ---
Author Organization [facility] Address [address] [place] [address] Care Team Providers Care Provisioning Analyst Name Role Phone Ying Ortega MD Primary Care Provider Un available Maia Fraser MD Primary Care Provider [phone] Encounter Details Date Type Department Care Team Description 05/06/2013 Market News Reporter Report Medical Records [address] [place] [address] Padmaja Palumbo MD Social History Tobacco Use [...] on filedocumented in this encounter Care Teams Provisioning Analyst Relationship Specialty Start Date End Date Ying Ortega MD PCP - General 08/14/08 09/12/21 Maia Fraser MD [address] [place] [id number] PCP - General Internal Medicine 09/13/21 documented as of this encounter
--- OUTSIDE RECORDS SUMMARY | 2024-08-30 17:17 | XMS_ITS | Encounter Summary ---
Author Organization [facility] Address [address] [place] [address] Care Team Providers Care Staffing Coordinator Name Role Phone Ying Ortega MD Primary Care Provider Un available Maia Fraser MD Primary Care Provider [phone] Encounter Details Date Type Department Care Team Description 10/14/2011 Sales Merchandising Specialist Report Medical Records [address] [place] [address] Eliseo Bradley MD [address] [place] [phone] Social History Tobacco Use Types Packs/Day [...] on filedocumented in this encounter Care Teams Staffing Coordinator Relationship Specialty Start Date End Date Ynig Ortega MD PCP - General 08/14/08 09/12/21 Maia Fraser MD [address] [place] [address] PCP - General Internal Medicine 09/13/21 documented as of this encounter
--- OUTSIDE RECORDS SUMMARY | 2024-08-30 17:17 | XMS_ITS | Encounter Summary ---
Author Organization [facility] Address [address] [place] [address] Care Team Providers Care Audiovisual Tech Name Role Phone Ying Ortega MD Primary Care Provider Un available Maia Fraser MD Primary Care Provider Encounter Details Date Type Department Care Team Description 04/08/2021 Grain And Yeast Plants Supervisor Report Medical Records [address] [place] [address] Abstract, Provider Social History Tobacco Use Types [...] on filedocumented in this encounter Care Teams Audiovisual Tech Relationship Specialty Start Date End Date Ying Ortega MD PCP - General 08/14/08 09/12/21 Maia Fraser MD [address] [place] [address] PCP - General Internal Medicine 09/13/21 documented as of this encounter
--- OUTSIDE RECORDS SUMMARY | 2024-08-30 17:17 | XMS_ITS | Encounter Summary ---
Author Organization [facility] Address [address] [place] [address] Care Team Providers Care Service Station Attendant Name Role Phone Ying Ortega MD Primary Care Provider Un available Maia Fraser MD Primary Care Provider [phone] Encounter Details Date Type Department Care Team Description 07/09/2018 Release of Information Medical Records [address] [place] [address] Abstract, Provider Social History Tobacco Use Types [...] on filedocumented in this encounter Care Teams Service Station Attendant Relationship Specialty Start Date End Date Ying Ortega MD PCP - General 08/14/08 09/12/21 Maia Fraser MD [address] [place] [address] PCP - General Internal Medicine 09/13/21 documented as of this encounter
--- OUTSIDE RECORDS SUMMARY | 2024-08-30 17:17 | XMS_ITS | Encounter Summary ---
Author Organization [facility] Address [address] [place] [address] Care Team Providers Care Dredge Runner Name Role Phone Ying Ortega MD Primary Care Provider Un available Maia Fraser MD Primary Care Provider [phone] Encounter Details Date Type Department Care Team Description 05/20/2013 Manager Equity Report Medical Records [address] [place] [address] Padmaja Palumbo MD Social History Tobacco Use [...] on filedocumented in this encounter Care Teams Dredge Runner Relationship Specialty Start Date End Date Ying Ortega MD PCP - General 08/14/08 09/12/21 Maia Fraser MD [address] [place] [id number] PCP - General Internal Medicine 09/13/21 documented as of this encounter
--- OUTSIDE RECORDS SUMMARY | 2024-08-30 17:17 | XMS_ITS | Encounter Summary ---
Author Organization [facility] Address [address] [place] [address] Care Team Providers Care Family Court Registrar Name Role Phone Ying Ortega MD Primary Care Provider Un available Maia Fraser MD Primary Care Provider [phone] Encounter Details Date Type Department Care Team Description 02/10/2011 Hospital Medical Records [address] [place] [address] Eliseo Bradley MD [address] [place] [phone] Social History Tobacco Use Types Packs/Day [...] on filedocumented in this encounter Care Teams Family Court Registrar Relationship Specialty Start Date End Date Ying Ortega MD PCP - General 08/14/08 09/12/21 Maia Fraser MD [address] [place] [address] PCP - General Internal Medicine 09/13/21 documented as of this encounter
--- OUTSIDE RECORDS SUMMARY | 2024-08-30 17:17 | XMS_ITS | Encounter Summary ---
Author Organization [facility] Address [address] [place] [address] Care Team Providers Care Die Assembler Name Role Phone Ying Ortega MD Primary Care Provider Un available Maia Fraser MD Primary Care Provider Encounter Details Date Type Department Care Team Description 06/28/2012 Hospital Medical Records [address] [place] [address] [place] Social History Tobacco Use Types [...] on filedocumented in this encounter Care Teams Die Assembler Relationship Specialty Start Date End Date Ying Ortega MD PCP - General 08/14/08 09/12/21 Maia Fraser MD [address] [place] [address] PCP - General Internal Medicine 09/13/21 documented as of this encounter
== END 2024-08-30 14:18 | disposition home or self-care (01) ==
LOC: HO.HGS 14:10
PROVIDERS: PCP Internal Medicine; Visit Provider Surgery
DX: R10.9 Unspecified abdominal pain (principal); R10.31 Right lower quadrant pain
CPT/HCPCS: 99214

== ENCOUNTER → 2024-08-30 14:10 | Outpatient (BNVA) | payer OTHER, SELFPAY | PROVIDERS: PCP Internal Medicine; Visit Provider Surgery | DX: R10.31 Right lower quadrant pain (principal) | CPT/HCPCS: 99212 ==

== ENCOUNTER 2024-10-24 10:24 | Outpatient (AMB) | payer OTHER, SELFPAY ==
--- NOTE | 2024-10-24 10:35 | MHC.PC.OV ---
Vital Signs 10/24/24 10:39 Height 5 ft 5 in Weight 168 lb 6 oz BMI 28.0 BP 110/88 Blood Pressure Location Rt brachial Position Sitting Respiration 12 Pulse 85 Pulse Source Pulse Oximeter Pulse Oximetry (%) 96 Oxygen Delivery Method Room Air Intake Visit Reasons: 3 month test/us/xray Intake Note: Three month follow up. Possible poison cheo on both legs. Lump on left leg. Hair is still falling out. Had Ct scan done, wants to have MRI done. Dryer Feeder Required: No Allergies amoxicillin [From Augmentin] Allergy (Verified 10/24/24 10:37) Hives clavulanic acid [From Augmentin] Allergy (Verified 10/24/24 10:37) Hives Tobacco use date assessed: 10/24/24 Dental Screening Dental Screen Date: 01/04/24 HPI HPI Comments History of Present Illness Details 54 year old female with a past medical history htn, resolved etoh use, esophageal stricture, thyroid nodules, depression presenting for follow up Psych: Anxiety & Depression: Has tried effexor, sertraline, wellbutrin and propranolol. Was on wellbutrin for years. continues addiction support on suboxone & acamprosate. She does feel like she would benefit from going back on antidepressant/ant-anxiety CV: Previously on BP meds, staying normotensive off. Weight gain when she stopped smoking despite diet and exercise. GI: Reflux, gastritis well controlled on PPI. Has esophageal stricture, gets dilation. Follow with [facility] Dr Bond. Continues to have deep right lower quarant pain. multiple benign u/s. Saw general surgery. MRI ordered MSK: Erosive arthritis, osteoarthritis. Following with Dr Diaz. Upcoming visit. Low back pain, DDD, joint pain, bilateral hands with swelling. On celebrex Endocrine: DXA with osteoporosis: consider treatment with rheumatology. Heme/Onc Neck u/s with LN-indeterminate, stable. She had biopsy which was reassuring Colonoscopy 2018-Dr Bond. 10 year repeat Follows annually with gynecology. s/p partial hysterectomy Mammo 07/2024 ROS see HPI PHYSICAL EXAM: GENERAL: Alert and oriented x 3. NAD EYES: EOMI. Anicteric. HENT: Moist mucous membranes. No scleral icterus. No cervical lymphadenopathy. LUNGS: Clear to auscultation bilaterally. CARDIOVASCULAR: Regular rate and rhythm. No murmur. No JVD. ABDOMEN: Soft, non-tender +bs. TTP RLQ EXTREMITIES: No edema. Non-tender. SKIN: No rashes or lesions. Warm. NEUROLOGIC: No focal neurological deficits. CN II-XII grossly intact PSYCHIATRIC: Cooperative. Appropriate mood and affect [facility] Medical History correction (current) use of non-steroidal anti-inflammatories (nsaid) Low back pain Hernia Lipoma of right upper extremity Narcotic abuse ETOH abuse Shoulder pain Depression Surgical History H/O hernia repair S/P excision of lipoma History of carpal tunnel release of both wrists History of partial hysterectomy Family History Father Asthma HTN (hypertension) Hypercholesteremia Cardiovascular disease Clotting disorder Maternal Grandmother Asthma HTN (hypertension) Hypercholesteremia Cardiovascular disease Paternal Grandfather Asthma Hypercholesteremia Leukemia Social History Housing: House Alcohol intake: former Patient Tobacco Use Status: Former Tobacco user Cigarette Packs Per Day: 1 Years Smoked: 43 quit 07/2023 e-Cigarette/Vaping Use: Never Used Second Hand Smoke Exposure: No Substance Use Type: Marijuana service: No Current occupational status: unemployed Cognitive needs: No Hearing needs: No Vision needs: No Questionnaire Thrive Questionnaire Date Thrive assessed: 07/22/24 DAMIAN-7 AMB Questionnaire DAMIAN-7 Date DAMIAN - 7 assessed: 01/04/24 Source: Developed by Drs. Chad Arteaga, Sofía Garvin, Dre Seymour and colleagues, with an educational ila from [employer]. Physical exam (Primary Care) Vital Signs: Last Vital Signs Pulse 85 10/24/24 10:39 Resp 12 10/24/24 10:39 BP 110/88 10/24/24 10:39 Pulse Ox 96 10/24/24 10:39 Oxygen Delivery Method Room Air 10/24/24 10:39 BMI result Body Mass Index 28.0 Tobacco/Smoking Status: Tobacco use Status Tobacco use date assessed 10/24/24 10/24/24 10:38 Patient Tobacco Use Status Former Tobacco user 10/24/24 10:43 e-Cigarette/Vaping Use Never Used 10/24/24 10:43 Thrive Assessment: Date of Thrive Assessment Date Thrive assessed 07/22/24 10/24/24 10:38 Coding Level of Care Code Est Pt Level 4 (26139) Diagnoses Right lower quadrant abdominal pain R10.31 Overweight (BMI 25.0-29.9) E66.3 Gastroesophageal reflux disease, unspecified whether esophagitis present K21.9 Esophagitis presence: esophagitis presence not specified Erosive (osteo)arthritis M15.4 Assessment & Plan Assessment & Plan (1) Right lower quadrant abdominal pain: Code(s): R10.31 - Right lower quadrant pain Category: Surgical (2) Overweight (BMI 25.0-29.9): Code(s): E66.3 - Overweight Category: Medical (3) GERD (gastroesophageal reflux disease): Code(s): K21.9 - Gastro-esophageal reflux disease without esophagitis Category: Medical Qualifiers: Esophagitis presence: esophagitis presence not specified Qualified Code(s): K21.9 - Gastro-esophageal reflux disease without esophagitis (4) Erosive (osteo)arthritis: Code(s): M15.4 - Erosive (osteo)arthritis Category: Medical Plan Deep right lower quadrant pain-MRI abd/pelvis Depression-start prozac. Aware of potential SSRI SE Osteoporosis-upcoming rheumatology who are also following for RA Orders: Orders MR pelvis wo/w con Today R10.31 - Right lower quadrant pain, R10.9 - Unspecified abdominal pain MR abdomen wo/w con Today R10.31 - Right lower quadrant pain, R10.9 - Unspecified abdominal pain Medications: New fluoxetine Take 1/2 tab oral once daily for 2 weeks then increase to one tablet oral daily 20 mg PO DAILY 90 tabs 3RF Zepbound (tirzepatide (weight loss)) for 4 weeks 2.5 mg (0.5 mL) subcut QWEEK 6 mL 1RF NS E66.3 - Overweight, I10 - Essential (primary) hypertension Refilled Nicoderm CQ (nicotine) 1 patch transdermal DAILY 28 ea 2RF NS F17.200 - Nicotine dependence, unspecified, uncomplicated
[2024-10-24 10:39] VITALS: BP 110/88; PULSE 85; RESP 12; O2SAT 96; BMI 28.0
== END 2024-10-24 11:05 | disposition home or self-care (01) ==
LOC: HO.HMCFM 10:25
PROVIDERS: PCP Internal Medicine; Visit Provider Internal Medicine
DX: R10.31 Right lower quadrant pain (principal); E66.3 Overweight; K21.9 Gastro-esophageal reflux disease without esophagitis; M15.4 Erosive (osteo)arthritis

== ENCOUNTER → 2024-10-24 10:24 | Outpatient (BNVA) | payer OTHER, SELFPAY | PROVIDERS: PCP Internal Medicine; Visit Provider Internal Medicine | DX: K21.9 Gastro-esophageal reflux disease without esophagitis (principal); M15.4 Erosive (osteo)arthritis; L65.9 Nonscarring hair loss, unspecified; I10 Essential (primary) hypertension; F41.9 Anxiety disorder, unspecified; F32.A Depression, unspecified; R10.31 Right lower quadrant pain; E66.3 Overweight; Z68.28 Body mass index [BMI] 28.0-28.9, adult | CPT/HCPCS: 99212 ==

== ENCOUNTER 2024-12-20 11:16 | Outpatient (AMB) | payer OTHER, SELFPAY ==
--- NOTE | 2024-12-20 11:20 | A.OFFVIS_ITS ---
Vital Signs 12/20/24 11:34 Height 5 ft 5 in Weight 168 lb 13.985 oz BMI 28.1 BP 120/80 Blood Pressure Location Lt brachial Position Sitting Pulse 78 Pulse Source Pulse Oximeter Pulse Oximetry (%) 99 Oxygen Delivery Method Room Air Intake Visit Reasons: FOLLOW UP Intake Note: Patient presents for Erosive OA follow up. Allergies amoxicillin (From Augmentin) Allergy (Verified 12/20/24 11:29) Hives clavulanic acid (From Augmentin) Allergy (Verified 12/20/24 11:29) Hives HPI Comments Details: Patient is a 53-year-old female current everyday smoker currently attempting to quit with nicotine patches, osteoporosis on Reclast infusion and erosive osteoarthritis here today for follow up Interval History: Patient last seen 05/2024 - Doing well with the regimen: topical diclofenac, CMC splinting and the celebrex - Saw pain management, rx lidocaine patches Today, - complains of 1st CMC pain on the left - Still using diclofenac gel Rheumatologic History: Erosive OA Lumbar degenerative disease AP spine osteopenia Initial history: 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 Initially she started I am going to be seen with her dad and then has continued the business since he 9 years ago. She has been noticing that she has been having difficulty doing fine movements with her hands over the past year and has also noted locking of her fingers, needing to open them manually. Her orthopedic surgeon's office and was given a steroid injection. She states this helped for about a week but then symptoms returned. Nail she also notes pain in her lower back that has been worsening over the past several months. Inhibiting her ability garden. She denies prolonged morning stiffness, only has about 10-15 minutes. Has a strong family history of osteoarthritis as well as osteoporosis. Of note she had a scan past which showed osteoporosis and she is currently on IV Reclast infusions. Repeat scan here showed osteopenia with FRAX <20/5% Reclast stopped Current Rheumatology Medication(s): Celebrex 100mg bid Topical diclofenac 1% 4 times a day [facility] Medical History longterm (current) use of non-steroidal anti-inflammatories (nsaid) Low back pain Hernia Lipoma of right upper extremity Narcotic abuse ETOH abuse Shoulder pain Depression Surgical History H/O hernia repair S/P excision of lipoma History of carpal tunnel release of both wrists History of partial hysterectomy Family History Father Asthma HTN (hypertension) Hypercholesteremia Cardiovascular disease Clotting disorder Maternal Grandmother Asthma HTN (hypertension) Hypercholesteremia Cardiovascular disease Paternal Grandfather Asthma Hypercholesteremia Leukemia Social History Housing: House Alcohol intake: former Patient Tobacco Use Status: Former Tobacco user Cigarette Packs Per Day: 1 Years Smoked: 43 quit 07/2023 e-Cigarette/Vaping Use: Never Used Second Hand Smoke Exposure: No Substance Use Type: Marijuana service: No Current occupational status: unemployed Cognitive needs: No Hearing needs: No Vision needs: No Review of Systems Const Details: Review of Systems Constitutional: Denies fever, chills, weight loss ENT: Denies vision changes, eye pain or eye redness, dental caries, dry mouth GI: Denies nausea, vomiting, diarrhea, abdominal pain, change in BM Pulm: Denies SOB, BASS, hemoptysis, wheezing Cards: Denies chest pain, palpitations Skin: Denies Raynaud's, rash, nail changes, photosensitivity, BINDERY MACHINE OPERATOR: Denies headaches, weakness, paresthesias, recurrent falls MSK: as per HPI All other systems reviewed and are unremarkable except noted above Physical Exam Exam Exam: Vital signs reviewed Physical Examination CONSTITUITIONAL Patient alert and cooperative. Well appearing and in no apparent painful distress MSK Hands * Right Hand: Able to make a fist. No swelling or tenderness to palpation of these joints. * Left Hand: Able to make a fist. TTP 1st CMC joint * Herbedens nodes noted bilaterally Vital Signs: Last Vital Signs Pulse 78 12/20/24 11:34 BP 120/80 12/20/24 11:34 Pulse Ox 99 12/20/24 11:34 Oxygen Delivery Method Room Air 12/20/24 11:34 BMI result Body Mass Index 28.1 Office Procedures AMB Joint Injection/Aspiration Joint Injection/Aspiration Details: Procedure was explained to the patient and informed consent was obtained. ? Risks associated with the procedure were discussed with the patient including but not limited to bleeding, infection, drug reactions and reactions to the topical anesthetic. Patient made aware of signs to look out for infectious complications. The area of interest was identified and confirmed with patient. ?This was s ubsequently cleaned with chlorhexidine x 2. ? The area was then anesthetized using ethyl chloride spray. 20 mg Kenalog with 0.5 cc 1% lidocaine was injected without issue. ?Minimal to no bleeding. ?Patient tolerated procedure. Primary Site: left thumb Prep: site was prepped using aseptic technique and ethochloride spray was applied Injected: 20 mg of, Kenalog, with 0.5 mL of and 1% plain lidocaine Procedure: The patient tolerated the procedure well Coding - Small Joint Procedure code (CPT) selection complete Office Meds lidocaine (PF) 10 mg/mL (1 %) injection solution Performing Provider: Any Diaz MD Performing Location: [facility] [place] Rheumatology Administered by: Marisol Amor RN on 12/20/24 12:00 Dose Route Admin Location Dispensed Lot Number Expiration Date [facility] Tv Production Assistant 0.5 mL Infiltration 2 mL [id number] 09/22/26 20405-337-02 TANVISE SANTANA KABI Total Dispensed Waste 2 mL 75 % Kenalog 40 mg/mL suspension for injection Performing Provider: Any Diaz MD Performing Location: [facility] [place] Rheumatology Administered by: Marisol Amor RN on 12/20/24 12:00 Dose Route Admin Location Dispensed Lot Number Expiration Date [facility] T[employer] Production Assistant 20 mg intra-articular 1 mL [id number] 10/23/25 [address]-7 L JAY CHANCELLOR PHAR Total Dispensed Waste 1 mL 50 % Results Reviewed Results Reviewed: Laboratory Tests 04/29/24 10:31 Sodium 141 Potassium 4.5 Chloride 109 H Carbon Dioxide 26 BUN 17 H Creatinine 0.80 Total Bilirubin 0.4 AST 12 ALT 28 Alkaline Phosphatase 51 C-Reactive Protein < 0.10 Rheumatoid Factor < 13.0 Cycl Citrul Peptide IgG <16 HLA-B27 Negative XR Hands 12/2023 Gull wing erosion noted to the 2nd DIPs on the right. Central erosion noted. Peripheral osteophytes. Joint space narrowing involving PIPs and DIPs (my read) Assessment & Plan Assessment & Plan (1) Erosive (osteo)arthritis: Code(s): M15.4 - Erosive (osteo)arthritis Category: Medical Plan: #Erosive OA Patient is a 54 y.o. female with erosive osteoarthritis here today for follow up. Unfortunately there is limited treatment options for this. Recommend hand OT therapy as well as hand physical therapy. Also encouraged her to continue using diclofenac gel up to 4 times per day. Patient doing well with the Allyssa brex 100 mg twice a day RF and CCP negative. Normal inflammatory markers. 1st CMC steriod injections today Plan - Celebrex 100mg bid, can increase to 200mg bid if needed - Topical diclofenac 1% 4 times a day - CMC splinting - RTC 6 months (2) Low back pain: Code(s): M54.50 - Low back pain, unspecified Category: Medical Qualifiers: Chronicity: chronic Back pain laterality: midline Sciatica presence: without sciatica Qualified Code(s): M54.50 - Low back pain, unspecified; G89.29 - Other chronic pain Plan: #Low back pain Low back pain. XR L spine showing osteophytes and degenerative disease Plan Physical therapy (3) Osteopenia: Comment: DEXA 03/2024. AP Spine -2.3, Left femur neck -1.1, Left femur total -0.8. FRAX 13.3/1.6 Reclast stopped 05/2024 Code(s): M85.80 - Other specified disorders of bone density and structure, unspecified site Category: Medical Qualifiers: Osteopenia location: multiple sites Qualified Code(s): M85.89 - Other specified disorders of bone density and structure, multiple sites Plan: #Osteopenia Osteopenia involving the AP spine and the left femur neck. FRAX 13.3/1.6%. Treatment is not indicated at this time. Plan - Vitamin D supplementation - Weight bearing exercises - RTC 6 months - Labs beore next visit: Vit D (4) longterm (current) use of non-steroidal anti-inflammatories (nsaid): Code(s): Z79.1 - longterm (current) use of non-steroidal anti-inflammatories (NSAID) Category: Medical Plan: #Long-term Use of NSAIDs Discussed with patient the benefits and risk of NSAIDs for managing the rheumatic condition Benefits include: - Reduced the pain, improved mobility, and increased participation in activities Risks include: - GI upset, potential also worsening or formation (especially in patients > 65 years old) Recommended using proton pump inhibitors (PPIs) for the duration of NSAID use to reduce the risk of gastric ulcers Plan I spent 25 minutes reviewing the record and labs, seeing the patient, discussing the treatment plan and documenting in the medical record ? Orders: Orders AMB Joint Injection/Aspiration Today M19.049 - Primary osteoarthritis, unspecified hand OT Evaluation and Treatment Today M19.049 - Primary osteoarthritis, unspecified hand Medications: Refilled cholecalciferol (vitamin D3) 50 mcg PO DAILY 90 caps 1RF E55.9 - Vitamin D deficiency, unspecified lidocaine 5% leave on most painful area for up to 12 hrs topical 30 ea 1RF pain 30 days G89.29 - Other chronic pain, M47.817 - Spondylosis without myelopathy or radiculopathy, lumbosacral region, M54.50 - Low back pain, unspecified Coding Level of Care Code Est Pt Level 3 (71431) Complex EM visit Add On G2211 Diagnoses Erosive (osteo)arthritis M15.4 Chronic midline low back pain without sciatica M54.50; G89.29 Chronicity: chronic Back pain laterality: midline Sciatica presence: without sciatica Osteopenia of multiple sites M85.89 Osteopenia location: multiple sites longterm (current) use of non-steroidal anti-inflammatories (nsaid) Z79.1 CPT Codes Coding - - Small joint: 57572 - Small Joint ([id number])
[2024-12-20 11:34] VITALS: BP 120/80; PULSE 78; O2SAT 99; BMI 28.1
== END 2024-12-20 12:10 | disposition home or self-care (01) ==
LOC: HO.RHE 11:17
PROVIDERS: PCP Internal Medicine; Visit Provider Student in an Organized Health Care Education/Training Program
DX: M15.4 Erosive (osteo)arthritis (principal); M54.50 Low back pain, unspecified; G89.29 Other chronic pain; M85.89 Other specified disorders of bone density and structure, multiple sites; Z79.1 Long term (current) use of non-steroidal anti-inflammatories (NSAID); M19.042 Primary osteoarthritis, left hand
CPT/HCPCS: 20600; 99213

== ENCOUNTER → 2024-12-20 11:16 | Outpatient (BNVA) | payer OTHER, SELFPAY | PROVIDERS: PCP Internal Medicine; Visit Provider Student in an Organized Health Care Education/Training Program | DX: M19.042 Primary osteoarthritis, left hand (principal); F17.210 Nicotine dependence, cigarettes, uncomplicated; G89.29 Other chronic pain; M47.817 Spondylosis without myelopathy or radiculopathy, lumbosacral region; M54.50 Low back pain, unspecified; M81.0 Age-related osteoporosis without current pathological fracture; M85.89 Other specified disorders of bone density and structure, multiple sites; Z79.1 Long term (current) use of non-steroidal anti-inflammatories (NSAID) | CPT/HCPCS: 20600; 99212; J2003; J3300 ==

== ENCOUNTER 2025-01-02 08:56 | Outpatient (RCR) | payer OTHER, SELFPAY ==
--- NOTE | 2025-01-02 09:40 | MHC.OT.EP ---
[facility] Office [address] [facility] [phone] F: [phone] F: [phone] Occupational Therapy Plan of Care Patient Name: Gege Pradhan Date of Evaluation: 01/02/25 Diagnosis: L CMC J OA Pain Location: Pain Score: Pain Scale Used: Aggravating Factors: Alleviating Factors: Assessment: Pt is a R hand dominant female who presents w/ wasting of her L thenar and pain w/ palpation of her CMC J. She had been to skilled OT therapy years ago for fabrication of an orthoses which has helped to decrease her sx's. She is here today for a new orthoses to be fabricated to decrease pain and protect her L CMC J Frequency and Duration: The patient will be seen 1x visit for fabrication of an orthoses Short Term Goals: [place] [employer] Guide Goals: Pt will be complaint w/ jt. protection Pt will be complaint w/ orthoses wear Treatment Plan: Splinting Patient Education Electronically Signed By: Candida Max OTR/L Please Sign and return to therapist. Thank you once again for your referral.
== END 2025-01-02 09:41 | disposition home or self-care (01) ==
LOC: HO.OT 08:56
PROVIDERS: PCP Internal Medicine; Visit Provider Student in an Organized Health Care Education/Training Program
DX: M19.042 Primary osteoarthritis, left hand (principal)
CPT/HCPCS: 29130; 97165; 97760

== ENCOUNTER 2025-02-02 10:12 | Outpatient (AMB) | payer OTHER, SELFPAY ==
--- NOTE | 2025-02-02 10:15 | A.OFFPC_ITS ---
Vital Signs 02/02/25 10:21 Height 5 ft 5 in Weight 166 lb 6 oz BMI 27.7 BP 140/83 H Blood Pressure Location Rt brachial Position Sitting Respiration 16 Pulse 85 Pulse Source Pulse Oximeter Temp 98.3 F Temp Source Oral Pulse Oximetry (%) 96 Oxygen Delivery Method Room Air Intake Visit Reasons: review MRI Intake Note: patient here for follow up on MRI Recruiting And Selection Consultant Required: No Is last menstrual period known: No Post menopausal: No Patient : No Allergies amoxicillin (From Augmentin) Allergy (Verified 02/02/25 10:18) Hives clavulanic acid (From Augmentin) Allergy (Verified 02/02/25 10:18) Hives Tobacco use date assessed: 02/02/25 Dental Screening Dental Screen Date: 02/02/25 Did you have a dental visit in the last 12 months?: Yes Did you have a dental problem in the last 6 months where you did not have access to dental care?: No Was dental information given to patient?: Patient has dentist HPI HPI Comments History of Present Illness Details 54 year old female with a past medical h istory htn, resolved etoh use, esophageal stricture, thyroid nodules, depression presenting for follow up Psych: Anxiety & Depression: Has tried effexor, sertraline, wellbutrin and propranolol. Was on wellbutrin for years. continues addiction support on suboxone & acamprosate. She is on prozac hydroxyzine, trazodone. CV: Previously on BP meds, staying normotensive off. Weight gain when she stopped smoking despite diet and exercise. GI: Reflux, gastritis well controlled on PPI. Has esophageal stricture, gets dilation. Follow with [facility] Dr Bond. Continues to have intermittent deep right lower quarant/pelvic pain. multiple benign u/s CT scan 2022. Saw general surge ry. MRI ordered but not approved. MSK: Erosive arthritis, osteoarthritis. Following with Dr Diaz. Upcoming visit. Low back pain, DDD, joint pain, bilateral hands with swelling. On celebrex Endocrine: DXA with osteoporosis: consider treatment with rheumatology. Heme/Onc Neck u/s with LN-indeterminate, stable. She had biopsy which was reassuring Colonoscopy 2018-Dr Bond. 10 year repeat Follows annually with gynecology. s/p partial hysterectomy Mammo 07/2024 ROS see HPI PHYSICAL EXAM: GENERAL: Alert and oriented x 3. NAD EYES: EOMI. Anicteric. HENT: Moist mucous membranes. No scleral icterus. No cervical lymphadenopathy. LUNGS: Clear to auscultation bilaterally. CARDIOVASCULAR: Regular rate and rhythm. No murmur. No JVD. ABDOMEN: Soft, non-tender +bs. TTP RLQ EXTREMITIES: No edema. Non-tender. SKIN: No rashes or lesions. Warm. NEUROLOGIC: No focal neurological deficits. CN II-XII grossly intact PSYCHIATRIC: Cooperative. 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 non-steroidal anti-inflammatories (nsaid) Low back pain Hernia Lipoma of right upper extremity Narcotic abuse ETOH abuse Shoulder pain Depression Surgical History H/O hernia repair S/P excision of lipoma History of carpal tunnel release of both wrists History of partial hysterectomy Family History Father Asthma HTN (hypertension) Hypercholesteremia Cardiovascular disease Clotting disorder Maternal Grandmother Asthma HTN (hypertension) Hypercholesteremia Cardiovascular disease Paternal Grandfather Asthma Hypercholesteremia Leukemia Social History Housing: House Alcohol intake: former Patient Tobacco Use Status: Former Tobacco user Cigarette Packs Per Day: 1 Years Smoked: 43 quit 07/2023 e-Cigarette/Vaping Use: Never Used Second Hand Smoke Exposure: No Substance Use Type: Marijuana service: No Current occupational status: unemployed Cognitive needs: No Hearing needs: No Vision needs: No Questionnaire Thrive Questionnaire Date Thrive assessed: 07/22/24 DAMIAN-7 AMB Questionnaire DAMIAN-7 Date DAMIAN - 7 assessed: 01/04/24 Source: Developed by Drs. Chad Arteaga, Sofía Garvin, Dre Seymour and colleagues, with an educational ila from [employer]. Physical exam (Primary Care) Vital Signs: Last Vital Signs Temp 98.3 F 02/02/25 10:21 Pulse 85 02/02/25 10:21 Resp 16 02/02/25 10:21 BP 140/83 H 02/02/25 10:21 Pulse Ox 96 02/02/25 10:21 Oxygen Delivery Method Room Air 02/02/25 10:21 BMI result Body Mass Index 27.7 Tobacco/Smoking Status: Tobacco use Status Tobacco use date assessed 02/02/25 02/02/25 10:20 Patient Tobacco Use Status Former Tobacco user 02/02/25 10:17 e-Cigarette/Vaping Use Never Used 02/02/25 10:17 Thrive Assessment: Date of Thrive Assessment Date Thrive assessed 07/22/24 02/02/25 10:17 Coding Level of Care Code Est Pt Level 4 (61410) Complex EM visit Add On G2211 Diagnoses Major depressive disorder, recurrent, in partial remission F33.41 Primary hypertension I10 Hypertension type: primary hypertension Osteopenia of multiple sites M85.89 Osteopenia location: multiple sites Gastroesophageal reflux disease, unspecified whether esophagitis present K21.9 Esophagitis presence: esophagitis presence not specified Spondylosis of lumbosacral region, unspecified spinal osteoarthritis complication status M47.817 Spinal osteoarthritis complication: unspecified spinal osteoarthritis Assessment & Plan Assessment & Plan (1) Major depressive disorder, recurrent, in partial remission: Code(s): F33.41 - Major depressive disorder, recurrent, in partial remission Category: Medical (2) Hypertension: Comment: controlled Code(s): I10 - Essential (primary) hypertension Category: Medical Qualifiers: Hypertension type: primary hypertension Qualified Code(s): I10 - Essential (primary) hypertension (3) Osteopenia: Comment: DEXA 03/2024. AP Spine -2.3, Left femur neck -1.1, Left femur total -0.8. FRAX 13.3/1.6 Reclast stopped 05/2024 Code(s): M85.80 - Other specified disorders of bone density and structure, unspecified site Category: Medical Qualifiers: Osteopenia location: multiple sites Qualified Code(s): M85.89 - Other specified disorders of bone density and structure, multiple sites (4) GERD (gastroesophageal reflux disease): Code(s): K21.9 - Gastro-esophageal reflux disease without esophagitis Category: Medical Qualifiers: Esophagitis presence: esophagitis presence not specified Qualified Code(s): K21.9 - Gastro-esophageal reflux disease without esophagitis (5) Lumbosacral spondylosis: Code(s): M47.817 - Spondylosis without myelopathy or radiculopathy, lumbosacral region Category: Medical Qualifiers: Spinal osteoarthritis complication: unspecified spinal osteoarthritis Qualified Code(s): M47.817 - Spondylosis without myelopathy or radiculopathy, lumbosacral region Plan 54 y/o for follow up BH increase prozac to 40mg daily. continue other meds Chronic RLQ/pelvic pain-CT ordered MSK-stable. Following rheumatology Orders: Orders Hemoglobin A1c 02/02/25 F33.41 - Major depressive disorder, recurrent, in partial remission, I10 - Essential (primary) hypertension, L65.9 - Nonscarring hair loss, unspecified, R35.89 - Other polyuria CT abdomen pelvis wo/w IV con 02/02/25 R10.31 - Right lower quadrant pain TSH reflex Free T4 02/02/25 F33.41 - Major depressive disorder, recurrent, in partial remission, I10 - Essential (primary) hypertension, L65.9 - Nonscarring hair loss, unspecified, R35.89 - Other polyuria Comprehensive Met. Panel 02/02/25 F33.41 - Major depressive disorder, recurrent, in partial remission, I10 - Essential (primary) hypertension, L65.9 - Nonscarring hair loss, unspecified, R35.89 - Other polyuria Complete Blood Count Auto Diff 02/02/25 F33.41 - Major depressive disorder, recurrent, in partial remission, I10 - Essential (primary) hypertension, L65.9 - Nonscarring hair loss, unspecified, R35.89 - Other polyuria Medications: New fluoxetine 40 mg PO DAILY 90 caps 3RF Refilled hydroxyzine HCl 50 mg PO QID PRN 360 tabs 3RF itching 90 days omeprazole 20 mg PO DAILY 90 caps 3RF Discontinued fluoxetine Take 1/2 tab oral once daily for 2 weeks then increase to one tablet oral daily Discontinued Reason: Doctor's Order 20 mg PO DAILY 90 tabs 3RF
[2025-02-02 10:21] VITALS: BP 140/83; PULSE 85; RESP 16; TEMP 36.8; O2SAT 96; BMI 27.7
== END 2025-02-02 10:39 | disposition home or self-care (01) ==
LOC: HO.HMCFM 10:13
PROVIDERS: PCP Internal Medicine; Visit Provider Internal Medicine
DX: F33.41 Major depressive disorder, recurrent, in partial remission (principal); I10 Essential (primary) hypertension; M85.89 Other specified disorders of bone density and structure, multiple sites; K21.9 Gastro-esophageal reflux disease without esophagitis; M47.817 Spondylosis without myelopathy or radiculopathy, lumbosacral region

== ENCOUNTER 2025-02-02 10:12 | Outpatient (REF) | payer OTHER, SELFPAY ==
[2025-02-02 14:22] LABS: MANUAL DIFF FLAG NO
[2025-02-02 14:29] LABS: Hematocrit 42.5 % (37.0-47.0); Hemoglobin 14.3 g/dl (12.0-16.0); Imm Gran Abs Auto 0.02 X10*3/uL (0.00-0.03); Imm Gran Pct Auto 0.3 % (0.0-0.4); Lymphocytes Absolute Auto 1.9 X10*3/uL (1.2-4.9); Mean Corpuscular HGB Conc 33.6 g/dl (31.0-35.0); Mean Corpuscular Hemoglobin 29.7 pg (27.0-33.0); Mean Corpuscular Volume 88.2 fL (80.0-98.0); NRBC Abs Auto 0.000 X10*3/uL (0.0-0.012); NRBC Pct Auto 0.0 /100WBC (0.0-0.2); Platelet Count 220 X10*3/uL (160-400); Red Blood Count 4.82 X10*6/uL (4.20-5.50); White Blood Count 7.6 X10*3/uL (4.8-10.8)
[2025-02-02 14:49] LABS: Alanine Aminotransferase 32 U/L (0-31); Albumin Level 4.5 g/dL (3.5-5.0); Alkaline Phosphatase 61 U/L (39-117); Anion Gap 11 (12-20); Aspartate Amino Transferase 14 U/L (5-31); Blood Urea Nitrogen 15 mg/dL (9-16); Calcium 9.2 mg/dL (8.4-10.2); Carbon Dioxide 26 mmol/L (22-29); Chloride 106 mmol/L (96-108); Estimated Glomerular Filt Rate > 60; Potassium 4.4 mmol/L (3.3-5.1); Sodium 139 mmol/L (135-145); Total Protein 6.7 g/dL (6.5-8.0)
== END 2025-02-02 10:13 | disposition home or self-care (01) ==
LOC: HO.WFDLDS 10:12
PROVIDERS: PCP Internal Medicine; Visit Provider Internal Medicine
DX: F33.41 Major depressive disorder, recurrent, in partial remission (principal); K21.9 Gastro-esophageal reflux disease without esophagitis; I10 Essential (primary) hypertension; L65.9 Nonscarring hair loss, unspecified; M85.89 Other specified disorders of bone density and structure, multiple sites; M47.817 Spondylosis without myelopathy or radiculopathy, lumbosacral region; R35.89 Other polyuria; F11.20 Opioid dependence, uncomplicated
CPT/HCPCS: 36415; 80053; 83036; 84443; 85025; 99212

== ENCOUNTER 2025-05-01 08:14 | Outpatient (REF) | payer OTHER, SELFPAY ==
[2025-05-01 09:11] LABS: Anion Gap 10 (12-20); Blood Urea Nitrogen 15 mg/dL (9-16); Calcium 9.1 mg/dL (8.4-10.2); Carbon Dioxide 26 mmol/L (22-29); Chloride 109 mmol/L (96-108); Estimated Glomerular Filt Rate > 60; Potassium 4.2 mmol/L (3.3-5.1); Sodium 141 mmol/L (135-145)
== END 2025-05-01 08:15 | disposition home or self-care (01) ==
LOC: HO.LAB 08:14
PROVIDERS: PCP Internal Medicine; Visit Provider Internal Medicine
DX: R10.31 Right lower quadrant pain (principal)
CPT/HCPCS: 36415; 80048

== ENCOUNTER 2025-05-17 09:45 | Outpatient (AMB) | payer OTHER, SELFPAY ==
--- NOTE | 2025-05-17 09:49 | A.OFFPC_ITS ---
Vital Signs 05/17/25 09:52 Height 5 ft 5 in Weight 171 lb BMI 28.5 BP 118/84 Blood Pressure Location Lt brachial Position Sitting Respiration 16 Pulse 84 Pulse Source Pulse Oximeter Temp 98.2 F Temp Source Oral Pulse Oximetry (%) 98 Oxygen Delivery Method Room Air Intake Visit Reasons: ED follow-up Intake Note: Emergency room follow up Cruise Consultant Required: No Accompanied by: Spouse Allergies amoxicillin (From Augmentin) Allergy (Verified 05/17/25 09:49) Hives clavulanic acid (From Augmentin) Allergy (Verified 05/17/25 09:49) Hives Tobacco use date assessed: 02/02/25 Dental Screening Dental Screen Date: 02/02/25 HPI HPI Comments History of Present Illness Details 54 year old female with a past medical h istory htn, resolved etoh use, esophageal stricture, thyroid nodules, depression presenting for follow up Patient was seen in urgent care given cough medicine. She returned with a cough a few days a later and was in SVT. She was not feeling symptoms of elevated heart rate just continued cough. She was transported to the hospital and monitored. She reports taking coricidin but no sudafed etc. She completed a course of doxycycline and prednisone but still does not feel that breathing is back to baseline. Psych: Anxiety & Depression: Has tried effexor, sertraline, wellbutrin and propranolol. Was on wellbutrin for years. continues addiction support on suboxone & acamprosate. She is on prozac hydroxyzine, trazodone. CV: Previously on BP meds, staying normotensive off. Weight gain when she stopped smoking despite diet and exercise. GI: Reflux, gastritis well controlled on PPI. Has esophageal stricture, gets dilation. Follow with [facility] Dr Bond. Continues to have intermittent deep right lower quarant/pelvic pain. multiple benign u/s CT scan 2022. Saw general surgery . MRI ordered but not approved. CT right lower quadrant recommend. Her pain increased greatly since her recent URI began. MSK: Erosive arthritis, osteoarthritis. Following with Dr Diaz. Upcoming visit. Low back pain, DDD, joint pain, bilateral hands with swelling. On celebrex Endocrine: DXA with osteoporosis: Follows with rheumatology Heme/Onc Neck u/s with LN-indeterminate, stable. She had biopsy which was reassuring Colonoscopy 2018-Dr Bond. 10 year repeat Follows annually with gynecology. s/p partial hysterectomy Mammo 07/2024 ROS see HPI PHYSICAL EXAM: GENERAL: Alert and oriented x 3. NAD EYES: EOMI. Anicteric. HENT: Moist mucous membranes. No scleral icterus. No cervical lymphadenopathy. LUNGS: Clear to auscultation bilaterally. CARDIOVASCULAR: Regular rate and rhythm. No murmur. No JVD. ABDOMEN: Soft, non-tender +bs. TTP RLQ EXTREMITIES: No edema. Non-tender. SKIN: No rashes or lesions. Warm. NEUROLOGIC: No focal neurological deficits. CN II-XII grossly intact PSYCHIATRIC: Cooperative. 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 anti-inflammatories (nsaid) Low back pain Hernia Lipoma of right upper extremity Narcotic abuse ETOH abuse Shoulder pain Depression Surgical History H/O hernia repair S/P excision of lipoma History of carpal tunnel release of both wrists History of partial hysterectomy Family History Father Asthma HTN (hypertension) Hypercholesteremia Cardiovascular disease Clotting disorder Maternal Grandmother Asthma HTN (hypertension) Hypercholesteremia Cardiovascular disease Paternal Grandfather Asthma Hypercholesteremia Leukemia Social History Housing: House Alcohol intake: former Patient Tobacco Use Status: Former Tobacco user Cigarette Packs Per Day: 1 Years Smoked: 43 quit 07/2023 e-Cigarette/Vaping Use: Never Used Second Hand Smoke Exposure: No Substance Use Type: Marijuana service: No Current occupational status: unemployed Cognitive needs: No Hearing needs: No Vision needs: No Questionnaire Thrive Questionnaire Date Thrive assessed: 07/22/24 DAMIAN-7 AMB Questionnaire DAMIAN-7 Date DAMIAN - 7 assessed: 01/04/24 Source: Developed by Drs. Chad Arteaga, Sofía Garvin, Dre Seymour and colleagues, with an educational ila from [employer]. Physical exam (Primary Care) Vital Signs: Last Vital Signs Temp 98.2 F 05/17/25 09:52 Pulse 84 05/17/25 09:52 Resp 16 05/17/25 09:52 BP 118/84 05/17/25 09:52 Pulse Ox 98 05/17/25 09:52 Oxygen Delivery Method Room Air 05/17/25 09:52 BMI result Body Mass Index 28.5 Tobacco/Smoking Status: Tobacco use Status Tobacco use date assessed 02/02/25 05/17/25 09:50 Patient Tobacco Use Status Former Tobacco user 05/17/25 09:50 e-Cigarette/Vaping Use Never Used 05/17/25 09:50 Thrive Assessment: Date of Thrive Assessment Date Thrive assessed 07/22/24 05/17/25 09:50 Coding Level of Care Code Est Pt Level 4 (56773) Diagnoses Major depressive disorder, recurrent, in partial remission F33.41 Primary hypertension I10 Hypertension type: primary hypertension SVT (supraventricular tachycardia) I47.10 Right lower quadrant abdominal pain R10.31 Assessment & Plan Assessment & Plan (1) Major depressive disorder, recurrent, in partial remission: Code(s): F33.41 - Major depressive disorder, recurrent, in partial remission Category: Medical (2) Hypertension: Comment: controlled Code(s): I10 - Essential (primary) hypertension Category: Medical Qualifiers: Hypertension type: primary hypertension Qualified Code(s): I10 - Essential (primary) hypertension (3) SVT (supraventricular tachycardia): Code(s): I47.10 - Supraventricular tachycardia, unspecified Category: Medical (4) Right lower quadrant abdominal pain: Code(s): R10.31 - Right lower quadrant pain Category: Surgical Plan SVT-exam normal today. holter ordered MDD is stable URI/wheezing-azithromycin ordered RLQ continues, worse since recent URI Orders: Orders Basic Metabolic Panel 05/17/25 I10 - Essential (primary) hypertension ECG 7 day holter monitor 05/17/25 I47.10 - Supraventricular tachycardia, unspecified Referrals Dermatology Referral L65.9 - Nonscarring hair loss, unspecified Medications: New azithromycin For 250 mg dose pack: take 500 mg today (day 1), then 250 mg for 4 days (days 2-5) PO 6 tabs 0RF Refilled Wegovy (semaglutide (weight loss)) administer weeks 1 through 4 of therapy 0.25 mg (0.5 mL) subcut QWEEK 2 mL 0RF NS E66.3 - Overweight, I10 - Essential (primary) hypertension
[2025-05-17 09:52] VITALS: BP 118/84; PULSE 84; RESP 16; TEMP 36.8; O2SAT 98; BMI 28.5
--- OUTSIDE RECORDS SUMMARY | 2025-05-17 09:52 | XMS_ITS | Encounter Summary ---
Author Organization [facility] Prior to 03/25/[address] [place] [address] Care Team Providers Care Fast Food Cashier Name Role Phone Ying Ortega MD Primary Care Provider Un available Maia Fraser MD Primary Care Provider Encounter Details Date Type Department Care Team Description 04/08/2021 Consumer Insights Intern Report Medical Records [address] [place] [address] Abstract, Provider Social History Tobacco Use Types [...] on filedocumented in this encounter Care Teams Fast Food Cashier Relationship Specialty Start Date End Date Ying Ortega MD PCP - General 08/14/08 09/12/21 Maia Fraser MD [address] [place] [address] PCP - General Internal Medicine 09/13/21 documented as of this encounter
--- OUTSIDE RECORDS SUMMARY | 2025-05-17 09:52 | XMS_ITS | Encounter Summary ---
Author Organization [facility] Prior to 03/25/[address] [place] [address] Care Team Providers Care Hoop Maker Name Role Phone Ying Ortega MD Primary Care Provider Un available Maia Fraser MD Primary Care Provider Encounter Details Date Type Department Care Team Description 09/27/2015 Meat Lugger Report Medical Records [address] [place] [address] Rehab, [facility] [address] [place] [address] Social History Tobacco Use Types Packs/Day Years [...] on filedocumented in this encounter Care Teams Hoop Maker Relationship Specialty Start Date End Date Ying Ortega MD PCP - General 08/14/08 09/12/21 Maia Fraser MD [address] [place] [address] PCP - General Internal Medicine 09/13/21 documented as of this encounter
--- OUTSIDE RECORDS SUMMARY | 2025-05-17 09:52 | XMS_ITS | Encounter Summary ---
Author Organization [facility] Prior to 03/25/[address] [place] [address] Care Team Providers Care Fire Extinguisher Repairer Inspector Name Role Phone Ying Ortega MD Primary Care Provider Un available Maia Fraser MD Primary Care Provider Encounter Details Date Type Department Care Team Description 11/14/2010 Hospital Medical Records [address] [place] [address] Guillermo Carrasco Social History Tobacco Use Types [...] on filedocumented in this encounter Care Teams Fire Extinguisher Repairer Inspector Relationship Specialty Start Date End Date Ying Ortega MD PCP - General 08/14/08 09/12/21 Maia Fraser MD [address] [place] [address] PCP - General Internal Medicine 09/13/21 documented as of this encounter
--- OUTSIDE RECORDS SUMMARY | 2025-05-17 09:52 | XMS_ITS | Encounter Summary ---
Author Organization [facility] Prior to 03/25/[address] [place] [address] Care Team Providers Care Grain Miller Helper Name Role Phone Ying Ortega MD Primary Care Provider Un available Maia Fraser MD Primary Care Provider [phone] Encounter Details Date Type Department Care Team Description 06/15/2012 Mri Assistant Report Medical Records [address] [place] [address] Chris Michael Social History Tobacco Use Types [...] on filedocumented in this encounter Care Teams Grain Miller Helper Relationship Specialty Start Date End Date Ying Ortega MD PCP - General 08/14/08 09/12/21 Maia Fraser MD [address] [place] [address] PCP - General Internal Medicine 09/13/21 documented as of this encounter
--- OUTSIDE RECORDS SUMMARY | 2025-05-17 09:52 | XMS_ITS | Encounter Summary ---
Author Organization [facility] Prior to 03/25/[address] [place] [address] Care Team Providers Care Intensive Care Anaesthetist Name Role Phone Ying Ortega MD Primary Care Provider Un available Maia Fraser MD Primary Care Provider + [phone] Reason for Visit * Reason Comments E-prescribe Rx Request Encounter Details Date Type Department Care Team Description 02/11/2017 Refill Medicine/Pediatrics [address] [address] Hira Tong PA-C E-prescribe Rx Request Social [...] FAMILY HEALTH PLAN / Plan: POS $12 [place] [id number] / Product Type: POS [id number]-Diiaiwc documented in this encounter Plan of Treatment Not on file documented as of this encounter Visit Diagnoses Not on filedocumented in this encounter Care Teams Intensive Care Anaesthetist Relationship Specialty Start Date End Date Ying Ortega MD PCP - General 08/14/08 09/12/21 Maia Fraser MD [address] [place] [address] PCP - General Internal Medicine 09/13/21 documented as of this encounter
--- OUTSIDE RECORDS SUMMARY | 2025-05-17 09:52 | XMS_ITS | Encounter Summary ---
Author Organization [facility] Prior to 03/25/[address] [place] [address] Care Team Providers Care Automotive Airconditioning Mechanic Name Role Phone Ying Ortega MD Primary Care Provider Un available Maia Fraser MD Primary Care Provider [phone] Encounter Details Date Type Department Care Team Description 05/05/2013 Release of Information Medical Records [address] [place] [address] Abstract, Provider Social History Tobacco Use Types [...] on filedocumented in this encounter Care Teams Automotive Airconditioning Mechanic Relationship Specialty Start Date End Date Ying Ortega MD PCP - General 08/14/08 09/12/21 Maia Fraser MD [address] [place] [address] PCP - General Internal Medicine 09/13/21 documented as of this encounter
--- OUTSIDE RECORDS SUMMARY | 2025-05-17 09:52 | XMS_ITS | Encounter Summary ---
Author Organization [facility] Prior to 03/25/[address] [place] [address] Care Team Providers Care Equipment Operating Engineer Name Role Phone Ying Ortega MD Primary Care Provider Un available Maia Fraser MD Primary Care Provider Encounter Details Date Type Department Care Team Description 07/09/2018 Release of Information Medical Records [address] [place] [address] Abstract, Provider Social History Tobacco Use Types [...] on filedocumented in this encounter Care Teams Equipment Operating Engineer Relationship Specialty Start Date End Date Ying Ortega MD PCP - General 08/14/08 09/12/21 Maia Fraser MD [address] [place] [address] PCP - General Internal Medicine 09/13/21 documented as of this encounter
--- OUTSIDE RECORDS SUMMARY | 2025-05-17 09:52 | XMS_ITS | Encounter Summary ---
Author Organization [facility] Prior to 03/25/[address] [place] [address] Care Team Providers Care Hairpiece Stylist Name Role Phone Ying Ortega MD Primary Care Provider Un available Maia Fraser MD Primary Care Provider Encounter Details Date Type Department Care Team Description 02/02/2013 MOTORCYCLE TECHNICIAN/MassPat Report Medical Records [address] [place] [address] Abstract, Provider Social History Tobacco Use Types [...] on filedocumented in this encounter Care Teams Hairpiece Stylist Relationship Specialty Start Date End Date Ying Ortega MD PCP - General 08/14/08 09/12/21 Maia Fraser MD [address] [place] [address] PCP - General Internal Medicine 09/13/21 documented as of this encounter
--- OUTSIDE RECORDS SUMMARY | 2025-05-17 09:52 | XMS_ITS | Encounter Summary ---
Author Organization [facility] Prior to 03/25/[address] [place] [address] Care Team Providers Care Bottled Beverage Inspector Name Role Phone Ying Ortega MD Primary Care Provider Un available Maia Fraser MD Primary Care Provider [phone] Encounter Details Date Type Department Care Team Description 05/08/2014 Traffic Coordinator Report Medical Records [address] [place] [address] Padmaja Palumbo MD Social History Tobacco Use [...] on filedocumented in this encounter Care Teams Bottled Beverage Inspector Relationship Specialty Start Date End Date Ying Ortega MD PCP - General 08/14/08 09/12/21 Maia Fraser MD [address] [place] [address] PCP - General Internal Medicine 09/13/21 documented as of this encounter
--- OUTSIDE RECORDS SUMMARY | 2025-05-17 09:52 | XMS_ITS | Clinical Summary ---
Author Organization [facility] Prior to 03/25/[address] [place] [address] Care Team Providers Care Cop Breaker Name Role Phone Maia Fraser MD Primary Care Provider [phone] Allergies Active Allergy Reactions Severity Noted Date [...] Opiate dependence restarted 02/2011 Overview: Dr Jordan, [place] SUBOXONE, this ended with hospitalization in October [...] Status Comments Father (Age 67) CVA x2, [place] x3, CAD-lung disease (07/02/14) Maternal Grandfather (Age 84) le ukemia Maternal Grandmother Alive osteopo rosis, CVA age 92 Mother Alive osteoporosis, p ancreas tumor removed. Many cysts in body Mother's side Paternal Grandfather (Age 70s) kathy lesterheimer's Paternal Grandmother (Age 70s) l luna ca [...] 54 02/14/2021 1:11 PM EDT Temperature 36.3 C (97.3 F) 05/08/2021 4:18 PM EST Respiratory Rate 16 07/23/2020 10:47 AM EST [...] Td or Tdap) 02/22/2022 02/23/2012 INFLUENZA (#1) 2025 05/08/2021, 03/0 10/2016, 03/20/2015, Additional history exists CHOLESTEROL SCREENING 05/14/2025 05/14/2020 , 01/26/2014, 06/25/2008 (External Completion) COLON CANCER SCREENING 07/28/2028 07/28/2018, 2018 PNEUMOCOCCAL VACCINE FOR HIG H RISK PATIENTS (#1) 2033 Care Teams Cop Breaker Relationship Specialty Start Date End Date Maia Fraser MD [address] [place], [place] PCP - General Internal Medicine 09/13/21
--- OUTSIDE RECORDS SUMMARY | 2025-05-17 09:52 | XMS_ITS | Encounter Summary ---
Author Organization [facility] Prior to 03/25/[address] [place] [address] Care Team Providers Care Data Mining Analyst Name Role Phone Ying Ortega MD Primary Care Provider Un available aMia Fraser MD Primary Care Provider Encounter Details Date Type Department Care Team Description 03/23/2012 Didactic Program In Dietetics Director Report Medical Records [address] [place] [address] Chris Michael Social History Tobacco Use Types [...] filedocumented in this encounter Care Teams Data Mining Analyst Relationship Specialty Start Date End Date Ying Ortega MD PCP - General 08/14/08 09/12/21 Maia Fraser MD [address] [place] [address] PCP - General Internal Medicine 09/13/21 documented as of this encounter
--- OUTSIDE RECORDS SUMMARY | 2025-05-17 09:52 | XMS_ITS | Encounter Summary ---
Author Organization [facility] Prior to 03/25/2024 Address [address] [place] [address] Care Team Providers Care Giver Name Role Phone Ying Ortega MD Primary Care Provider Un available Maia Fraser MD Primary Care Provider [phone] Encounter Details Date Type Department Care Team Description 02/28/2015 [facility] Medical Records [address] [place] [address] Tri Lopez MD Social History Tobacco Use [...] on filedocumented in this encounter Care Teams Giver Relationship Specialty Start Date End Date Ying Ortega MD PCP - General 08/14/08 09/12/21 aMia Fraser MD [address] [place] [address] PCP - General Internal Medicine 09/13/21 documented as of this encounter
--- OUTSIDE RECORDS SUMMARY | 2025-05-17 09:52 | XMS_ITS | Encounter Summary ---
Author Organization [facility] Prior to 03/25/[address] [place] [address] Care Team Providers Care Licensed Funeral Director Name Role Phone Ying Ortega MD Primary Care Provider Un available Maia Fraser MD Primary Care Provider Encounter Details Date Type Department Care Team Description 05/04/2013 Induction Machine Operator Report Medical Records [address] [place] [address] Padmaja Palumbo MD Social History Tobacco Use [...] on filedocumented in this encounter Care Teams Licensed Funeral Director Relationship Specialty Start Date End Date Ying Ortega MD PCP - General 08/14/08 09/12/21 Maia Fraser MD [address] [place] [address] PCP - General Internal Medicine 09/13/21 documented as of this encounter
--- OUTSIDE RECORDS SUMMARY | 2025-05-17 09:52 | XMS_ITS | Encounter Summary ---
Author Organization [facility] Prior to 03/25/[address] [place] [address] Care Team Providers Care Slug Press Operator Name Role Phone Ying Ortega MD Primary Care Provider Un available Maia Fraser MD Primary Care Provider Encounter Details Date Type Department Care Team Description 05/20/2013 Oil Distributor Tender Report Medical Records [address] [place] [address] Padmaja Palumbo MD Social History Tobacco Use [...] on filedocumented in this encounter Care Teams Slug Press Operator Relationship Specialty Start Date End Date Ying Ortega MD PCP - General 08/14/08 09/12/21 Maia Fraser MD [address] [place] [address] PCP - General Internal Medicine 09/13/21 documented as of this encounter
--- OUTSIDE RECORDS SUMMARY | 2025-05-17 09:52 | XMS_ITS | Encounter Summary ---
Author Organization [facility] Prior to 03/25/[address] [place] [address] Care Team Providers Care Senior Advisory Name Role Phone Ying Ortega MD Primary Care Provider Un available Maia Fraser MD Primary Care Provider [phone] Encounter Details Date Type Department Care Team Description 12/21/2015 Orders Only Medicine/Pediatrics - [address] [address] Hira Tong PA-C Social History Tobacco Use [...] on filedocumented in this encounter Care Teams Senior Advisory Relationship Specialty Start Date End Date Ying Ortega MD PCP - General 08/14/08 09/12/21 Maia Fraser MD [address] [place] [address] PCP - General Internal Medicine 09/13/21 documented as of this encounter
--- OUTSIDE RECORDS SUMMARY | 2025-05-17 09:52 | XMS_ITS | Encounter Summary ---
Author Organization [facility] Prior to 03/25/[address] [place] [address] Care Team Providers Care Instructor Military Science Name Role Phone Ying Ortega MD Primary Care Provider Un available Maia Fraser MD Primary Care Provider Encounter Details Date Type Department Care Team Description 03/03/2019 [facility] Medical Records [address] [place] [address] Cheng Bond MD Social History Tobacco Use [...] on filedocumented in this encounter Care Teams Instructor Military Science Relationship Specialty Start Date End Date Ying Ortega MD PCP - General 08/14/08 09/12/21 Maia Fraser MD [address] [place] [address] PCP - General Internal Medicine 09/13/21 documented as of this encounter
--- OUTSIDE RECORDS SUMMARY | 2025-05-17 09:52 | XMS_ITS | Encounter Summary ---
Author Organization [facility] Prior to 03/25/[address] [place] [address] Care Team Providers Care Trip Rider Name Role Phone Ying Ortega MD Primary Care Provider Un available Maia Fraser MD Primary Care Provider Encounter Details Date Type Department Care Team Description 05/06/2013 Whiskey Filterer Report Medical Records [address] [place] [address] Padmaja Palumbo MD Social History Tobacco Use [...] on filedocumented in this encounter Care Teams Trip Rider Relationship Specialty Start Date End Date Ying Ortega MD PCP - General 08/14/08 09/12/21 Maia Fraser MD [address] [place] [address] PCP - General Internal Medicine 09/13/21 documented as of this encounter
--- OUTSIDE RECORDS SUMMARY | 2025-05-17 09:52 | XMS_ITS | Encounter Summary ---
Author Organization [facility] Prior to 03/25/[address] [place] [address] Care Team Providers Care Viscosity Tester Name Role Phone Ying Ortega MD Primary Care Provider Un available Maia Fraser MD Primary Care Provider [phone] Encounter Details Date Type Department Care Team Description 11/13/2020 Undraped Artist Model Report Medical Records [address] [place] [address] Abstract, Provider Social History Tobacco Use Types [...] on filedocumented in this encounter Care Teams Viscosity Tester Relationship Specialty Start Date End Date Ying Ortega MD PCP - General 08/14/08 09/12/21 Maia Fraser MD [address] [place] [address] PCP - General Internal Medicine 09/13/21 documented as of this encounter
== END 2025-05-17 10:31 | disposition home or self-care (01) ==
LOC: HO.HMCFM 09:46
PROVIDERS: PCP Internal Medicine; Visit Provider Internal Medicine
DX: F33.41 Major depressive disorder, recurrent, in partial remission (principal); I10 Essential (primary) hypertension; I47.10 Supraventricular tachycardia, unspecified; R10.31 Right lower quadrant pain

== ENCOUNTER → 2025-05-17 09:45 | Outpatient (BNVA) | payer OTHER, SELFPAY | PROVIDERS: PCP Internal Medicine; Visit Provider Internal Medicine | DX: I10 Essential (primary) hypertension (principal); F41.9 Anxiety disorder, unspecified; K21.9 Gastro-esophageal reflux disease without esophagitis; K22.2 Esophageal obstruction; M54.50 Low back pain, unspecified; M79.642 Pain in left hand; M79.641 Pain in right hand; F33.41 Major depressive disorder, recurrent, in partial remission; I47.10 Supraventricular tachycardia, unspecified; R10.31 Right lower quadrant pain; E66.3 Overweight; Z68.28 Body mass index [BMI] 28.0-28.9, adult | CPT/HCPCS: 99212 ==